=== PATIENT | male | born 1970 | race Caucasian/White ===

== ENCOUNTER 2020-05-16 12:02 | Observation (INO) | payer SELFPAY ==
[~2020-05-16] VITALS: Ht 172 cm; Wt 86.5 kg
--- NOTE | 2020-05-16 12:25 | ED Chest Pain ---
General Stated Complaint: CHEST PAIN;SOA;LEFT SIDE FACIAL TIGHTNESS Source: patient Exam Limitations: no limitations History of Present Illness Date Seen by Provider: May 16, 2020 Time Seen by Provider: 12:01 Initial Comments The patient presents to ER by private conveyance from home with chief complaint of 2 days of progressively worsening for body aches and left-sided chest pain worsening on deep inspiration or direct palpation. He also has some left-sided abdominal pain. He does not follow routinely with a doctor nor take any medications. No previous history of coronary disease that he is aware of. He do es not know of any other medical problems or risk factors. He does not smoke cigarettes but has a remote history of cannabis use. He does occasionally drink alcohol but none recently. He says the past 2 days she's been too weak to get out of bed and feels like he is having all over pain 25 out of 10. He has not taken any NSAIDs or Tylenol for his pain. He has not seen any other provider prior to coming here. He has not had any recent travel outside the area. 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 He has been working in the heat recently. He is not having any lateralizing symptoms. No confusion double vision dysuria cough fever, chills, nausea, vomiting, diarrhea, constipation. No known sick contacts. Allergies and Home Medications Allergies Coded Allergies: No Known Drug Allergies (Unverified , 04/08/15) Patient Home Medication List Home Medication List Reviewed: Yes Review of Systems Review of Systems Constitutional: No chills, No fever; malaise, weakness EENTM: No Blurred Vision, No Double Vision Respiratory: Denies Cough, Denies Shortness of Air Cardiovascular: See HPI, Chest Pain; Denies Edema Gastrointestinal: Denies Abdomen Distended, Denies Abdominal Pain Genitourinary: Denies Burning, Denies Discharge Musculoskeletal: No back pain, No joint pain Skin: No change in color, No lumps, No pruritus, No rash Psychiatric/Neurological: Denies Headache, Denies Numbness, Denies Paresthesia, Denies Seizure Hematologic/Lymphatic: Denies Anemia, Denies Blood Clots All Other Systems Reviewed Negative Unless Noted: Yes Past Qzzrztm-Whidvc-Sjehku Hx Patient Social History Alcohol Use: Occasionally Uses Recreational Drug Use: No Smoking Status: Current Everyday Smoker Type Used: Cigarettes Physical Exam Vital Signs Vital Signs - First Documented 05/16/20 12:05 Temp 37.0 Pulse 57 Resp 18 B/P (MAP) 152/106 (121) Pulse Ox 98 O2 Delivery Room Air Capillary Refill : Height, Weight, BMI Height: 0'67.00" Weight: 189lbs. oz. 85.399479di; BMI Method: General Appearance: WD/WN, Moderate Distress HEENT: PERRL/EOMI, Pharynx Normal, Moist Mucous Membranes Neck: Full Range of Motion, Normal Inspection Respiratory: No Chest Non Tender (left chest pain reproducible to direct palpation); Lungs Clear, Normal Breath Sounds, No Accessory Muscle Use, No Respiratory Distress Cardiovascular: Regular Rate, Rhythm, No Edema, Normal Peripheral Pulses Gastrointestinal: Normal Bowel Sounds, Non Tender, Soft Extremity: Normal Capillary Refill, Normal Inspection, No Pedal Edema Neurologic/Psychiatric: Alert, Oriented x3, No Motor/Sensory Deficits, Normal Mood/Affect, pheresis specialist II-XII Norm as Tested, Other (NIH of 0 points) Skin: Normal Color, Warm/Dry Progress/Results/Core Measures Results/Orders Lab Results Laboratory Tests Test 05/16/20 12:30 Range/Units White Blood Count 7.7 4.3-11.0 10^3/uL Red Blood Count 4.63 4.35-5.85 10^6/uL Hemoglobin 14.0 13.3-17.7 G/DL Hematocrit 41 40-54 % Mean Corpuscular Volume 89 80-99 FL Mean Corpuscular Hemoglobin 30 25-34 PG Mean Corpuscular Hemoglobin Concent 34 32-36 G/DL Red Cell Distribution Width 14.0 10.0-14.5 % Platelet Count 315 130-400 10^3/uL Mean Platelet Volume 9.9 7.4-10.4 FL Neutrophils (%) (Auto) 53 42-75 % Lymphocytes (%) (Auto) 36 12-44 % Monocytes (%) (Auto) 7 0-12 % Eosinophils (%) (Auto) 3 0-10 % Basophils (%) (Auto) 1 0-10 % Neutrophils # (Auto) 4.1 1.8-7.8 X 10^3 Lymphocytes # (Auto) 2.8 1.0-4.0 X 10^3 Monocytes # (Auto) 0.6 0.0-1.0 X 10^3 Eosinophils # (Auto) 0.3 0.0-0.3 10^3/uL Basophils # (Auto) 0.0 0.0-0.1 10^3/uL Prothrombin Time 12.3 12.2-14.7 SEC INR Comment 0.9 0.8-1.4 Activated Partial Thromboplast Time 31 24-35 SEC D-Dimer 0.53 H 0.00-0.49 UG/ML Sodium Level 140 135-145 MMOL/L Potassium Level 4.0 3.6-5.0 MMOL/L Chloride Level 107 98-107 MMOL/L Carbon Dioxide Level 22 21-32 MMOL/L Anion Gap 11 5-14 MMOL/L Blood Urea Nitrogen 15 7-18 MG/DL Creatinine 0.91 0.60-1.30 MG/DL Estimat Glomerular Filtration Rate > 60 BUN/Creatinine Ratio 16 Glucose Level 89 70-105 MG/DL Calcium Level 8.9 8.5-10.1 MG/DL Corrected Calcium 8.7 8.5-10.1 MG/DL Magnesium Level 2.0 1.6-2.4 MG/DL Total Bilirubin 0.6 0.1-1.0 MG/DL Aspartate Amino Transf (AST/SGOT) 20 5-34 U/L Alanine Aminotransferase (ALT/SGPT) 41 0-55 U/L Alkaline Phosphatase 83 40-136 U/L Lactate Dehydrogenase 193 125-220 U/L Total Creatine Kinase 118 30-200 U/L Myoglobin 25.6 10.0-92.0 NG/ML Troponin I < 0.028 <0.028 NG/ML C-Reactive Protein High Sensitivity 0.77 H 0.00-0.50 MG/DL B-Type Natriuretic Peptide 28.3 <100.0 PG/ML Total Protein 7.2 6.4-8.2 GM/DL Albumin 4.2 3.2-4.5 GM/DL Procalcitonin 0.03 <0.10 NG/ML My Orders Orders - HEMANT SABA Procalcitonin (Pct) (05/16/20 12:20) Hs C Reactive Protein (05/16/20 12:20) LDH (05/16/20 12:20) Blood Culture (05/16/20 12:20) Sputum Culture (05/16/20 12:20) Ekg Tracing (05/16/20 12:20) Chest 1 View, Ap/Pa Only (05/16/20 12:20) Coronavirus Sars-Cov-2 So 2018 (05/16/20 12:20) Cbc With Automated Diff (05/16/20 12:20) Magnesium (05/16/20 12:20) Comprehensive Metabolic Panel (05/16/20 12:20) Myoglobin Serum (05/16/20 12:20) Protime With Inr (05/16/20 12:20) Partial Thromboplastin Time (05/16/20 12:20) O2 (05/16/20 12:20) Monitor-Rhythm Ecg Trace Only (05/16/20 12:20) Lipid Panel (05/17/20 06:00) Ed Iv/Invasive Line Start (05/16/20 12:20) Creatine Kinase (05/16/20 12:20) BNP (05/16/20 12:20) Troponin I (05/16/20 12:20) Nitroglycerin 0.4 Mg Btl 25's (Nitrostat (05/16/20 12:30) Aspirin Chewable Tablet (Baby Aspirin Ch (05/16/20 12:30) Ed Iv/Invasive Line Start (05/16/20 12:26) Lactated Ringers (Lr 1000 Ml Iv Solution (05/16/20 12:26) Fibrin Degradation Products (05/16/20 12:30) Morphine Injection (Morphine Injection (05/16/20 12:51) Morphine Injection (Morphine Injection (05/16/20 12:52) Morphine Injection (Morphine Injection (05/16/20 13:15) Ct Angio Chest W (05/16/20 13:26) Medications Given in ED Current Medications Medications Dose Ordered Sig/Fidencio Route Start Time Stop Time Status Last Admin Dose Admin Aspirin 324 mg ONCE ONCE PO 05/16/20 12:30 05/16/20 12:31 DC 05/16/20 12:42 324 MG Lactated Ringer's 1,000 ml @ 0 mls/hr Q0M ONCE IV 05/16/20 12:26 05/16/20 12:27 DC 05/16/20 12:42 1,000 MLS/HR Nitroglycerin 0.4 mg UD PRN SL 05/16/20 12:30 05/16/20 12:42 0.4 MG Vital Signs/I&O 05/16/20 05/16/20 12:05 12:05 Temp 37.0 Pulse 57 Resp 18 B/P (MAP) 152/106 (121) Pulse Ox 98 O2 Delivery Room Air Progress Progress Note #1: Time: 12:26 Progress Note Plan to workup his chest pain with aspirin and nitroglycerin. Chest x-ray and lab. Heat exhaustion is a possibility. Because of his all over body aches we'll also swabbed for coronavirus, influenza. Aseptic vital signs. We'll hold off on the antibiotics. 1 L of lactated Ringer's. Progress Note #2: Time: 13:16 Progress Note nitroglycerin had a modest effect on his blood pressure but did nothing for his pain. He still rates it as 10 out of 10. 2 mg morphine were given which she says had no effect. We will attempt 4 milligrams morphine. Blood pressure standing 130-150 systolic range. Progress Note #3: Time: 13:44 Progress Note Patient's symptoms have improved some but he still feeling quite weak after the 4 mg morphine. Vital signs are still aseptic. Because of the modestly elevated d-dimer and chest pain plan to send him for CT angiogram on his way upstairs. We have communicated this to Dr. Tellez and she is okay with this plan. Chest pain does not improve with nitroglycerin and is reproducible to direct palpation. It be reasonable to trend some serial troponin since are going to keep him. Plan to keep him for IV rehydration secondary to heat exhaustion. COVID-19 test is pending. Initial ECG Impression Date: May 16, 2020 Initial ECG Impression Time: 12:08 Initial ECG Rate: 55 Initial ECG Rhythm: Normal Sinus Initial ECG Intervals: Normal Initial ECG Impression: Normal Initial ECG Comparisson: No Previous ECG Available Comment Normal sinus rhythm without ST-T wave elevation or depression. borderline mean electrical axis left deviation. Diagnostic Imaging Diagonstic Imaging: Xray Plain Films/CT/US/NM/MRI: chest Comments [facility], [place] NAME: TOM LLAMAS MED REC#: [id number] PT STATUS: ADM Rito : 1970 PHYSICIAN: HEMANT SABA MD ADMIT DATE: 05/16/20/[facility] Draft Date of Exam:05/16/20 CHEST 1 VIEW, AP/PA ONLY INDICATION: Weakness and positive COVID. TIME OF EXAM: 1:33 PM. COMPARISON: No prior studies are available for comparison. FINDINGS: The lungs appear to be clear. The pulmonary vascularity is normal. No infiltrate, effusion, or pneumothorax is detected. There are postop changes in the lower cervical spine. IMPRESSION: No acute cardiopulmonary process is detected. Dictated on workstation # [id number] Dict: 05/16/20 1406 Trans: 05/16/20 1417 [id number] Interpreted by: SYLVESTER KAPOOR MD Electronically signed by: Reviewed: Reviewed by Md Diagonstic Imaging: CT (angiogram) Plain Films/CT/US/NM/MRI: chest Comments [facility] [place] NAME: TOM LLAMAS [facility] REC#: [id number] PT STATUS: ADM Rito : 1970 PHYSICIAN: HEMANT SABA MD ADMIT DATE: 05/16/20/[facility] Signed Date of Exam:05/16/20 CT ANGIO CHEST W PROCEDURE: CT angiography Chest TECHNIQUE: After intravenous administration of contrast, thin section axial CT angiography of the chest was performed. 3D MIP reconstructions were made. All CT scans use one or more of the following dose optimizing techniques: automated exposure control, MA and/or KvP adjustment based on a patient size and exam type, or iterative reconstruction. INDICATION: Shortness of breath and chest pain COMPARISON: None available. FINDINGS: Vasculature: No pulmonary emboli. No CT evidence of pulmonary hypertension or right ventricular strain. Normal caliber thoracic aorta. The aorta is not opacified and therefore cannot be assessed for dissection. Heart and mediastinum: Visualized thyroid is normal. No supraclavicular, axillary, or intra-thoracic lymphadenopathy. The heart is normal in size without pericardial effusion. Pleura: No pleural effusion or pneumothorax. Lungs and airway: No endoluminal lesion in the trachea or central bronchi. No pulmonary mass, nodule or consolidation. Upper abdomen: Allowing for the phase of contrast, no acute abnormality in the upper abdomen is seen. Postoperative changes along the GE junction. Musculoskeletal: No concerning osseous lesion. Old, incompletely healed fracture in the left scapula. IMPRESSION: 1. No acute cardiac pulmonary process. Specifically, no pulmonary emboli. Dictated by: Dictated on workstation # [id number] Dict: 05/16/20 1509 Trans: 05/16/20 1513 [facility] [id number] Interpreted by: SARITA DEJESUS MD Electronically signed by: SARITA DEJESUS MD 05/16/20 1513 Reviewed: Reviewed by Me Departure Communication (Admissions) Time/Spoke to Admitting Phy: 13:42 Discussed the case with Dr. Tellez and she agrees to observe the patient for heat exhaustion, chest pain workup. She also agrees with CT angiogram of the chest on his way upstairs. She will pursue the results. Time/Spoke to Consulting Phy: 13:38 Discussed the case with Jhonatan in catheter lab and he will pass the message onto Dr. Johnson. Impression Primary Impression: Acute coronary syndrome Additional Impression: Heat exhaustion Qualified Codes: T67.5XXA - Heat exhaustion, unspecified, initial encounter Disposition: ADMITTED INPATIENT Condition: Stable Admissions Decision to Admit Reason: Admit from ER (General) Decision to Admit/Date: May 16, 2020 Time/Decision to Admit Time: 13:00 Departure-Patient Inst. Referrals: STONE BREWER MD (PCP/Family) Primary Care Physician HEMANT SABA May 16, 2020 12:25
[2020-05-16] MEDS ORDERED: LACTATED RINGERS 1,000 ML IV ONE (12:26)
[2020-05-16] MEDS ORDERED: ASPIRIN 81 MG CHEW (CHILDREN'S ASA) PO ONE (12:30)
[2020-05-16] MEDS: NITROGLYCERIN 0.4 MG SL TABS BTL 25'S SL PRN ×3 (12:42→15:35)
[2020-05-16 12:45] LABS: BASOPHILS % (AUTO) 1 % (0-10); EOSINOPHILS # (AUTO) 0.3 10^3/uL (0.0-0.3); EOSINOPHILS % (AUTO) 3 % (0-10); HEMATOCRIT 41 % (40-54); LYMPHOCYTES # (AUTO) 2.8 X 10^3 (1.0-4.0); LYMPHOCYTES % (AUTO) 36 % (12-44); MEAN CORPUSCULAR HEMOGLOBIN 30 PG (25-34); MEAN CORPUSCULAR HGB CONC 34 G/DL (32-36); MEAN CORPUSCULAR VOLUME 89 FL (80-99); MEAN PLATELET VOLUME 9.9 FL (7.4-10.4); MONOCYTES # (AUTO) 0.6 X 10^3 (0.0-1.0); MONOCYTES % (AUTO) 7 % (0-12); NEUTROPHILS # (AUTO) 4.1 X 10^3 (1.8-7.8); NEUTROPHILS % (AUTO) 53 % (42-75); PLATELET COUNT 315 10^3/uL (130-400); WHITE BLOOD COUNT 7.7 10^3/uL (4.3-11.0)
[2020-05-16] MEDS ORDERED: morphine INJ 10 MG/ML 1ML (SYR OR VIAL) IVP STA ×2 (12:51→13:15)
[2020-05-16] MEDS ORDERED: morphine INJ 10 MG/ML 1ML (SYR OR VIAL) ONE (12:52)
[2020-05-16 13:02] LABS: FIBRIN DEGRADATION PRODUCTS 0.53 UG/ML (0.00-0.49); INR 0.9 (0.8-1.4); PROTHROMBIN TIME PATIENT 12.3 SEC (12.2-14.7)
--- NOTE | 2020-05-16 13:10 | NUR ---
DR SABA ATTEMPT TO I AND D WOUND ON BACK
[2020-05-16 13:12] LABS: ALANINE AMINOTRANSFERASE 41 U/L (0-55); ALBUMIN 4.2 GM/DL (3.2-4.5); ALKALINE PHOSPHATASE 83 U/L (40-136); BILIRUBIN,TOTAL 0.6 MG/DL (0.1-1.0); BUN/CREATININE RATIO 16; CALCIUM 8.9 MG/DL (8.5-10.1); CARBON DIOXIDE 22 MMOL/L (21-32); CHLORIDE 107 MMOL/L (98-107); CREATINE KINASE 118 U/L (30-200); CREATININE SERUM 0.91 MG/DL (0.60-1.30); GFR ESTIMATED > 60; GLUCOSE 89 MG/DL (70-105); SODIUM 140 MMOL/L (135-145); TOTAL PROTEIN 7.2 GM/DL (6.4-8.2)
[2020-05-16] MEDS ORDERED: IOHEXOL 350 MG/ML 100 ML (OMNIPAQUE 350) VIAL IV ONE (14:15)
[2020-05-16] MEDS ORDERED: NS 100 ML (IVPB) BAG IV ONE (14:15)
[2020-05-16] MEDS ORDERED: HOLD METFORMIN - RECEIVED CONTRAST 20 ML VIAL IV SCH (14:15)
[2020-05-16] MEDS ORDERED: CATHETER FLUSH 10 ML SYR IV PRN (14:15)
--- NOTE | 2020-05-16 14:18 | Diagnostic Imaging Report ---
INDICATION: Weakness and positive COVID. TIME OF EXAM: 1:33 PM. COMPARISON: No prior studies are available for comparison. FINDINGS: The lungs appear to be clear. The pulmonary vascularity is normal. No infiltrate, effusion, or pneumothorax is detected. There are postop changes in the lower cervical spine. IMPRESSION: No acute cardiopulmonary process is detected. Dictated by: Dictated on workstation # [id number]
--- NOTE | 2020-05-16 15:14 | Diagnostic Imaging Report ---
PROCEDURE: CT angiography Chest TECHNIQUE: After intravenous administration of contrast, thin section axial CT angiography of the chest was performed. 3D MIP reconstructions were made. All CT scans use one or more of the following dose optimizing techniques: automated exposure control, MA and/or KvP adjustment based on a patient size and exam type, or iterative reconstruction. INDICATION: Shortness of breath and chest pain COMPARISON: None available. FINDINGS: Vasculature: No pulmonary emboli. No CT evidence of pulmonary hypertension or right ventricular strain. Normal caliber thoracic aorta. The aorta is not opacified and therefore cannot be assessed for dissection. Heart and mediastinum: Visualized thyroid is normal. No supraclavicular, axillary, or intra-thoracic lymphadenopathy. The heart is normal in size without pericardial effusion. Pleura: No pleural effusion or pneumothorax. Lungs and airway: No endoluminal lesion in the trachea or central bronchi. No pulmonary mass, nodule or consolidation. Upper abdomen: Allowing for the phase of contrast, no acute abnormality in the upper abdomen is seen. Postoperative changes along the GE junction. Musculoskeletal: No concerning osseous lesion. Old, incompletely healed fracture in the left scapula. IMPRESSION: 1. No acute cardiac pulmonary process. Specifically, no pulmonary emboli. Dictated by: Dictated on workstation # [id number]
[2020-05-16 15:34] VITALS: BP 142/99
[2020-05-16 16:35] VITALS: BP 132/90
--- NOTE | 2020-05-16 16:36 | NUR ---
Pt sleeping at this time; awaiting floor RN to come get pt to transport upstairs.
--- OUTSIDE RECORDS SUMMARY | 2020-05-16 17:09 | XMS REPORT | Continuity of Care Document ---
Author Organization Unknown Address Unknown Phone Unavailable Allergies Active Description Code Type Severity Reaction Onset Reported/Identified Relationship to Patient Clinical Status Yes No Known Drug Allergies [id number] Drug Allergy Unknown N/A 04/08/2015 Medications There is no data. Problems There is no data. Procedures There is no data. Results Test Result Range Complete blood count (CBC) with automate d white blood cell (WBC) differential - 05/16/20 12:30 Blood leukocytes automated count (number/volume) 7.7 10*3/uL 4.3-11.0 Blood erythrocytes automated count (number/volume) 4.63 10*6/uL 4.35-5.85 Venous blood hemoglobin measurement (mass/volume) 14.0 g/dL 13.3-17.7 Blood hematocrit (volume fraction) 41 % 40-54 Automated erythrocyte mean corpuscular volume 89 [ foz_us] 80-99 Automated erythrocyte mean corpuscular h emoglobin (mass per erythrocyte) 30 pg 25-34 Automated erythrocyte mean corpuscular h emoglobin concentration measurement (mass/volume) 34 g/dL 32-36 Automated erythrocyte distribution width ratio 14. 0 % 10.0- 14.5 Automated blood platelet count (count/volume) 315 10*3/uL 130-400 Automated blood platelet mean volume measurement 9.9 [foz_us] 7.4-10.4 Automated blood neutrophils/100 leukocytes 53 % 42-75 Automated blood lymphocytes/100 leukocytes 36 % 12-44 Blood monocytes/100 leukocytes 7 % 0-12 Automated blood eosinophils/100 leukocytes 3 % 0-10 Automated blood basophils/100 leukocytes 1 % 0-10 Blood neutrophils automated count (number/volume) 4.1 10*3 1.8-7.8 Blood lymphocytes automated count (number/volume) 2.8 10*3 1.0-4.0 Blood monocytes automated count (number/volume) 0. 6 10*3 0.0-1.0 Automated eosinophil count 0.3 10*3/uL 0 .0-0.3 Automated blood basophil count (count/volume) 0.0 10*3/uL 0.0-0.1 PT panel in platelet poor plasma by coag ulation assay - 05/16/20 12:30 Prothrombin time (PT) in platelet poor plasma by coagu lation assay 12.3 s 12.2-14.7 INR in platelet poor plasma or blood by coagulation as say 0.9 0.8-1.4 Activated partial thromboplastin time (a PTT) in platelet poor plasma bycoagulation assay - 05/16/20 12:30 Activated partial thromboplastin time (a PTT) in platelet poor plasma bycoagulation assay 31 s 24-35 Fibrin D-dimer FEU measurement in platel et poor plasma (mass/volume) - 05/16/20 12:30 Fibrin D-dimer FEU measurement in platelet poor plasma (mass/volume) 0.53 ug/mL 0.00-0.49 Serum ragweed IgE antibody assay - 05/16 12:30 Serum ragweed IgE antibody assay 193 U/L 125-220 PROCALCITONIN (PCT) - 05/16/20 12:30 PROCALCITONIN (PCT) 0.03 ng/mL <0.10 Comprehensive metabolic panel - 05/16/20 12:30 Serum or plasma sodium measurement (moles/volume) 140 mmol/L 135-145 Serum or plasma potassium measurement (moles/volume) 4.0 mmol/L 3.6-5.0 Serum or plasma chloride measurement (moles/volume) 107 mmol/L 98-107 Carbon dioxide 22 mmol/L 21-32 Serum or plasma anion gap determination (moles/volume) 11 mmol/L 5-14 Serum or plasma urea nitrogen measurement (mass/volume ) 15 mg/dL 7-18 Serum or plasma creatinine measurement (mass/volume) 0.91 mg/dL 0.60-1.30 Serum or plasma urea nitrogen/creatinine mass ratio 16 NRG Serum or plasma creatinine measurement w ith calculation of estimated glomerular filtration rate > NRG Serum or plasma glucose measurement (mass/volume) 89 mg/dL 70-105 Serum or plasma calcium measurement (mass/volume) 8.9 mg/dL 8.5-10.1 Serum or plasma total bilirubin measurement (mass/volu me) 0.6 mg/dL 0.1-1.0 Serum or plasma alkaline phosphatase mitul surement (enzymatic activity/volume) 83 U/L 40-136 Serum or plasma aspartate aminotransfera se measurement (enzymatic activity/volume) 20 U/L 5-34 Serum or plasma alanine aminotransferase measurement (enzymatic activity/volume) 41 U/L 0-55 Serum or plasma protein measurement (mass/volume) 7.2 g/dL 6.4-8.2 Serum or plasma albumin measurement (mass/volume) 4.2 g/dL 3.2-4.5 CALCIUM CORRECTED 8.7 mg/dL 8.5-10.1 Magnesium - 05/16/20 12:30 Magnesium 2.0 mg/dL 1.6-2.4 Serum or plasma creatine kinase measurem ent (enzymatic activity/volume) - 05/16/20 12:30 Serum or plasma creatine kinase measurem ent (enzymatic activity/volume) 118 U/L 30-200 Myoglobin, serum - 05/16/20 12:30 Myoglobin, serum 25.6 ng/mL 10.0-92.0 Serum or plasma lithium measurement (mol es/volume) - 05/16/20 12:30 BNP PT 28.3 pg/mL <100.0 Serum or plasma troponin i.cardiac measu rement (mass/volume) - 05/16/20 12:30 Serum or plasma troponin i.cardiac measurement (mass/v olume) < ng/mL <0.028 Serum or plasma C reactive protein measu rement (mass/volume) - 05/16/20 12:30 Serum or plasma C reactive protein measurement (mass/v olume) 0.77 mg/dL 0.00-0.50 Encounters ACCT No. Visit Date/Time Discharge Status Pt. Type Provider Facility Loc./Unit Complaint [id number] 04/08/2015 07:46:00 015 23:59:59 CLS Outpatient MARIAMA VILLALTA APRN [facility] CARD [id number] 05/16/2020 13:45:[address] Inpatient DAVE ETIENNE MD [facility] CSD ACS;PUI
--- OUTSIDE RECORDS SUMMARY | 2020-05-16 17:09 | XMS REPORT ---
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 Role Phone Unavailable Unavailable Unavailable Unavailable Allergies No Information Medications No Information Problems No Information Procedures No Information Immunizations No Information Results Test Name Value Interpretation Reference Range Date Time Fa cility (Normalized) (Normalized) (Medline Reference) not yet categorized on 2020-05-16 PROCALCITONIN 0.03 (NEG) 05-16-2020 PENDING LOCA TION (PCT) 08:30-0 [facility] (62832) laboratory on 2020-05-16 Albumin 4.2 g/dL (NEG) 3.4 - 5.4 g/dL 05-16-2020 PENDING LOCATION [Mass/Vol] 08:30-0400 [facility] ([id number]) ALP [Catalytic 83 U/L (NEG) 44 - 147 U/L 05-16-2020 PEND ING LOCATION activity/Vol] 08:30-0400 [facility] ([id number]) ALT [Catalytic 41 U/L (NEG) 4 - 40 U/L 05-16-2020 PENDIN G LOCATION activity/Vol] 08:30-0400 [facility] ([id number]) Anion gap 11 mmol/L (NEG) 3 - 11 mmol/L 05-16-2020 PENDING LOCATION [Moles/Vol] 08:30-0400 [facility] ([id number]) aPTT Coag (PPP) 31 s (NEG) 25 - 35 s 05-16-2020 PENDIN G LOCATION [Time] 08:30-0400 [facility] ([id number]) AST [Catalytic 20 U/L (NEG) 10 - 34 U/L 05-16-2020 PENDI NG LOCATION activity/Vol] 08:30-0400 [facility] ([id number]) Basophils (Bld) 0.0 10*3/uL (NEG) 0 - 0.3 10*3/uL 05-16-2020 PENDING LOCATION [#/Vol] 08:30-0400 [facility] ([id number]) Basophils/100 1 % (NEG) 0.5 - 1 % 05-16-2020 PENDING LOCATION WBC (Bld) 08:30-0400 [facility] ([id number]) Bilirubin 0.6 mg/dL (NEG) 0.1 - 1.2 mg/dL 05-16-2020 PENDIN G LOCATION [Mass/Vol] 08:30-0400 [facility] ([id number]) Calcium 8.9 mg/dL (NEG) 8.5 - 10.2 mg/dL 05-16-2020 PENDI NG LOCATION [Mass/Vol] 08:30-0400 [facility] ([id number]) Calcium 8.7 mg/dL (NEG) 8.5 - 10.2 mg/dL 05-16-2020 PENDI NG LOCATION [Mass/Vol] 08:30-0400 [facility] ([id number]) Chloride 107 mmol/L (NEG) 95 - 106 mmol/L 05-16-2020 PENDI NG LOCATION [Moles/Vol] 08:30-0400 [facility] ([id number]) CK [Catalytic 118 U/L (NEG) 05-16-2020 PENDING LOCA TION activity/Vol] 08:30-0400 [facility] ([id number]) CO2 [Moles/Vol] 22 mmol/L (NEG) 23 - 29 mmol/L 05-16-2020 P ENDING LOCATION 08:30-0400 [facility] ([id number]) Creatinine 0.91 mg/dL (NEG) 05-16-2020 PENDING LOCATI ON [Mass/Vol] 08:30-0400 [facility] ([id number]) Creatinine and > (no code) 05-16-2020 PENDING LOC ATION Glomerular 08:30-0400 [facility] ([id number]) filtration rate.predicted panel - Serum, Plasma or Blood CRP [Mass/Vol] 0.77 (H) 05-16-2020 PENDING LOC ATION 08:30-0400 [facility] ([id number]) Eosinophils 0.3 10*3/uL (NEG) 0.05 - 0.5 05-16-2020 PENDING LOCATION (Bld) [#/Vol] 10*3/uL 08:30-0400 [facility] ([id number]) Eosinophils/100 3 % (NEG) 1 - 4 % [facility] WBC (Bld) 08:30-0400 [facility] ([id number]) Erythrocyte 14.0 % (NEG) 11.6 - 14.6 % 05-16-2020 [facility] distribution 08:30-0400 [facility] (70005) width (RBC) [Ratio] Fibrin D-dimer 0.53 (H) 05-16-2020 PENDING LOC ATION FEU (PPP) 08:30-0400 [facility] ([id number]) [Mass/Vol] Glucose 89 mg/dL (NEG) 60 - 125 mg/dL 05-16-2020 PENDING LOCATION [Mass/Vol] 08:30-0400 [facility] ([id number]) Hematocrit (Bld) 41 % (NEG) 36.1 - 50.3 % 05-16-2020 P ENDING LOCATION [Volume 08:30-0400 [facility] (47090) fraction] Hemoglobin (Bld) 14.0 g/dL (NEG) 12.1 - 17.2 g/dL 05-16-2020 PENDING LOCATION [Mass/Vol] 08:30-0400 [facility] ([id number]) INR Coag 0.9 (NEG) 05-16-2020 PENDING LOCATI ON (Platelet poor 08:30-0400 [facility] ([id number]) plasma or blood) [Relative time] LDH [Catalytic 193 U/L (NEG) 105 - 333 U/L 05-16-2020 [facility] LOCATION activity/Vol] 08:30-0400 [facility] ([id number]) Lymphocytes 2.8 10*3/uL (NEG) 0.9 - 2.9 05-16-2020 PENDING LOCATION (Bld) [#/Vol] 10*3/uL 08:30-0400 [facility] ([id number]) Lymphocytes/100 36 % (NEG) 20 - 40 % 05-16-2020 [facility] WBC (Bld) 08:30-0400 [facility] ([id number]) Magnesium 2.0 mg/dL (NEG) 1.7 - 2.2 mg/dL 05-16-2020 PENDIN G LOCATION [Mass/Vol] 08:30-0400 [facility] ([id number]) MCH (RBC) 30 pg (NEG) 27 - 31 pg 05-16-2020 PENDING LOC ATION [Entitic mass] 08:30-0400 [facility] ([id number]) MCHC (RBC) 34 g/dL (NEG) 32 - 36 g/dL 05-16-2020 PENDING LOCATION [Mass/Vol] 08:30-0400 [facility] ([id number]) MCV (RBC) 89 (NEG) 05-16-2020 PENDING LOCATI ON [Entitic vol] 08:30-0400 [facility] ([id number]) Monocytes (Bld) 0.6 10*3/uL (NEG) 0.3 - 0.9 05-16-2020 PEND ING LOCATION [#/Vol] 10*3/uL 08:30-0400 [facility] ([id number]) Monocytes/100 7 % (NEG) 2 - 8 % 05-16-2020 PENDING LOCATION WBC (Bld) 08:30-0400 [facility] ([id number]) Myoglobin 25.6 ng/mL (NEG) 05-16-2020 PENDING LOCATI ON [Mass/Vol] 08:30-0400 [facility] ([id number]) Natriuretic 28.3 pg/mL (no code) 0 - 100 pg/mL 05-16-2020 PENDI NG LOCATION peptide B (Bld) 08:30-0400 [facility] ([id number]) [Mass/Vol] Neutrophils 4.1 10*3/uL (NEG) 1.7 - 7 10*3/uL 05-16-2020 [facility] LOCATION (Bld) [#/Vol] 08:30-0400 [facility] ([id number]) Neutrophils/100 53 % (NEG) 40 - 60 % 05-16-2020 PENDIN G LOCATION WBC (Bld) 08:30-0400 [facility] ([id number]) Platelet mean 9.9 (NEG) 05-16-2020 PENDING LOCA TION volume (Bld) 08:30-0400 [facility] ([id number]) [Entitic vol] Platelets (Bld) 315 10*3/uL (NEG) 150 - 450 05-16-2020 PEND ING LOCATION [#/Vol] 10*3/uL 08:30-0400 [facility] (34160) Potassium 4.0 mmol/L (NEG) 3.7 - 5.2 mmol/L 05-16-2020 PEND ING LOCATION [Moles/Vol] 08:30-0400 [facility] ([id number]) Protein 7.2 g/dL (NEG) 6.4 - 8.3 g/dL 05-16-2020 PENDING LOCATION [Mass/Vol] 08:-0 [facility] ([id number]) PT Coag (PPP) 12.3 s (NEG) 9.4 - 12.5 s 05-16-2020 PENDI NG LOCATION [Time] 08: [facility] () RBC (Bld) 4.63 10*6/uL (NEG) 4.2 - 6.1 05-16-2020 PENDING L OCATION [#/Vol] 10*6/uL 08: [facility] (35514) Sodium 140 mmol/L (NEG) 135 - 145 mmol/L 05-16-2020 PEND ING LOCATION [Moles/Vol] 08: [facility] (83117) Troponin ng/mL (NEG) 0 - 0.4 ng/mL 05-16-2020 PENDING LOCATION I.cardiac 08: [facility] (40566) [Mass/Vol] Urea nitrogen 15 mg/dL (NEG) 7 - 20 mg/dL 05-16-2020 PENDI NG LOCATION [Mass/Vol] 08: [facility] (32958) Urea 16 mg/mg (no code) 6 - 22 mg/mg 05-16-2020 PENDING L OCATION nitrogen/Creatin 08: [facility] (44167) ine [Mass ratio] WBC (Bld) 7.7 10*3/uL (NEG) 3.5 - 10.5 05-16-2020 PENDING L OCATION [#/Vol] 10*3/uL 08: [facility] ([id number]) Vital Signs No Information Interventions No Information Plan of Treatment No Information Goals No Information Social History No Information Functional Status No Information Mental Status No Information Encounters No Information Medical Equipment No Information Payers No Information Additional Source Comments This clinical document has been generated using [employer] software that has been certified by the Office of the National Coordinator for Health Information Technology (ONC 15.99.04.3023.Diam.31.00.0.684431) and the National [employer] for [employer] Bench [employer]ic (NCQA, as an eMeasure certified technology). FOR RECORDS PERTAINING TO PATIENTS WHO ARE OR HAVE BEEN ENROLLED IN A CHEMICAL D EPENDENCY/SUBSTANCE ABUSE PROGRAM, SOME INFORMATION MAY BE OMITTED. This clinica l summary was aggregated from multiple sources. Caution should be exercised in using it in the provision of clinical care. This summary normalizes information from multiple sources, and as a consequence, information in this document may ma terially change the coding, format and clinical context of patient data. In doris tion, data may be omitted in some cases. CLINICAL DECISIONS SHOULD BE BASED ON T HE PRIMARY CLINICAL RECORDS. [facility] [employer] [facility]. provides no warranty or guara ntee of the accuracy or completeness of information in this document.The followi ng information is based on time limited clinical information
[2020-05-16] MEDS ORDERED: NITROGLYCERIN 0.4 MG SL TABS BTL 25'S SL PRN (19:45)
[2020-05-16] MEDS ORDERED: ONDANSETRON 4 MG/2 ML (SDV) Z0FRAN IVP PRN ×2 (19:45)
[2020-05-16] MEDS ORDERED: ACETAMINOPHEN 500 MG TAB (TYLENOL) PO PRN (19:45)
[2020-05-16] MEDS ORDERED: ANTACID SUSP 30 ML UDC (MYLANTA) PO PRN (19:45)
[2020-05-16] MEDS ORDERED: morphine INJ 4 MG/ML 1 ML (VIAL/SYRINGE) IV PRN (19:45)
[2020-05-16 20:00] VITALS: BP 135/94
[2020-05-16] MEDS: LACTATED RINGERS 1,000 ML IV SCH (20:04)
[2020-05-16 23:50] VITALS: BP 126/79
[2020-05-17 01:07] LABS: BASOPHILS % (AUTO) 0 % (0-10); EOSINOPHILS # (AUTO) 0.2 10^3/uL (0.0-0.3); EOSINOPHILS % (AUTO) 3 % (0-10); HEMATOCRIT 39 % (40-54); LYMPHOCYTES # (AUTO) 2.5 X 10^3 (1.0-4.0); LYMPHOCYTES % (AUTO) 36 % (12-44); MEAN CORPUSCULAR HEMOGLOBIN 30 PG (25-34); MEAN CORPUSCULAR HGB CONC 33 G/DL (32-36); MEAN CORPUSCULAR VOLUME 89 FL (80-99); MEAN PLATELET VOLUME 9.5 FL (7.4-10.4); MONOCYTES # (AUTO) 0.6 X 10^3 (0.0-1.0); MONOCYTES % (AUTO) 8 % (0-12); NEUTROPHILS # (AUTO) 3.6 X 10^3 (1.8-7.8); NEUTROPHILS % (AUTO) 52 % (42-75); PLATELET COUNT 270 10^3/uL (130-400); WHITE BLOOD COUNT 6.9 10^3/uL (4.3-11.0)
[2020-05-17 01:27] LABS: BUN/CREATININE RATIO 16; CALCIUM 8.6 MG/DL (8.5-10.1); CARBON DIOXIDE 25 MMOL/L (21-32); CHLORIDE 107 MMOL/L (98-107); CHOLESTEROL 167 MG/DL (< 200); CREATININE SERUM 0.82 MG/DL (0.60-1.30); GFR ESTIMATED > 60; GLUCOSE 100 MG/DL (70-105); HDL CHOLESTEROL 36 MG/DL (40-60); POTASSIUM 3.3 MMOL/L (3.6-5.0); SODIUM 141 MMOL/L (135-145); TRIGLYCERIDES 288 MG/DL (<150); VLDL CHOLESTEROL 58 MG/DL (5-40)
[2020-05-17] MEDS: LACTATED RINGERS 1,000 ML IV SCH ×3 (03:00→16:45)
[2020-05-17 03:01] VITALS: BP 120/79
[2020-05-17 08:00] VITALS: BP 132/85
--- NOTE | 2020-05-17 08:18 | History & Physical-Hospitalist ---
History of Present Illness HPI/Chief Complaint Pt is a 50yoCM with a PMH of diverticulitis who presented to the ER with weakness and abdominal pain. 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 This morning he states his weakness is still there but somewhat better than when he came in. His most concerning symptom right now is his left sided abdominal pain. He states it's severe and hurts to breath. He also states it is similar to his previous episodes of diverticulitis. He has no had a BM in >24 hours which is unusual for him as he normally has 2-3 BMs per day. He states he is afebrile and does not have a cough. Due to weakness he was tested for COVID19 and that is currently pending. Source: patient Date Seen 05/17/20 Time Seen by a Provider: 08:15 Attending Physician Dave Etienne MD PCP No,Local Physician Referring Physician Date of Admission May 16, 2020 at 17:28 Home Medications & Allergies Home Medications Reviewed patient Home Medication Reconciliation performed by pharmacy medication reconciliations energy conservation technician and/or nursing. Patients Allergies have been reviewed. Allergies Allergies Coded Allergies No Known Drug Allergies (Unverified04/08/15) Past Ibiesry-Gyrsbm-Nrhcqn Hx Past Med/Social Hx: Reviewed Nursing Past Med/Soc Hx Patient Social History Employed/Student: employed Alcohol Use: Occasionally Uses Recreational Drug Use: No Smoking Status: Current Everyday Smoker Type Used: Cigarettes Recent Foreign Travel: No Contact w/other who traveled: No Recent Infectious Disease Expo: No Past Medical History Gastrointestinal: Diverticulosis History of Blood Disorders: No Family History Reviewed Nursing Family Hx Review of Systems Constitutional: No chills, No fever; malaise, weakness Respiratory: No cough, No phlegm, No short of breath Cardiovascular: No chest pain, No edema, No Hx of Intervention, No palpitations Gastrointestinal: abdominal pain (LUQ), constipation; No nausea, No vomiting Genitourinary: No dysuria, No frequency Musculoskeletal: see HPI Skin: no symptoms reported Psychiatric/Neurological: No Symptoms Reported Physical Exam Physical Exam Vital Signs Vital Signs - First Documented 05/16/20 12:05 Temp 37.0 Pulse 57 Resp 18 B/P (MAP) 152/106 (121) Pulse Ox 98 O2 Delivery Room Air Capillary Refill : Less Than 3 Seconds Height, Weight, BMI Height: 0'67.00" Weight: 189lbs. oz. 85.105645lq; 28.00 BMI Method: General Appearance: No Apparent Distress, WD/WN Respiratory: Lungs Clear, No Respiratory Distress Cardiovascular: Regular Rate, Rhythm, No Murmur Gastrointestinal: Normal Bowel Sounds, Soft; No Distended, No Guarding, No Rebound; Tenderness (mild over LUQ) Extremity: Normal Capillary Refill, No Calf Tenderness, No Pedal Edema Neurologic/Psychiatric: Alert, Oriented x3, Normal Mood/Affect Results Results/Procedures Labs Laboratory Tests 05/16/20 12:30 05/17/20 00:59 Patient resulted labs reviewed. Imaging: Reviewed Imaging Report Imaging NAME: TOM LLAMAS [facility] REC#: [id number] PT STATUS: ADM Rito : 1970 PHYSICIAN: HEMANT SABA MD ADMIT DATE: [facility]16/20[facility] Signed Date of Exam:05/16/20 CT ANGIO CHEST W PROCEDURE: CT angiography Chest TECHNIQUE: After intravenous administration of contrast, thin section axial CT angiography of the chest was performed. 3D MIP reconstructions were made. All CT scans use one or more of the following dose optimizing techniques: automated exposure control, MA and/or KvP adjustment based on a patient size and exam type, or iterative reconstruction. INDICATION: Shortness of breath and chest pain COMPARISON: None available. FINDINGS: Vasculature: No pulmonary emboli. No CT evidence of pulmonary hypertension or right ventricular strain. Normal caliber thoracic aorta. The aorta is not opacified and therefore cannot be assessed for dissection. Heart and mediastinum: Visualized thyroid is normal. No supraclavicular, axillary, or intra-thoracic lymphadenopathy. The heart is normal in size without pericardial effusion. Pleura: No pleural effusion or pneumothorax. Lungs and airway: No endoluminal lesion in the trachea or central bronchi. No pulmonary mass, nodule or consolidation. Upper abdomen: Allowing for the phase of contrast, no acute abnormality in the upper abdomen is seen. Postoperative changes along the GE junction. Musculoskeletal: No concerning osseous lesion. Old, incompletely healed fracture in the left scapula. IMPRESSION: 1. No acute cardiac pulmonary process. Specifically, no pulmonary emboli. Assessment/Plan Admission Diagnosis LUQ Pain Admission Status: Observation Assessment and Plan LUQ Pain Concerning for diverticulitis Started on Flagyl and Cipro CT Abd/Pelvis ordered Continue pain regimen Continue PPI Fatigue Chest pain Troponin neg x3 Cardiology consulted in ER, appreciate recs COVID19 pending Clinical Quality Measures AMI/AHF: ASA po Prior to arrival: No DVT/VTE Risk/Contraindication: Risk Factor Score Per Nursin RFS Level Per Nursing on Admit: 2=Moderate DAVE ETIENNE MD May 17, 2020 08:18
[2020-05-17] MEDS ORDERED: metroNIDAZOLE 500MG/100ML IVPB 100 ML IV SCH (08:21)
[2020-05-17] MEDS: PANTOPRAZOLE 40 MG (PROTONIX) VIAL IV SCH (08:40)
[2020-05-17] MEDS: KETOROLAC 30 MG/ML VIAL IVP PRN ×2 (08:40→16:51)
[2020-05-17] MEDS: CIPROFLOXACIN IV 400MG/200ML 200 ML IV SCH ×2 (09:52→20:47)
[2020-05-17] MEDS: ASPIRIN E.C. 81 MG (ECOTRIN) TAB PO SCH (09:53)
[2020-05-17 12:00] VITALS: BP 125/77
--- NOTE | 2020-05-17 14:26 | NUR ---
SPOKE WITH THE PT (I CALLED HIS ROOM PHONE) TO COMPLETE THE MED REC PT DENIES TAKING ANY PRESCRIPTION OR OTC MEDICATIONS I DID UPDATE THE PATIENTS PREFERRED PHARMACY
--- NOTE | 2020-05-17 14:48 | NUR ---
PER DR ETIENNE, PT CAN RETURN TO STANDARD ISOLATION AT THIS TIME.
[2020-05-17 15:29] VITALS: BP 144/80
--- NOTE | 2020-05-17 16:12 | Diagnostic Imaging Report ---
PROCEDURE: CT abdomen and pelvis without contrast. TECHNIQUE: Multiple contiguous axial images were obtained through the abdomen and pelvis without the use of intravenous contrast. Auto Exposure Controls were utilized during the CT exam to meet ALARA standards for radiation dose reduction. INDICATION: Abdominal pain. Patient does have history of diverticulitis. COMPARISON: No prior studies are available for comparison. FINDINGS: Imaging through the lung bases does show a very small left pleural effusion. There are some infiltrates or atelectasis in both bases, left greater. Liver and gallbladder are unremarkable. No biliary ductal dilatation is identified. Pancreas and spleen are unremarkable. No adrenal mass is detected. Kidneys are unremarkable. No calculus or hydronephrosis is identified. The small and large bowel loops are normal caliber. No obstruction is detected. There is diverticulosis of the descending and sigmoid colon, but no evidence of acute diverticulitis. No inflammatory changes are seen. There is no free fluid or fluid collection. Bladder and prostate are unremarkable. IMPRESSION: 1. Small left pleural effusion which appears to be new since yesterday. There is minimal infiltrate or atelectasis in both bases, left greater. 2. Uncomplicated diverticulosis. Dictated by: Dictated on workstation # [id number]
[2020-05-17] MEDS: metroNIDAZOLE 500MG/100ML IVPB 100 ML IV SCH (16:45)
[2020-05-17] MEDS ORDERED: REGADENOSON 0.4 MG/5 ML SYR (LEXISCAN) IV ONE (18:00)
--- NOTE | 2020-05-17 19:26 | Consultation-Cardiology ---
HPI-Cardiology Cardiology Consultation: Date of Consultation 05/17/20 Date of Admission Attending Physician Dave Tellez MD Admitting Physician No,Local Physician Consulting Physician Nino JOHNSON MD HPI: Time Seen by a Provider: 17:00 Chief Complaint: chest pain This is a 50-year-old male who presents with left-sided chest pain and worsening body aches. He also complains of left-sided abdominal pain. Denies any previous history of cardiac disease. He has history of cannabis use but denies any active smoking or current cannabis use. No significant family history. Mild to moderate chest pain with no significant radiation. No associated cardiac complaints. No exacerbating or relieving factors. Review of Systems-Cardiology Review of Systems Constitutional: As described under HPI; No As described under HPI, No no symptoms reported, No chills, No fever, No lightheadedness Eyes: No As described under HPI, No no symptoms reported, No blindness, No blurred vision, No contact lenses, No drainage, No decreased acuity, No foreign body sensation, No pain, No vision change Ears/Nose/Throat: No As described under HPI, No no symptoms reported, No chronic hearing loss, No ear discharge, No ear pain, No nasal drainage, No ulcerations Respiratory: No no symptoms reported; As described under HPI; No As described under HPI, No cough, No orthopnea, No shortness of breath, No SOB with excertion Cardiovascular: No no symptoms reported; As described under HPI; No As d escribed under HPI; chest pain; No edema, No irregular heart rate, No lightheadedness, No palpitations Gastrointestinal: No no symptoms reported, No As described under HPI, No abdomen distended; abdominal pain; No blood streaked bowels, No constipation, No diarrhea, No nausea, No vomiting, No stool coloration changes Genitourinary: No As described under HPI, No burning, No dysuria, No discharge, No frequency, No flank pain, No hematuria, No urgency Skin: No rash, No skin related problems, No ulcerations Psychiatric/Neurological: No anxiety, No depression, No seizure, No focal weakness, No syncope Hematologic: No bleeding abnormalities All Other Systems Reviewed Negative Unless Noted: Yes BML-Kxlrzj-Jdyrvg Hx Patient Social History Employed/Student: employed Alcohol Use: Occasionally Uses Recreational Drug Use: No Smoking Status: Current Everyday Smoker Type Used: Cigarettes Recent Foreign Travel: No Recent Infectious Disease Expo: No Hospitalization with Isolation: Denies Past Medical History PMH As described under Assessment. Allergies and Home Medications Allergies Coded Allergies: No Known Drug Allergies (Unverified , 04/08/15) Home Medications Ciprofloxacin HCl 500 Mg Tablet, 500 MG PO BID Prescribed by: DAVE TELLEZ on 05/18/20 1205 Metronidazole 500 Mg Tablet, 500 MG PO BID Prescribed by: DAVE TELLEZ on 05/18/20 1205 Patient Home Medication List Home Medication List Reviewed: Yes Physical Exam-Cardiology Physical Exam Vital Signs/I&O 05/18/20 05/18/20 05/18/20 05/18/20 03:02 03:09 07:48 08:00 Temp 36.7 36.7 Pulse 75 63 Resp 18 18 B/P (MAP) 150/85 (106) 136/92 (107) Pulse Ox 100 97 O2 Delivery Room Air Room Air Room Air Room Air 05/18/20 05/18/20 09:00 11:43 O2 Delivery Room Air Room Air 05/18/20 00:00 Intake Total 580 ml Balance 580 ml Capillary Refill : Less Than 3 Seconds Constitutional: appears stated age, AAO x 3; No apparent distress; well- developed, well-nourished HEENT: PERRL; No discharge; hearing is well preserved, oral hygience is good; No ulceration, No xanthelasmas are seen Neck: No carotid bruit; carotid pulses are 2 + bilaterally Respiratory: chest is bilaterally symmetric, lungs clear to auscultation Cardiovascular: regular rate-rhythm, S1 and S2; No diastolic murmur, No systolic murmur Gastrointestinal: soft, audible bowel sounds; No spleenomegaly Rectal: deferred Extremities: normal range of motion, non-tender, normal inspection; No clubbing, No cyanosis; no lower extremity edema bilateral; No significant edema Neurologic/Psychiatric: no motor/sensory deficits, alert, normal mood/affect, oriented x 3, power is 5/5 both on sides Skin: normal color, warm/dry; No rash, No ulcerations Data Review Labs Microbiology 05/16/20 Blood Culture - Preliminary, Resulted No growth ECG Impression ECG Initial ECG Rhythm: Normal Sinus Initial ECG Impression: Nonspecific Changes A/P-Cardiology Assessment/Admission Diagnosis Chest pain, Plan Chest pain, we will check serial troponin. EKG negative. If serial troponin are negative. Nuclear stress test will be recommended. Echocardiogram is recommended. Thank you for your consultation. Please call me if you have any questions. Donita Johnson MD, FACP, FACC, FSCAI, FHRS, CCDS Interventional Cardiology Cardiac Electrophysiology Vascular Medicine and Endovascular Interventions Clinical Quality Measures AMI/AHF: ASA po Prior to arrival: No DVT/VTE Risk/Contraindication: Risk Factor Score Per Nursin RFS Level Per Nursing on Admit: 2=Moderate Nino JOHNSON MD May 17, 2020 19:26
[2020-05-17 19:45] VITALS: BP 152/97
[2020-05-17 23:50] VITALS: BP 128/83
[2020-05-18] MEDS: LACTATED RINGERS 1,000 ML IV SCH ×3 (01:25→08:11)
[2020-05-18] MEDS: metroNIDAZOLE 500MG/100ML IVPB 100 ML IV SCH ×2 (01:26→08:11)
[2020-05-18 03:02] VITALS: BP 150/85
[2020-05-18] MEDS: KETOROLAC 30 MG/ML VIAL IVP PRN (03:06)
[2020-05-18] MEDS: ASPIRIN E.C. 81 MG (ECOTRIN) TAB PO SCH (07:42)
[2020-05-18 07:48] VITALS: BP 136/92
[2020-05-18] MEDS: CIPROFLOXACIN IV 400MG/200ML 200 ML IV SCH (08:11)
[2020-05-18] MEDS: PANTOPRAZOLE 40 MG (PROTONIX) VIAL IV SCH (08:11)
[2020-05-18] MEDS ORDERED: REGADENOSON 0.4 MG/5 ML SYR (LEXISCAN) IV ONE (09:07)
[2020-05-18] MEDS ORDERED: CIPR-225 PO (12:05)
[2020-05-18] MEDS ORDERED: METR500T PO (12:05)
--- NOTE | 2020-05-18 12:08 | Discharge Inst-Simple/Standard ---
Discharge Inst-Standard Discharge Medications New, Converted or Re-Newed RX: Transmitted to Pharmacy Patient Instructions/Follow Up Plan of Care/Instructions/FU: Please continue to take your medications as written. Please follow up with a primary care doctor within the next week to follow up this hospital stay. Activity as Tolerated: Yes Discharge Diet: No Restrictions Return to The Hospital For: Chest pain, shortness of breath, fever, abdominal pain, no BM or passing gas for >24 hours, if you feel you are getting worse. DAVE ETIENNE MD May 18, 2020 12:08
--- NOTE | 2020-05-18 12:16 | Discharge Summary ---
Diagnosis/Chief Complaint Date of Admission May 16, 2020 at 17:28 Date of Discharge Discharge Date: May 18, 2020 Admission Diagnosis LUQ Pain Primary Care No,Local Physician Discharge Summary Discharge Physical Exam Allergies: Coded Allergies: No Known Drug Allergies (Unverified , 04/08/15) Vitals & I&Os Vital Signs Date Time Temp Pulse Resp B/P (MAP) Pulse Ox O2 Delivery O2 Flow Rate FiO2 05/18/20 11:43 Room Air 05/18/20 07:48 36.7 63 18 136/92 (107) 97 General Appearance: No Apparent Distress, WD/WN Respiratory: Lungs Clear, No Respiratory Distress Cardiovascular: Regular Rate, Rhythm, No Murmur Hospital Course Pt was admitted to the hospital due to Chest pain. He had serial negative troponins and a negative stress test. He clarified his pain to me as more abdominal that radiated up to his chest and felt similar to his previous episodes of diverticulitis. CT was done which only revealed diverticulosis. He was started on Cipro and Flagyl prior to the CT though and his symptoms improved drastically. Due to his clinical condition I continued him on treatment for diverticulitis. He was discharged home at his request in stable condition to follow up with a primary care doctor within the next two weeks. Labs (last 24 hrs) Microbiology 05/16/20 Blood Culture - Preliminary, Resulted No growth Patient resulted labs reviewed. Imaging: Reviewed Imaging Report Discussion & Recommendations Discharge Planning: >30 minutes discharge planning Discharge Home Medications: Active Scripts Active Flagyl (Metronidazole) 500 Mg Tablet 500 Mg PO BID Cipro (Ciprofloxacin HCl) 500 Mg Tablet 500 Mg PO BID Instructions to patient/family Please see electronic discharge instructions given to patient. Clinical Quality Measures AMI/AHF: ASA po Prior to arrival: No DVT/VTE Risk/Contraindication: Risk Factor Score Per Nursin RFS Level Per Nursing on Admit: 2=Moderate DAVE ETIENNE MD May 18, 2020 12:16
--- NOTE | 2020-05-18 13:23 | Cardiology Progress Note ---
Cardiology SOAP Progress Note Subjective: No further chest pain. Objective: I&O/Vital Signs 05/18/20 05/18/20 05/18/20 05/18/20 03:02 03:09 07:48 08:00 Temp 36.7 36.7 Pulse 75 63 Resp 18 18 B/P (MAP) 150/85 (106) 136/92 (107) Pulse Ox 100 97 O2 Delivery Room Air Room Air Room Air Room Air 05/18/20 05/18/20 09:00 11:43 O2 Delivery Room Air Room Air 05/18/20 00:00 Intake Total 580 ml Balance 580 ml Weight (Pounds): 189 Weight (Calculated Kilograms): 85.002648 Constitutional: appears stated age, AAO x 3; No apparent distress; well- developed, well-nourished Respiratory: chest is bilaterally symmetric, lungs clear to auscultation Cardiovascular: regular rate-rhythm, S1 and S2; No diastolic murmur, No systolic murmur Gastrointestional: soft, audible bowel sounds; No spleenomegaly Extremities: normal range of motion, non-tender, normal inspection; No clubbing, No cyanosis; no lower extremity edema bilateral; No significant edema Neurologic/Psychiatric: no motor/sensory deficits, alert, normal mood/affect, oriented x 3, power is 5/5 both on sides Skin: normal color, warm/dry; No rash, No ulcerations Results/Procedures: Labs Microbiology 05/16/20 Blood Culture - Preliminary, Resulted No growth A/P: Assessment/Dx: Chest pain, Plan: Negative serial troponin. Acute coronary syndrome has been ruled out. EKG did not reveal any acute ST-T wave abnormalities. Nuclear stress test done today does not show any evidence of ischemia or infarct. Echocardiogram showed normal LV function with no wall motion abnormalities. Patient can be discharged to follow-up with primary care physician. Thank you for your consultation. Please call me if you have any questions. Donita Johnson MD, FACP, FACC, FSCAI, FHRS, CCDS Interventional Cardiology Cardiac Electrophysiology Vascular Medicine and Endovascular Interventions Clinical Quality Measures AMI/AHF: ASA po Prior to arrival: Nino Blanchard MD May 18, 2020 13:23
--- NOTE | 2020-05-18 14:48 | Cardiology Stress Test Report ---
Stress Test Report Type of NM Stress Test: Test Type: LEXISCAN 0.4MG/5ML Date of Procedure/Referring: Date of Procedure: May 18, 2020 PCP Caprice Tellez MD Admitting Physician No,Local Physician Indications: Chest pain Baseline Heart Rate: 63 Baseline Blood Pressure: Blood Pressure Systolic: 136 Blood Pressure Diastolic: 92 Baseline EKG: Baseline EKG: sinus rhythm Summary & Conclusion: Summary: The patient was brought to the stress lab after informed consent was taken. Str ess test was performed according to the Lexiscan protocol. 0.4 mg of IV Lexiscan was given. Low-grade exercise was performed. Baseline EKG showed sinus rhythm at 63 bpm, blood pressure 145/86 mmHg. Maximum heart rate of 86 bpm and blood pressure 141/91 mmHg. Patient did not have any chest pain, arrhythmias or ST segment changes during the stress test. 9.71 mCi of Myoview were given for rest imaging and 31.8 mCi of Myoview given for stress imaging. Transient ischemic dilatation score , EF percent. Normal wall motion. Normal myocardial perfusion imaging during rest and stress. Conclusion: Pharmacological stress test was negative for ischemia. Normal LV function with no wall motion abnormalities. Normal myocardial perfusion imaging during rest and stress. Nino SINGH MD May 18, 2020 14:48
== END 2020-05-18 12:07 | disposition home or self-care (01) ==
LOC: EDUNIT# 12:02 → ER 12:05 → CSD 13:45 → UNDOADMOB 13:45 → CSD 17:00 → UNDOADMOB 17:28 → CSD 17:28 → UNDODISOB 05-18 12:22
PROVIDERS: ADMIT Family Medicine; ATTEND Family Medicine
DX: I24.9 Acute ischemic heart disease, unspecified (principal); T67.5XXA Heat exhaustion, unspecified, initial encounter; F17.210 Nicotine dependence, cigarettes, uncomplicated; R10.11 Right upper quadrant pain; I07.1 Rheumatic tricuspid insufficiency; Z20.828 Contact with and (suspected) exposure to other viral communicable diseases; Z79.899 Other long term (current) drug therapy
CPT/HCPCS: 71045; 71275; 74176; 78452; 80048; 80053; 80061; 82550; 83615; 83735; 83874; 83880; 84145; 84484 ×2; 85025 ×2; 85379; 85610; 85730; 86141; 87040; 93005 ×3; 93017; 93041; 93306; 96361; 96374; 99284; A9502; G0378; U0002; 36415; 87635

== ENCOUNTER 2022-05-30 20:49 | Observation (INO) | payer SELFPAY ==
[~2022-05-30] VITALS: Ht 177.8 cm; Wt 85.5 kg
[~2022-05-30 20:49] MED LIST: CIPR-225 PO; METR500T PO
--- NOTE | 2022-05-30 21:23 | ED Upper Extremity ---
General Chief Complaint: Upper Extremity Stated Complaint: ARM INJURY Source: patient History of Present Illness Date Seen by Provider: May 30, 2022 Time Seen by Provider: 21:13 Initial Comments PT ARRIVES VIA POV FROM HOME C/O INJURY TO RIGHT FOREARM STATES AROUND 1930 LAST NIGHT, HE WAS LOADING A METAL BASKET/GROCERY-TYPE CART ONTO A TRUCK AND A PIECE OF METAL FROM THE BASKET STUCK IN HIS DISTAL RIGHT FOREARM/DORSAL ASPECT--PUNCTURE WOUND C/O INCREASED PAIN AND REDNESS TO ENTIRE RIGHT HAND AND FOREARM TODAY NO FEVER NO PARESTHESIAS OR MOTOR DEFICITS PT IS RIGHT HANDED NO PRIOR INJURY TO THIS ARM DOES NOT TAKE ANY MEDICATIONS, AND HAS NOT TAKEN ANYTHING FOR PAIN LAST TETANUS IS UNKNOWN. PCP: NONE--WENT TO [facility] YEARS AGO--BUT STATES HE NEVER GOES TO THE . Allergies and Home Medications Allergies Coded Allergies: No Known Drug Allergies (Unverified , 04/08/15) Patient Home Medication List Home Medication List Reviewed: No (PT DOES NOT TAKE ANY MEDICATIONS) Ciprofloxacin HCl (Cipro) 500 Mg Tablet, 500 MG PO BID Prescribed by: DAVE ETIENNE on 05/18/20 1205 Metronidazole (Flagyl) 500 Mg Tablet, 500 MG PO BID Prescribed by: DAVE ETIENNE on 05/18/20 1205 Review of Systems Constitutional: no symptoms reported Musculoskeletal: see HPI Skin: see HPI Psychiatric/Neurological: No Symptoms Reported Past Vsvucvw-Ffoxxd-Ylqpxl Hx Patient Social History Tobacco Use?: Yes Tobacco type used: Cigarettes Smoking Status: Current Everyday Smoker Substance use?: No (DENIES USE) Alcohol Use?: Yes Alcohol Frequency: Once in a while Immunizations Up To Date Tetanus Booster (TDap): Unknown Past Medical History Surgeries: Yes (C-SPINE SURGERY WITH HARDWARE; HIATAL HERNIA REPAIR) Abdominal, Orthopedic Respiratory: No Cardiac: No Neurological: No Genitourinary: No Gastrointestinal: Yes (HIATAL HERNIA REPAIR) Gastroesophageal Reflux, Diverticulosis, Hiatal Hernia Musculoskeletal: Yes (CHRONIC NECK PAIN ) Degenerate Disk Disease Endocrine: No HEENT: No Cancer: No Psychosocial: No Integumentary: No Blood Disorders: No Physical Exam Vital Signs Vital Signs - First Documented 05/30/22 05/30/22 21:10 23:14 Temp 36.8 Pulse 86 Resp 16 B/P (MAP) 149/90 (109) Pulse Ox 99 O2 Delivery Room Air Capillary Refill : Height, Weight, BMI Height: 0'67.00" Weight: 189lbs. oz. 85.100462dm; 28.00 BMI Method: General Appearance: WD/WN, no apparent distress, other (FILTHY, MALODOROUS) Neck: non-tender Cardiovascular: normal peripheral pulses, regular rate, rhythm Respiratory: normal breath sounds Shoulder: normal inspection Elbow/Forearm: Right (SCABBED PUNCTURE SITE TO DORSAL ASPECT OF RIGHT FOREARM, NEAR WRIST. HAS OTHER SUPERFICIAL SCABBED ABRASIONS TO RIGHT ARM AND HAND. HAS MODERATE SWELLING AND MILD ERYTHEMA FROM MID FOREARM DOWN TO HAND AND ALL FINGERS. DISTAL SENSORY/VASCULAR INTACT. ROM OF FINGERS IS LIMITED IN ALL DIRECTIONS DUE TO PAIN . NO FLUCTUANCE. NO DRAINAGE. NO STREAKS. ), limited ROM, pain, soft tissue tenderness, swelling Wrist: Yes limited ROM, Yes pain, Yes soft tissue tenderness, Yes swelling Hand: limited ROM, soft tissue tenderness, swelling Neurologic/Psychiatric: prosthetic dentist II-XII nml as tested, alert, normal mood/affect, oriented x 3 Skin: normal color, warm/dry, other ( ABOVE) Progress/Results/Core Measures Results/Orders Lab Results Laboratory Tests Test 05/30/22 21:55 Range/Units White Blood Count 8.9 4.3-11.0 10^3/uL Red Blood Count 4.59 4.30-5.52 10^6/uL Hemoglobin 13.8 13.3-17.7 g/dL Hematocrit 40 40-54 % Mean Corpuscular Volume 88 80-99 fL Mean Corpuscular Hemoglobin 30 25-34 pg Mean Corpuscular Hemoglobin Concent 34 32-36 g/dL Red Cell Distribution Width 13.1 10.0-14.5 % Platelet Count 295 130-400 10^3/uL Mean Platelet Volume 10.0 9.0-12.2 fL Immature Granulocyte % (Auto) 0 % Neutrophils (%) (Auto) 57 42-75 % Lymphocytes (%) (Auto) 30 12-44 % Monocytes (%) (Auto) 8 0-12 % Eosinophils (%) (Auto) 4 0-10 % Basophils (%) (Auto) 1 0-10 % Neutrophils # (Auto) 5.1 1.8-7.8 10^3/uL Lymphocytes # (Auto) 2.7 1.0-4.0 10^3/uL Monocytes # (Auto) 0.7 0.0-1.0 10^3/uL Eosinophils # (Auto) 0.3 0.0-0.3 10^3/uL Basophils # (Auto) 0.1 0.0-0.1 10^3/uL Immature Granulocyte # (Auto) 0.0 0.0-0.1 10^3/uL Erythrocyte Sedimentation Rate 12 0-30 MM/HR Sodium Level 139 135-145 MMOL/L Potassium Level 3.8 3.6-5.0 MMOL/L Chloride Level 106 98-107 MMOL/L Carbon Dioxide Level 22 21-32 MMOL/L Anion Gap 11 5-14 MMOL/L Blood Urea Nitrogen 19 H 7-18 MG/DL Creatinine 0.96 0.60-1.30 MG/DL Estimat Glomerular Filtration Rate 94 BUN/Creatinine Ratio 20 Glucose Level 102 70-105 MG/DL Lactic Acid Level 1.31 0.50-2.00 MMOL/L Calcium Level 8.5 8.5-10.1 MG/DL Corrected Calcium 8.5 8.5-10.1 MG/DL Total Bilirubin 0.4 0.1-1.0 MG/DL Aspartate Amino Transf (AST/SGOT) 13 5-34 U/L Alanine Aminotransferase (ALT/SGPT) 21 0-55 U/L Alkaline Phosphatase 92 40-136 U/L C-Reactive Protein High Sensitivity 1.56 H 0.00-0.50 MG/DL Total Protein 6.9 6.4-8.2 GM/DL Albumin 4.0 3.2-4.5 GM/DL Procalcitonin 0.04 <0.10 NG/ML My Orders Orders - PRINCE KOLB DO Ed Iv/Invasive Line Start (05/30/22 21:17) Forearm, Right, 2 Views (05/30/22 21:17) Cbc With Automated Diff (05/30/22 21:17) Comprehensive Metabolic Panel (05/30/22 21:17) Hs C Reactive Protein (05/30/22 21:17) Lactic Acid Analyzer (05/30/22 21:17) Procalcitonin (Pct) (05/30/22 21:17) Blood Culture (05/30/22 21:17) Erythrocyte Sedimentation Rate (05/30/22 21:17) Dipht,Pertuss(Acell),Tet Adult (Boostrix (05/30/22 21:30) Clindamycin 900 Mg/50 Ml Ivpb (Cleocin P (05/30/22 21:30) Medications Given in ED Current Medications Medications Dose Ordered Sig/Fidencio Route Start Time Stop Time Status Last Admin Dose Admin Clindamycin Phosphate/Dextrose 50 ml @ 100 mls/hr ONCE ONCE IV 05/30/22 21:30 05/30/22 21:59 DC 05/30/22 21:53 100 MLS/HR Diphtheria/ Tetanus/Acell Pertussis 0.5 ml ONCE ONCE IM 05/30/22 21:30 05/30/22 21:31 DC 05/30/22 21:55 0.5 ML Vital Signs/I&O 05/30/22 05/30/22 21:10 23:14 Temp 36.8 36.8 Pulse 86 82 Resp 16 16 B/P (MAP) 149/90 (109) 147/91 Pulse Ox 99 100 O2 Delivery Room Air Progress Progress Note : Progress Note SEPSIS PROTOCOL INITIATED--PT DOES NOT MEET CRITERIA FOR SEPSIS--NO FEVER, NORMAL WBC, NORMAL VITALS GIVEN IV FLUIDS, ANTIBIOTICS, LACTIC ACID LEVEL DONE, FOCUS EXAM DONE AT 2215 PT SLEPT FOR ENTIRE ER STAY NO DETERIORATION IN PT'S CONDITION DURING ER STAY Diagnostic Imaging Comments XRAYS--PER RADIOLOGIST REPORT AT 4 RIGHT FOREARM--FINDINGS: No fracture or acute bony abnormality is seen. There are degenerative changes of the right wrist and right elbow. IMPRESSION: No acute bony abnormality in the right forearm. Reviewed: Reviewed by Me Departure Communication (Admissions) 2224--SPOKE WITH DR. BROOKS, HOSPITALIST, ACCEPTS PT FOR ADMIT Impression Primary Impression: PUNCTURE WOUND RIGHT FOREARM WITH CELLULITIS Additional Impression: Exurkwdfek-gbwpizgww-fmtepmy (DPT) vaccination administered at current visit Disposition: ADMITTED INPATIENT Condition: Stable Admissions Decision to Admit Reason: Admit from ER (General) Decision to Admit/Date: May 30, 2022 Time/Decision to Admit Time: 22:25 Departure-Patient Inst. Referrals: NO,LOCAL PHYSICIAN (PCP/Family) Primary Care Physician PRINCE KOLB DO May 30, 2022 21:23
[2022-05-30] MEDS ORDERED: TETANUS,DIPTH,PERTUSS P/F (BOOSTRIX) 0.5 ML VIAL IM ONE (21:30)
[2022-05-30] MEDS ORDERED: CLINDAMYCIN 900 MG/50 ML IVPB 50 ML IV ONE (21:30)
[2022-05-30 22:06] LABS: BASOPHILS # (AUTO) 0.1 10^3/uL (0.0-0.1); BASOPHILS % (AUTO) 1 % (0-10); EOSINOPHILS # (AUTO) 0.3 10^3/uL (0.0-0.3); EOSINOPHILS % (AUTO) 4 % (0-10); HEMATOCRIT 40 % (40-54); HEMOGLOBIN 13.8 g/dL (13.3-17.7); LYMPHOCYTES # (AUTO) 2.7 10^3/uL (1.0-4.0); LYMPHOCYTES % (AUTO) 30 % (12-44); MEAN CORPUSCULAR HEMOGLOBIN 30 pg (25-34); MEAN CORPUSCULAR HGB CONC 34 g/dL (32-36); MEAN CORPUSCULAR VOLUME 88 fL (80-99); MONOCYTES # (AUTO) 0.7 10^3/uL (0.0-1.0); MONOCYTES % (AUTO) 8 % (0-12); NEUTROPHILS # (AUTO) 5.1 10^3/uL (1.8-7.8); NEUTROPHILS % (AUTO) 57 % (42-75); PLATELET COUNT 295 10^3/uL (130-400); WHITE BLOOD COUNT 8.9 10^3/uL (4.3-11.0)
--- NOTE | 2022-05-30 22:12 | Diagnostic Imaging Report ---
INDICATION: Right forearm pain. EXAMINATION: AP and lateral views of the right forearm were obtained. FINDINGS: No fracture or acute bony abnormality is seen. There are degenerative changes of the right wrist and right elbow. IMPRESSION: No acute bony abnormality in the right forearm. Dictated by: Dictated on workstation # [id number]
[2022-05-30 22:15] LABS: POTASSIUM 3.8 MMOL/L (3.6-5.0)
[2022-05-30 22:17] LABS: CALCIUM 8.5 MG/DL (8.5-10.1)
[2022-05-30 22:18] LABS: TOTAL PROTEIN 6.9 GM/DL (6.4-8.2)
[2022-05-30 22:20] LABS: BILIRUBIN,TOTAL 0.4 MG/DL (0.1-1.0); ERYTHROCYTE SEDIMENTATION RATE 12 MM/HR (0-30)
[2022-05-30 22:22] LABS: CREATININE SERUM 0.96 MG/DL (0.60-1.30)
[2022-05-30] MEDS ORDERED: ONDANSETRON 4 MG/2 ML (SDV) Z0FRAN IV PRN (23:45)
[2022-05-30] MEDS: ceFAZolin 2 GM/50 ML (PRE-MIXED) IV SCH (23:57)
[2022-05-30] MEDS: LACTATED RINGERS 1,000 ML IV SCH (23:57)
[2022-05-30] MEDS: KETOROLAC 30 MG/ML VIAL IV PRN (23:59)
[2022-05-31] VITALS: BP 137/82
[2022-05-31] MEDS ORDERED: VANCOMYCIN 1 GM/NS 250 ML IVPB IV ONE ×2
[2022-05-31] MEDS ORDERED: VANCOMYCIN 750 MG/NS 250 ML IVPB IV ONE ×2 (01:00)
[2022-05-31 03:06] VITALS: BP 132/82
[2022-05-31 06:02] LABS: BASOPHILS # (AUTO) 0.1 10^3/uL (0.0-0.1); BASOPHILS % (AUTO) 1 % (0-10); EOSINOPHILS # (AUTO) 0.3 10^3/uL (0.0-0.3); EOSINOPHILS % (AUTO) 4 % (0-10); HEMATOCRIT 41 % (40-54); HEMOGLOBIN 13.5 g/dL (13.3-17.7); LYMPHOCYTES # (AUTO) 2.2 10^3/uL (1.0-4.0); LYMPHOCYTES % (AUTO) 35 % (12-44); MEAN CORPUSCULAR HEMOGLOBIN 29 pg (25-34); MEAN CORPUSCULAR HGB CONC 33 g/dL (32-36); MEAN CORPUSCULAR VOLUME 89 fL (80-99); MEAN PLATELET VOLUME 10.4 fL (9.0-12.2); MONOCYTES # (AUTO) 0.6 10^3/uL (0.0-1.0); MONOCYTES % (AUTO) 9 % (0-12); NEUTROPHILS # (AUTO) 3.3 10^3/uL (1.8-7.8); NEUTROPHILS % (AUTO) 51 % (42-75); PLATELET COUNT 259 10^3/uL (130-400); WHITE BLOOD COUNT 6.4 10^3/uL (4.3-11.0)
[2022-05-31] MEDS: LACTATED RINGERS 1,000 ML IV SCH (06:18)
[2022-05-31 06:23] LABS: ALBUMIN 3.5 GM/DL (3.2-4.5); POTASSIUM 3.6 MMOL/L (3.6-5.0)
[2022-05-31 06:24] LABS: CALCIUM 8.2 MG/DL (8.5-10.1)
[2022-05-31 06:25] LABS: TOTAL PROTEIN 6.1 GM/DL (6.4-8.2)
[2022-05-31 06:27] LABS: BILIRUBIN,TOTAL 0.5 MG/DL (0.1-1.0)
[2022-05-31 06:29] LABS: CREATININE SERUM 0.91 MG/DL (0.60-1.30)
[2022-05-31] MEDS: KETOROLAC 30 MG/ML VIAL IV PRN (06:46)
[2022-05-31 07:31] VITALS: BP 148/88
[2022-05-31] MEDS: ceFAZolin 2 GM/50 ML (PRE-MIXED) IV SCH (08:40)
[2022-05-31 11:23] VITALS: BP 160/91
--- NOTE | 2022-05-31 11:56 | History & Physical-Hospitalist ---
History of Present Illness HPI/Chief Complaint Patient is a 51-year-old male with no past significant medical history who presents to the hospital due to puncture injury to hand. He reports he was working on a truck when he punctured his hand with a tool. He had swelling and pain so decided to seek evaluation in the emergency department. They were conc erned for cellulitis and admitted him for IV antibiotics. This morning he reports feeling better but is still swollen and he has difficulty with range of motion. He has no other complaints. Source: patient Date Seen 05/31/22 Time Seen by a Provider: 09:30 Attending Physician No,Local Physician PCP Admitting Physician: Maurizio Harris MD Attending Physician: Jhonatan Marshall DO Referring Physician Date of Admission May 30, 2022 at 22:25 Home Medications & Allergies Home Medications Reviewed patient Home Medication Reconciliation performed by pharmacy medication reconciliations pharmaceutical development technician and/or nursing. Patients Allergies have been reviewed. Allergies Allergies Coded Allergies No Known Drug Allergies (Unverified04/08/15) Past Wervxsu-Pblpte-Gajzdz Hx Patient Social History Marrital Status: Employed/Student: employed Tobacco Use?: Yes Tobacco type used: Cigarettes Smokeless type used: Chew Smokeless Tobacco Frequency: Current Everyday User Use of E-Cig and/or Vaping dev: No Substance use?: No Alcohol Use?: Yes Alcohol type: Beer, Hard Liquor Alcohol Frequency: Couple times a week Pt feels they are or have been: No Immunizations Up To Date Tetanus Booster (TDap): Unknown Hepatitis A: No Hepatitis B: No Current Status Advance Directives: No Communicates: Verbally Primary Language: Ghanaian Preferred Spoken Language: Ghanaian Is interpretation needed?: No Implanted or Applied Medical D: None Past Medical History Surgeries: Abdominal, Orthopedic Gastroesophageal Reflux, Diverticulosis, Hiatal Hernia Degenerate Disk Disease Blood Disorders: No Family Medical History Reviewed Nursing Family Hx Heart Disease Review of Systems Constitutional: No chills, No fever EENTM: no symptoms reported Respiratory: no symptoms reported Cardiovascular: no symptoms reported Gastrointestinal: no symptoms reported Musculoskeletal: no symptoms reported Skin: see HPI Psychiatric/Neurological: No Symptoms Reported Physical Exam Physical Exam Vital Signs Vital Signs - First Documented 05/30/22 05/30/22 05/31/22 21:10 23:14 08:00 Temp 36.8 Pulse 86 Resp 16 B/P (MAP) 149/90 (109) Pulse Ox 99 O2 Delivery Room Air O2 Flow Rate 99.00 Capillary Refill : Less Than 3 Seconds Height, Weight, BMI Height: 0'67.00" Weight: 189lbs. oz. 85.844036yg; 27.04 BMI Method: General Appearance: No Apparent Distress, WD/WN HEENT: PERRL/EOMI, Moist Mucous Membranes; No Scleral Icterus (L), No Scleral Icterus (R) Neck: Normal Inspection, Supple Respiratory: Lungs Clear, No Accessory Muscle Use, No Respiratory Distress Cardiovascular: Regular Rate, Rhythm, No JVD, No Murmur Gastrointestinal: Normal Bowel Sounds, Non Tender, Soft; No Distended, No Guarding Extremity: Normal Capillary Refill, No Calf Tenderness, No Pedal Edema, Other (right posterior forearm with apparent puncture wound and surrounding edema, no erythema noted, radial pulse 2+) Neurologic/Psychiatric: Alert, Oriented x3, Normal Mood/Affect Results Results/Procedures Labs Laboratory Tests 05/30/22 21:55 05/31/22 05:02 Patient resulted labs reviewed. Imaging: Reviewed Imaging Report [facility] [place], [place] NAME: TOM LLAMAS [facility] REC#: [id number] PT STATUS: REG ER : 1970 PHYSICIAN: PRINCE KOLB DO ADMIT DATE: 05/30/22/ER Signed Date of Exam:05/30/22 FOREARM, RIGHT, 2 VIEWS INDICATION: Right forearm pain. EXAMINATION: AP and lateral views of the right forearm were obtained. FINDINGS: No fracture or acute bony abnormality is seen. There are degenerative changes of the right wrist and right elbow. IMPRESSION: No acute bony abnormality in the right forearm. Dictated by: Dictated on workstation # [id number] Dict: 05/30/229 Trans: 05/30/222247 [facility] [id number] Interpreted by: ROXY CISNEROS MD Electronically signed by: ROXY CISNEROS MD 05/30/222247 Assessment/Plan Admission Diagnosis Cellulitis Admission Status: Observation Assessment and Plan Cellulitis Puncture wound Continue on IV abx Surgery consulted, appreciate recs No evidence of sepsis Given location will complete IV abx for 24 hours and DC home tomorrow Discussed with Dr Marshall who is agreeable with plan Received TDAP in ER Diagnosis/Problems Diagnosis/Problems (1) Cellulitis of hand DAVE ETIENNE MD May 31, 2022 11:56
[2022-05-31] MEDS ORDERED: SULF-221 PO (12:30)
[2022-05-31] MEDS ORDERED: CEPH500T PO (12:30)
--- NOTE | 2022-05-31 12:41 | Consultation - Surgery ---
History of Present Illness History of Present Illness Patient Consulted On(dhaval/time) 05/31/22 12:34 Time Seen by Provider: 11:01 History of Present Illness Surgery asked to consult regarding right arm cellulitis. HPI per ED: PT ARRIVES VIA POV FROM HOME, C/O INJURY TO RIGHT FOREARM, STATES AROUND 1930 LAST NIGHT, HE WAS LOADING A METAL BASKET/GROCERY-TYPE CART ONTO A TRUCK AND A PIECE OF METAL FROM THE BASKET STUCK IN HIS DISTAL RIGHT FOREARM/DORSAL ASPECT--PUNCTURE WOUND, C/O INCREASED PAIN AND REDNESS TO ENTIRE RIGHT HAND AND FOREARM TODAY, NO FEVER, NO PARESTHESIAS OR MOTOR DEFICITS, PT IS RIGHT HANDED, NO PRIOR INJURY TO THIS ARM DOES NOT TAKE ANY MEDICATIONS, AND HAS NOT TAKEN ANYTHING FOR PAIN, LAST TETANUS IS UNKNOWN. PCP: NONE--WENT TO [facility] YEARS AGO--BUT STATES HE NEVER GOES TO THE DR. When I saw the pt this am he was walking around with NAD. Stated he thinks his arm is better, but [employer] and it is hard to make a fist. Rating the pain as 4 out of 10. Constant dull pain, nothing seeming to help it. Allergies and Home Medications Allergies Coded Allergies: No Known Drug Allergies (Unverified , 04/08/15) Patient Home Medication List Home Medication List Reviewed: Yes Cephalexin (Cephalexin) 500 Mg Tablet, 500 MG PO BID Prescribed by: DAVE ETIENNE on 05/31/22 1230 Sulfamethoxazole/Trimethoprim (Bactrim Ds Tablet) 800 Mg-160 Mg Tablet, 1 EACH PO BID Prescribed by: DAVE ETIENNE on 05/31/22 1230 Discontinued Medications Ciprofloxacin HCl (Cipro) 500 Mg Tablet, 500 MG PO BID Discontinued Reason: No Longer Taking Prescribed by: DAVE ETIENNE on 05/18/20 1205 Last Action: Discontinued Metronidazole (Flagyl) 500 Mg Tablet, 500 MG PO BID Discontinued Reason: No Longer Taking Prescribed by: DAVE ETIENNE on 05/18/20 1205 Last Action: Discontinued Past Uxbxgto-Cgqjgf-Fdtmms Hx Patient Social History Type Used: Cigarettes Alcohol Use?: Yes Have you traveled recently?: No Immunizations Up To Date Tetanus Booster (TDap): Unknown Surgeries History of Surgeries: Yes (C-SPINE SURGERY WITH HARDWARE; HIATAL HERNIA REPAIR) Surgeries: Abdominal, Orthopedic Respiratory History of Respiratory Disorde: No Cardiovascular History of Cardiac Disorders: No Neurological History of Neurological Disord: No Genitourinary History of Genitourinary Disor: No Gastrointestinal History of Gastrointestinal Di: Yes (HIATAL HERNIA REPAIR) Gastrointestinal Disorders: Gastroesophageal Reflux, Diverticulosis, Hiatal Hernia Musculoskeletal History of Musculoskeletal Dis: Yes (CHRONIC NECK PAIN ) Musculoskeletal Disorders: Degenerate Disk Disease Endocrine History of Endocrine Disorders: No HEENT History of HEENT Disorders: No Cancer History of Cancer: No Psychosocial History of Psychiatric Problem: No Integumentary History of Skin or Integumenta: No Blood Transfusions History of Blood Disorders: No Family Medical History Significant Family History: Heart Disease Review of Systems-General Constitutional: No chills, No diaphoresis; malaise EENTM: No blurred vision, No double vision, No epistaxis, No throat swelling Respiratory: No cough, No dyspnea on exertion Cardiovascular: No chest pain, No palpitations Gastrointestinal: No abdominal pain, No nausea, No vomiting Genitourinary: No dysuria, No frequency, No hematuria Musculoskeletal: joint pain, joint swelling, muscle pain, muscle stiffness Skin: change in color; No change in hair/nails Psychiatric/Neurological: Denies Anxiety, Denies Depressed, Denies Seizure Physical Exam-General Problems Physical Exam Vital Signs Vital Signs - First Documented 05/30/22 05/30/22 05/31/22 21:10 23:14 08:00 Temp 36.8 Pulse 86 Resp 16 B/P (MAP) 149/90 (109) Pulse Ox 99 O2 Delivery Room Air O2 Flow Rate 99.00 Capillary Refill : Less Than 3 Seconds General Appearance: WD/WN, mild distress Eyes: Bilateral Eye PERRL, Bilateral Eye EOMI Respiratory: lungs clear, normal breath sounds, no respiratory distress, no accessory muscle use Cardiovascular: regular rate, rhythm, no murmur Gastrointestinal: non tender, soft, no organomegaly Extremities: no pedal edema, swelling (right arm, but I don't see any erythema) Neurologic/Psychiatric: alert, oriented x 3 Data Review Labs Laboratory Tests 05/30/22 21:55: White Blood Count 8.9, Red Blood Count 4.59, Hemoglobin 13.8, Hematocrit 40, Mean Corpuscular Volume 88, Mean Corpuscular Hemoglobin 30, Mean Corpuscular Hemoglobin Concent 34, Red Cell Distribution Width 13.1, Platelet Count 295, Mean Platelet Volume 10.0, Immature Granulocyte % (Auto) 0, Neutrophils (%) (Auto) 57, Lymphocytes (%) (Auto) 30, Monocytes (%) (Auto) 8, Eosinophils (%) (Auto) 4, Basophils (%) (Auto) 1, Neutrophils # (Auto) 5.1, Lymphocytes # (Auto) 2.7, Monocytes # (Auto) 0.7, Eosinophils # (Auto) 0.3, Basophils # (Auto) 0.1, Immature Granulocyte # (Auto) 0.0, Erythrocyte Sedimentation Rate 12, Sodium Level 139, Potassium Level 3.8, Chloride Level 106, Carbon Dioxide Level 22, Anion Gap 11, Blood Urea Nitrogen 19H, Creatinine 0.96, Estimat Glomerular Filtration Rate 94, BUN/Creatinine Ratio 20, Glucose Level 102, Lactic Acid Level 1.31, Calcium Level 8.5, Corrected Calcium 8.5, Total Bilirubin 0.4, Aspartate Amino Transf (AST/SGOT) 13, Alanine Aminotransferase (ALT/SGPT) 21, Alkaline Phosphatase 92, C-Reactive Protein High Sensitivity 1.56H, Total Protein 6.9, Albumin 4.0, Procalcitonin 0.04 05/31/22 05:02: White Blood Count 6.4, Red Blood Count 4.59, Hemoglobin 13.5, Hematocrit 41, Mean Corpuscular Volume 89, Mean Corpuscular Hemoglobin 29, Mean Corpuscular Hemoglobin Concent 33, Red Cell Distribution Width 13.1, Platelet Count 259, Mean Platelet Volume 10.4, Immature Granulocyte % (Auto) 0, Neutrophils (%) (Auto) 51, Lymphocytes (%) (Auto) 35, Monocytes (%) (Auto) 9, Eosinophils (%) (Auto) 4, Basophils (%) (Auto) 1, Neutrophils # (Auto) 3.3, Lymphocytes # (Auto) 2.2, Monocytes # (Auto) 0.6, Eosinophils # (Auto) 0.3, Basophils # (Auto) 0.1, Immature Granulocyte # (Auto) 0.0, Sodium Level 138, Potassium Level 3.6, Chloride Level 108H, Carbon Dioxide Level 21, Anion Gap 9, Blood Urea Nitrogen 22H, Creatinine 0.91, Estimat Glomerular Filtration Rate 100, BUN/Creatinine Ratio 24, Glucose Level 92, Calcium Level 8.2L, Corrected Calcium 8.6, Total Bilirubin 0.5, Aspartate Amino Transf (AST/SGOT) 12, Alanine Aminotransferase (ALT/SGPT) 19, Alkaline Phosphatase 80, Total Protein 6.1L, Albumin 3.5 Radiology Date of Exam:05/30/22 FOREARM, RIGHT, 2 VIEWS INDICATION: Right forearm pain. EXAMINATION: AP and lateral views of the right forearm were obtained. FINDINGS: No fracture or acute bony abnormality is seen. There are degenerative changes of the right wrist and right elbow. IMPRESSION: No acute bony abnormality in the right forearm. Dictated by: Dictated on workstation # [id number] Dict: 05/30/229 Trans: 05/30/228 [facility] [id number] Interpreted by: ROXY CISNEROS MD Electronically signed by: ROXY CISNEROS MD 05/30/22 2248 Assessment/Plan Assessment/Plan Assessment/Plan Right arm Cellulitis Contracted Right hand with decreased range of motion Pt has normal WBC and I don't see any erythema, he does have some edema. I see the line they elisha on his arm, but no redness. No signs or reasons for surgical intervention at this time. Would recommend ABX, elevation and pain control. I will follow along in case anything changes. KATELYNN ROBLERO DO May 31, 2022 12:41
[2022-05-31] MEDS ORDERED: VANCOMYCIN 1250 MG/NS 250 ML IVPB IV SCH ×2 (13:00)
[2022-05-31 13:12] VITALS: BP 160/91
[2022-06-01] MEDS ORDERED: TROUGH ORDER-PHARMACY XX ONE (12:00)
== END 2022-05-31 13:17 | disposition left against medical advice (07) ==
LOC: EDUNIT# 20:49 → ER 20:51 → 4TH 22:25 → UNDOADMIN 22:25 → 4TH 23:20 → UNDODISIN 05-31 13:17
PROVIDERS: ADMIT Internal Medicine; ATTEND Internal Medicine
DX: L03.113 Cellulitis of right upper limb (principal); F17.210 Nicotine dependence, cigarettes, uncomplicated
CPT/HCPCS: 73090; 80053 ×2; 83605; 84145; 85025 ×2; 85652; 86141; 87040; 90471; 96365; 99284; G0378; 36415; 90715

== ENCOUNTER 2022-11-07 16:19 | Emergency (ER) | payer SELFPAY ==
[~2022-11-07] VITALS: Ht 172.7 cm; Wt 70.3 kg
[~2022-11-07 16:19] MED LIST changes: +CEPH500T PO; +SULF-221 PO
--- NOTE | 2022-11-07 17:13 | ED Cough/URI ---
General Chief Complaint: Cough/Cold/Flu Symptoms Stated Complaint: BACK PAIN - COUGH - FEVER - CONGESTION Nursing Triage Note: PT AMB TO TRIAGE WITH COMPLAINT OF COUGH, BACK PAIN, BODY ACHES, CHILLS. ALSO COMPLAINING OF LEFT TESTICLE PAIN. STATES SYMPTOMS STARTED YESTERDAY. Source: patient Exam Limitations: no limitations History of Present Illness Date Seen by Provider: Nov 07, 2022 Time Seen by Provider: 17:13 Allergies and Home Medications Allergies Coded Allergies: No Known Drug Allergies (Unverified , 04/08/15) Patient Home Medication List Cefpodoxime Proxetil (Cefpodoxime Proxetil) 200 Mg Tablet, 200 MG PO BID Prescribed by: DENISSE AZEVEDO on 11/07/22 1856 Cephalexin (Cephalexin) 500 Mg Tablet, 500 MG PO BID Prescribed by: DAVE ETIENNE on 05/31/22 1230 Sulfamethoxazole/Trimethoprim (Bactrim Ds Tablet) 800 Mg-160 Mg Tablet, 1 EACH PO BID Prescribed by: DAVE ETIENNE on 05/31/22 1230 Past Oyiapfw-Mpmkll-Aypogc Hx Patient Social History Tobacco Use?: Yes Tobacco type used: Cigarettes Smoking Status: Current Everyday Smoker Use of E-Cig and/or Vaping dev: No Substance use?: No Alcohol Use?: Yes Alcohol Frequency: Once in a while Pt feels they are or have been: No Immunizations Up To Date Tetanus Booster (TDap): Unknown Influenza Vaccine Up-to-Date: No; Not Current First/Initial COVID19 Vaccinat: NO Past Medical History Surgery/Hospitalization HX: denies Surgeries: Yes (C-SPINE SURGERY WITH HARDWARE; HIATAL HERNIA REPAIR) Abdominal, Orthopedic Respiratory: No Cardiac: No Neurological: No Genitourinary: No Gastrointestinal: Yes (HIATAL HERNIA REPAIR) Gastroesophageal Reflux, Diverticulosis, Hiatal Hernia Musculoskeletal: Yes (CHRONIC NECK PAIN ) Degenerate Disk Disease Endocrine: No HEENT: No Cancer: No Psychosocial: No Integumentary: No Blood Disorders: No Family Medical History Heart Disease Physical Exam Vital Signs - First Documented 11/07/22 16:22 Temp 37.4 Pulse 88 Resp 16 B/P (MAP) 152/97 (115) Pulse Ox 97 O2 Delivery Room Air Capillary Refill : Less Than 3 Seconds Height: 0'67.00" Weight: 189lbs. oz. 85.936470yn; 23.00 BMI Method: Progress/Results/Core Measures Suspected Sepsis SIRS Temperature: Pulse: 88 Respiratory Rate: 16 Laboratory Tests 11/07/22 17:40: White Blood Count 6.3 Blood Pressure 152 /97 Mean: 115 Laboratory Tests 11/07/22 17:40: Creatinine 0.77, Platelet Count 261, Total Bilirubin 0.4 Results/Orders Lab Results Laboratory Tests Test 11/07/22 16:26 11/07/22 17:30 11/07/22 17:40 Range/Units Influenza Type A (RT-PCR) Detected H Not Detecte Influenza Type B (RT-PCR) Not Detected Not Detecte SARS-CoV-2 RNA (RT-PCR) Not Detected Not Detecte Urine Color YELLOW Urine Clarity CLEAR Urine pH 6.5 5-9 Urine Specific [place] >=1.030 1.016-1.022 Urine Protein 1+ H NEGATIVE Urine Glucose (UA) NEGATIVE NEGATIVE Urine Ketones NEGATIVE NEGATIVE Urine Nitrite NEGATIVE NEGATIVE Urine Bilirubin NEGATIVE NEGATIVE Urine Urobilinogen 1.0 < = 1.0 MG/DL Urine Leukocyte Esterase TRACE H NEGATIVE Urine RBC (Auto) 1+ H NEGATIVE Urine RBC 5-10 H /HPF Urine WBC 5-10 H /HPF Urine Squamous Epithelial Cells 0-2 /HPF Urine Crystals NONE /LPF Urine Bacteria MODERATE H /HPF Urine Casts NONE /LPF Urine Mucus SMALL H /LPF Urine Culture Indicated YES White Blood Count 6.3 4.3-11.0 10^3/uL Red Blood Count 4.95 4.30-5.52 10^6/uL Hemoglobin 14.7 13.3-17.7 g/dL Hematocrit 44 40-54 % Mean Corpuscular Volume 88 80-99 fL Mean Corpuscular Hemoglobin 30 25-34 pg Mean Corpuscular Hemoglobin Concent 34 32-36 g/dL Red Cell Distribution Width 13.8 10.0-14.5 % Platelet Count 261 130-400 10^3/uL Mean Platelet Volume 9.7 9.0-12.2 fL Immature Granulocyte % (Auto) 0 % Neutrophils (%) (Auto) 68 42-75 % Lymphocytes (%) (Auto) 20 12-44 % Monocytes (%) (Auto) 11 0-12 % Eosinophils (%) (Auto) 0 0-10 % Basophils (%) (Auto) 0 0-10 % Neutrophils # (Auto) 4.3 1.8-7.8 10^3/uL Lymphocytes # (Auto) 1.2 1.0-4.0 10^3/uL Monocytes # (Auto) 0.7 0.0-1.0 10^3/uL Eosinophils # (Auto) 0.0 0.0-0.3 10^3/uL Basophils # (Auto) 0.0 0.0-0.1 10^3/uL Immature Granulocyte # (Auto) 0.0 0.0-0.1 10^3/uL Sodium Level 132 L 135-145 MMOL/L Potassium Level 3.4 L 3.6-5.0 MMOL/L Chloride Level 99 98-107 MMOL/L Carbon Dioxide Level 24 21-32 MMOL/L Anion Gap 9 5-14 MMOL/L Blood Urea Nitrogen 15 7-18 MG/DL Creatinine 0.77 0.60-1.30 MG/DL Estimat Glomerular Filtration Rate 106 BUN/Creatinine Ratio 19 Glucose Level 92 70-105 MG/DL Calcium Level 8.4 L 8.5-10.1 MG/DL Corrected Calcium 8.4 L 8.5-10.1 MG/DL Total Bilirubin 0.4 0.1-1.0 MG/DL Aspartate Amino Transf (AST/SGOT) 24 5-34 U/L Alanine Aminotransferase (ALT/SGPT) 31 0-55 U/L Alkaline Phosphatase 79 40-136 U/L Total Protein 7.2 6.4-8.2 GM/DL Albumin 4.0 3.2-4.5 GM/DL My Orders Orders - DENISSE AZEVEDO INVASIVE CARDIOVASCULAR TECHNOLOGIST Covid 19 Inhouse Test (11/07/22 16:21) Influenza A And B By Pcr (11/07/22 16:21) Cbc With Automated Diff (11/07/22 17:11) Comprehensive Metabolic Panel (11/07/22 17:11) Ed Iv/Invasive Line Start (11/07/22 17:11) Ct Abdomen/Pelvis W (11/07/22 17:11) Ketorolac Injection (Toradol Injection) (11/07/22 17:15) Ua Culture If Indicated (11/07/22 17:13) Iohexol Injection (Omnipaque 350 Mg/Ml 1 (11/07/22 17:30) Received Contrast (Hold Metformin- Contr (11/07/22 17:30) Ns (Ivpb) (Sodium Chloride 0.9% Ivpb Bag (11/07/22 17:30) Urine Culture (11/07/22 17:30) Medications Given in ED Current Medications Medications Dose Ordered Sig/Fidencio Route Start Time Stop Time Status Last Admin Dose Admin Iohexol 100 ml ONCE ONCE IV 11/07/22 17:30 11/07/22 17:31 DC 11/07/22 18:01 80 ML Ketorolac Tromethamine 15 mg ONCE ONCE IVP 11/07/22 17:15 11/07/22 17:16 DC 11/07/22 17:41 15 MG Sodium Chloride 100 ml ONCE ONCE IV 11/07/22 17:30 11/07/22 17:31 DC 11/07/22 18:01 80 ML Vital Signs/I&O 11/07/22 16:22 Temp 37.4 Pulse 88 Resp 16 B/P (MAP) 152/97 (115) Pulse Ox 97 O2 Delivery Room Air Capillary Refill : Less Than 3 Seconds Blood Pressure Mean: 115 Departure Impression Primary Impression: Influenza Additional Impression: UTI (urinary tract infection) Disposition: 01 HOME, SELF-CARE Condition: Stable Departure-Patient Inst. Decision time for Depature: 18:55 Referrals: NO,LOCAL PHYSICIAN (PCP/Family) Primary Care Physician Patient Instructions: Urinary Tract Infection, Adult ED, Flu, Adult ED Add. Discharge Instructions: Plan: 1. Take antibiotics as directed complete full course even if you begin to feel better. 2. Make sure to complain of fluids to keep hydrated and to flush your bladder. 3. You are positive for influenza A, this is a viral illness and will recover on your own. 4. You can take Tylenol and ibuprofen as needed for discomfort and fever. 5. Return to the ER for any new, concerning, worsening symptoms. All discharge instructions reviewed with patient and/or family. Voiced understanding. Scripts Cefpodoxime Proxetil (Cefpodoxime Proxetil) 200 Mg Tablet 200 MG PO BID for 7 Days, #14 TAB 0 Refills Prov: DENISSE AZEVEDO INVASIVE CARDIOVASCULAR TECHNOLOGIST 11/07/22 DENISSE AZEVEDO INVASIVE CARDIOVASCULAR TECHNOLOGIST Nov 07, 2022 17:13
[2022-11-07] MEDS ORDERED: KETOROLAC 30 MG/ML VIAL IVP ONE (17:15)
[2022-11-07] MEDS ORDERED: IOHEXOL 350 MG/ML 100 ML (OMNIPAQUE 350) VIAL IV ONE (17:30)
[2022-11-07] MEDS ORDERED: NS 100 ML (IVPB) BAG IV ONE (17:30)
[2022-11-07] MEDS ORDERED: HOLD METFORMIN - RECEIVED CONTRAST 20 ML VIAL IV SCH (17:30)
[2022-11-07 17:49] LABS: BILIRUBIN,URINE NEGATIVE (NEGATIVE); CLARITY,URINE CLEAR; COLOR,URINE YELLOW; GLUCOSE, URINE (UA) NEGATIVE (NEGATIVE); KETONES,URINE NEGATIVE (NEGATIVE); LEUKOCYTE ESTERASE ,URINE TRACE (NEGATIVE); NITRITE,URINE NEGATIVE (NEGATIVE); PH,URINE 6.5 (5-9); PROTEIN,URINE 1+ (NEGATIVE)
[2022-11-07 17:53] LABS: BASOPHILS % (AUTO) 0 % (0-10); EOSINOPHILS % (AUTO) 0 % (0-10); HEMATOCRIT 44 % (40-54); HEMOGLOBIN 14.7 g/dL (13.3-17.7); LYMPHOCYTES # (AUTO) 1.2 10^3/uL (1.0-4.0); LYMPHOCYTES % (AUTO) 20 % (12-44); MEAN CORPUSCULAR HEMOGLOBIN 30 pg (25-34); MEAN CORPUSCULAR HGB CONC 34 g/dL (32-36); MEAN CORPUSCULAR VOLUME 88 fL (80-99); MEAN PLATELET VOLUME 9.7 fL (9.0-12.2); MONOCYTES # (AUTO) 0.7 10^3/uL (0.0-1.0); MONOCYTES % (AUTO) 11 % (0-12); NEUTROPHILS # (AUTO) 4.3 10^3/uL (1.8-7.8); NEUTROPHILS % (AUTO) 68 % (42-75); PLATELET COUNT 261 10^3/uL (130-400); WHITE BLOOD COUNT 6.3 10^3/uL (4.3-11.0)
[2022-11-07 18:03] LABS: POTASSIUM 3.4 MMOL/L (3.6-5.0)
[2022-11-07 18:04] LABS: CALCIUM 8.4 MG/DL (8.5-10.1)
[2022-11-07 18:05] LABS: TOTAL PROTEIN 7.2 GM/DL (6.4-8.2)
[2022-11-07 18:07] LABS: BILIRUBIN,TOTAL 0.4 MG/DL (0.1-1.0)
[2022-11-07 18:09] LABS: BACTERIA,URINE MODERATE /HPF; SQUAMOUS EPITHELIAL CELL,UR 0-2 /HPF
[2022-11-07 18:09] LABS: CREATININE SERUM 0.77 MG/DL (0.60-1.30)
--- NOTE | 2022-11-07 18:09 | Diagnostic Imaging Report ---
PROCEDURE: CT abdomen and pelvis with contrast. TECHNIQUE: Multiple contiguous axial images were obtained through the abdomen and pelvis after administration of intravenous contrast. Auto Exposure Controls were utilized during the CT exam to meet ALARA standards for radiation dose reduction. All CT scans use one or more of the following dose optimizing techniques: automated exposure control, MA and/or KvP adjustment based on patient size and exam type or iterative reconstruction. INDICATION: Cough. Back pain. Chills. Left testicular pain. COMPARISON: 05/17/2020. FINDINGS: Included portions of the lung bases show mild dependent atelectasis. CT ABDOMEN: There is colonic diverticulosis, but no CT evidence of acute diverticulitis. Normal appendix is identified. Small bowel loops are nondistended. Postsurgical changes of probable previous [place]ash[place] fundoplication are noted. The kidneys, adrenal glands, spleen, pancreas, and liver have a normal CT appearance. There is no loculated fluid collection, free fluid, or free air within the abdomen. No abnormal mesenteric or retroperitoneal adenopathy is identified. Note is made of left-sided IVC. Osseous structures show no acute abnormalities. CT PELVIS: Urinary bladder is unopacified. No calculi are seen within the urinary bladder. There is no loculated fluid collection, free fluid, or free air. No abnormal adenopathy is seen. Osseous structures show no acute abnormalities. IMPRESSION: 1. No acute abnormality is seen within the abdomen or pelvis. 2. Left-sided IVC. 3. Colonic diverticulosis, but no CT evidence of acute diverticulitis. Dictated by: Dictated on workstation # [id number]
[2022-11-07] MEDS ORDERED: CEFP200T2 PO (18:56)
[2022-11-07 19:02] VITALS: BP 155/83
== END 2022-11-07 19:02 | disposition home or self-care (01) ==
LOC: EDUNIT# 16:19 → ER 16:20
DX: J10.1 Influenza due to other identified influenza virus with other respiratory manifestations (principal); N39.0 Urinary tract infection, site not specified; F17.210 Nicotine dependence, cigarettes, uncomplicated; Z20.822 Contact with and (suspected) exposure to COVID-19
CPT/HCPCS: 36415; 74177; 80053; 81000; 85025; 87088; 87636

== ENCOUNTER 2023-02-19 19:38 | Inpatient (IN) | payer SELFPAY ==
[~2023-02-19] VITALS: Ht 178 cm; Wt 85.8 kg
[~2023-02-19 19:38] MED LIST changes: +CEFP200T2 PO
[2023-02-19] MEDS ORDERED: morphine INJ 10 MG/ML 1ML (SYR OR VIAL) IVP STA ×2 (19:56→20:47)
[2023-02-19] MEDS ORDERED: NS IV 1000 ML 1,000 ML IV STA (19:56)
--- NOTE | 2023-02-19 19:59 | ED Abdominal Pain ---
General Chief Complaint: Abdominal/GI Problems Stated Complaint: ABD PAIN Nursing Triage Note: PT STATES ABD PAIN ON BOTH SIDES AND LT TESTICLE, VOMITING THIS AFTERNOON, 3 DAYS. HX OF DIVERTICULITIS, CONSTIPATION Source of Information: Patient, Spouse Exam Limitations: No Limitations History of Present Illness Date Seen by Provider: Feb 19, 2023 Time Seen by Provider: 19:39 Initial Comments 53-year-old male with past medical history of diverticulitis coming in due to lower abdominal pain. Is been ongoing for the last 3 days, worsening, sharp, nothing really seems to make it better or worse. Has not taken any medicines for it as of yet today. Had some nausea and nonbloody nonbilious vomiting. Has not had a bowel movement today, but has been passing flatus which his states is very foul-smelling. He states it feels somewhat similar to the diverticulitis episode he had in the past, but worse. Denies any abdominal surgery history. Pain radiates to his left testicle, but he has not noted any swelling or penile discharge. Otherwise denying any fever, chest pain, shortness of breath, rash, or any other concerns Allergies and Home Medications Allergies Coded Allergies: No Known Drug Allergies (Unverified , 04/08/15) Patient Home Medication List Home Medication List Reviewed: Yes Cefpodoxime Proxetil (Cefpodoxime Proxetil) 200 Mg Tablet, 200 MG PO BID Prescribed by: DENISSE AZEVEDO on 11/07/22 185 Cephalexin (Cephalexin) 500 Mg Tablet, 500 MG PO BID Prescribed by: DAVE ETIENNE on 05/31/22 1230 Sulfamethoxazole/Trimethoprim (Bactrim Ds Tablet) 800 Mg-160 Mg Tablet, 1 EACH PO BID Prescribed by: DAVE ETIENNE on 05/31/22 1230 Review of Systems Review of Systems Constitutional: No fever EENTM: No Symptoms Reported Respiratory: No Symptoms Reported Cardiovascular: No Symptoms Reported Gastrointestinal: See HPI Genitourinary: See HPI Musculoskeletal: no symptoms reported Skin: no symptoms reported Psychiatric/Neurological: No Symptoms Reported Endocrine: No Symptoms Reported Hematologic/Lymphatic: No Symptoms Reported Past Udnkkai-Eigfcb-Artsve Hx Patient Social History Tobacco Use?: No Substance use?: No Alcohol Use?: Yes Alcohol Frequency: Once in a while Immunizations Up To Date Tetanus Booster (TDap): Unknown First/Initial COVID19 Vaccinat: NO Second COVID19 Vaccination Slim: NO Third COVID19 Vaccination Date: NO Past Medical History Surgery/Hospitalization HX: DIVERTICULITIS Surgeries: Yes (C-SPINE SURGERY WITH HARDWARE; HIATAL HERNIA REPAIR) Orthopedic Respiratory: No Cardiac: No Neurological: No Genitourinary: No Gastrointestinal: Yes (HIATAL HERNIA REPAIR) Gastroesophageal Reflux, Diverticulosis, Hiatal Hernia Musculoskeletal: Yes (CHRONIC NECK PAIN ) Degenerate Disk Disease Endocrine: No HEENT: No Cancer: No Psychosocial: No Integumentary: No Blood Disorders: No Family Medical History Heart Disease Physical Exam Vital Signs Vital Signs - First Documented 02/19/23 19:52 Temp 36.8 Pulse 89 Resp 22 B/P (MAP) 148/104 (119) Pulse Ox 96 O2 Delivery Room Air Capillary Refill : Less Than 3 Seconds Height/Weight/BMI Height: 0'67.00" Weight: 189lbs. oz. 85.775227ht; 26.00 BMI Method: General Appearance: WD/WN, moderate distress HEENT: PERRL/EOMI, normal ENT inspection, pharynx normal Neck: non-tender, full range of motion, supple, normal inspection Respiratory: chest non-tender, lungs clear, normal breath sounds, no respiratory distress, no accessory muscle use Cardiovascular: regular rate, rhythm, no edema, no murmur Gastrointestinal: normal bowel sounds, guarding (Voluntary guarding); No rebound; tenderness Genital/Rectal: other (Normal sized testicles, no tenderness or swelling noted) Extremities: normal range of motion, non-tender, normal inspection, no pedal edema, no calf tenderness, normal capillary refill Back: normal inspection Neurologic/Psychiatric: no motor/sensory deficits, alert, normal mood/affect Skin: normal color, warm/dry Focused Exam Lactate Level 02/19/23 19:55: Lactic Acid Level 1.42 Lactic Acid Level Laboratory Tests Test 02/19/23 19:55 Lactic Acid Level 1.42 MMOL/L (0.50-2.00) Progress/Results/Core Measures Results/Orders Lab Results Laboratory Tests Test 02/19/23 19:55 Range/Units White Blood Count 14.9 H 4.3-11.0 10^3/uL Red Blood Count 4.41 4.30-5.52 10^6/uL Hemoglobin 12.7 L 13.3-17.7 g/dL Hematocrit 38 L 40-54 % Mean Corpuscular Volume 86 80-99 fL Mean Corpuscular Hemoglobin 29 25-34 pg Mean Corpuscular Hemoglobin Concent 34 32-36 g/dL Red Cell Distribution Width 13.5 10.0-14.5 % Platelet Count 432 H 130-400 10^3/uL Mean Platelet Volume 9.6 9.0-12.2 fL Immature Granulocyte % (Auto) 2 % Neutrophils (%) (Auto) 73 42-75 % Lymphocytes (%) (Auto) 15 12-44 % Monocytes (%) (Auto) 8 0-12 % Eosinophils (%) (Auto) 2 0-10 % Basophils (%) (Auto) 0 0-10 % Neutrophils # (Auto) 10.9 H 1.8-7.8 10^3/uL Lymphocytes # (Auto) 2.2 1.0-4.0 10^3/uL Monocytes # (Auto) 1.2 H 0.0-1.0 10^3/uL Eosinophils # (Auto) 0.3 0.0-0.3 10^3/uL Basophils # (Auto) 0.1 0.0-0.1 10^3/uL Immature Granulocyte # (Auto) 0.2 H 0.0-0.1 10^3/uL Erythrocyte Sedimentation Rate 67 H 0-30 MM/HR Sodium Level 141 135-145 MMOL/L Potassium Level 3.2 L 3.6-5.0 MMOL/L Chloride Level 107 98-107 MMOL/L Carbon Dioxide Level 21 21-32 MMOL/L Anion Gap 13 5-14 MMOL/L Blood Urea Nitrogen 13 7-18 MG/DL Creatinine 0.78 0.60-1.30 MG/DL Estimat Glomerular Filtration Rate 105 BUN/Creatinine Ratio 17 Glucose Level 107 H 70-105 MG/DL Lactic Acid Level 1.42 0.50-2.00 MMOL/L Calcium Level 8.8 8.5-10.1 MG/DL Corrected Calcium 9.4 8.5-10.1 MG/DL Total Bilirubin 0.3 0.1-1.0 MG/DL Aspartate Amino Transf (AST/SGOT) 22 5-34 U/L Alanine Aminotransferase (ALT/SGPT) 32 0-55 U/L Alkaline Phosphatase 82 40-136 U/L C-Reactive Protein High Sensitivity 8.61 H 0.00-0.50 MG/DL Total Protein 7.6 6.4-8.2 GM/DL Albumin 3.2 3.2-4.5 GM/DL Lipase 28 8-78 U/L My Orders Orders - DANIELLE LANGSTON MD Ct Abdomen/Pelvis W (02/19/23 19:56) Ed Iv/Invasive Line Start (02/19/23 19:56) Cbc With Automated Diff (02/19/23 19:56) Comprehensive Metabolic Panel (02/19/23 19:56) Hs C Reactive Protein (02/19/23 19:56) Lactic Acid Analyzer (02/19/23 19:56) Lipase (02/19/23 19:56) Ua Culture If Indicated (02/19/23:56) Erythrocyte Sedimentation Rate (02/19/23 19:56) Morphine Injection (Morphine Injection (02/19/23 19:56) Ondansetron Injection (Zofran Injectio (02/19/23 20:00) Ns Iv 1000 Ml (Sodium Chloride 0.9%) (02/19/23 19:56) Iohexol Injection (Omnipaque 350 Mg/Ml 1 (02/19/23 20:00) Received Contrast (Hold Metformin- Contr (02/19/23 20:00) Ns (Ivpb) (Sodium Chloride 0.9% Ivpb Bag (02/19/23 20:00) Iohexol Injection (Omnipaque 350 Mg/Ml 1 (02/19/23 20:00) Received Contrast (Hold Metformin- Contr (02/19/23 20:00) Ns (Ivpb) (Sodium Chloride 0.9% Ivpb Bag (02/19/23 20:00) Morphine Injection (Morphine Injection (02/19/23 20:47) Piperacillin Sodium/Tazobactam (Zosyn Vi (02/19/23 21:00) Medications Given in ED Current Medications Medications Dose Ordered Sig/Fidencio Route Start Time Stop Time Status Last Admin Dose Admin Iohexol 100 ml ONCE ONCE IV 02/19/23 20:00 02/19/23 20:01 DC 02/19/23 20:41 80 ML Ondansetron HCl 4 mg ONCE ONCE IVP 02/19/23 20:00 02/19/23 20:01 DC 02/19/23 20:06 4 MG Piperacillin Sod/ Tazobactam Sod 4.5 gm/Sodium Chloride 100 ml @ 200 mls/hr ONCE ONCE IV 02/19/23 21:00 02/19/23 21:29 02/19/23 21:01 200 MLS/HR Sodium Chloride 100 ml ONCE ONCE IV 02/19/23 20:00 02/19/23 20:01 DC 02/19/23 20:41 100 ML Vital Signs/I&O 02/19/23 19:52 Temp 36.8 Pulse 89 Resp 22 B/P (MAP) 148/104 (119) Pulse Ox 96 O2 Delivery Room Air Blood Pressure Mean: 119 Progress Progress Note : Progress Note 53-year-old male with above history coming in due to abdominal pain. ABCs were intact and vitals were stable on presentation. IV was placed and basic labs were obtained including lactic acid and inflammatory markers. Given morphine 4 mg IV x2 after reassessment with mild improvement in his pain. Lactic acid normal, leukocytosis is evidence, inflammatory markers slightly elevated. CT imaging concerning for perforated diverticulitis with abscess. I contacted Dr. Corona who will admit the patient to his service for further evaluation and management. Patient was given Zosyn as well as Flagyl. Orders placed by me. I then contacted Dr. Aburto for consultation. Diagnostic Imaging Diagonstic Imaging: CT (abd/pelvis) Comments [facility]. [place], [place] NAME: TOM LLAMAS [facility] REC#: [id number] PT STATUS: REG ER : 1970 PHYSICIAN: DANIELLE LANGSTON MD ADMIT DATE: 02/19/23/ER Signed Date of Exam:02/19/23 CT ABDOMEN/PELVIS W PROCEDURE: CT abdomen and pelvis with contrast. TECHNIQUE: Multiple contiguous axial images were obtained through the abdomen and pelvis after administration of intravenous contrast. Auto Exposure Controls were utilized during the CT exam to meet ALARA standards for radiation dose reduction. All CT scans use one or more of the following dose optimizing techniques: automated exposure control, MA and/or KvP adjustment based on patient size and exam type or iterative reconstruction. INDICATION: 53-year-old male with generalized abdominal pain, left testicular pain. COMPARISONS: 11/07/2022 FINDINGS: Lung bases show small right effusion with bilateral lower lobe atelectatic infiltrates, right greater than left. There is moderate central venous congestion. Cardiac contour is upper limits of normal. There is a trace pericardial effusion. Liver shows uniform attenuation. Gallbladder is nondistended. Spleen and GE junction are normal. Stomach and duodenal sweep are unremarkable. Pancreas shows sharp margins. Adrenals are normal. Kidneys appear normal in size, position, and contour. There is minimal nonspecific bilateral perinephric stranding. There is symmetrical perfusion of contrast. There is no hydronephrosis or hydroureter. Both ureters are seen intermittently through their course and appear unremarkable. Partially filled bladder is also normal. Nonopacified loops of small bowel are normal. The appendix is unremarkable. Large bowel contains fecal material and gas. There is sigmoid diverticulosis with acute diverticulitis. There is a perforated diverticulum with free air. There is a 4.5 cm x 3.7 cm diverticular abscess in the low abdomen and pelvis adjacent to the sigmoid colon. Visualized vasculature shows nonaneurysmal aortic calcifications extending to the iliac and femoral arteries. Bone windows show some age-appropriate degenerative changes of lumbosacral spine. IMPRESSION: 1. Sigmoid diverticulosis with acute diverticulitis. There is a perforated diverticulum with free air in the abdomen. There is also a diverticular abscess measuring approximately 4.5 cm x 3.7 cm. 2. Bilateral bibasilar atelectatic infiltrates, right greater than left. Small right effusion seen. 3. Borderline cardiomegaly with trace pericardial effusion. 4. No evidence of cholecystitis, obstructive uropathy or appendicitis. Additional nonemergent findings as described above. Dictated by: Dictated on workstation # [id number] Dict: 02/19/232032 Trans: 02/19/232103 [id number] Interpreted by: SELINA LUNDBERG MD Electronically signed by: SELINA LUNDBERG MD 02/19/232103 Departure Impression Primary Impression: Diverticulitis of colon with perforation Disposition: ADMITTED INPATIENT Condition: Stable Admissions Decision to Admit Reason: Admit from ER (General) Decision to Admit/Date: Feb 19, 2023 Time/Decision to Admit Time: 21:00 Departure-Patient Inst. Referrals: NO,LOCAL PHYSICIAN (PCP/Family) Primary Care Physician DANIELLE LANGSTON MD Feb 19, 2023 19:59
[2023-02-19] MEDS ORDERED: HOLD METFORMIN - RECEIVED CONTRAST 20 ML VIAL IV SCH ×2 (20:00)
[2023-02-19] MEDS ORDERED: NS 100 ML (IVPB) BAG IV ONE ×2 (20:00)
[2023-02-19] MEDS ORDERED: ONDANSETRON 4 MG/2 ML (SDV) Z0FRAN IVP ONE (20:00)
[2023-02-19] MEDS ORDERED: IOHEXOL 350 MG/ML 100 ML (OMNIPAQUE 350) VIAL IV ONE ×2 (20:00)
[2023-02-19 20:05] LABS: BASOPHILS # (AUTO) 0.1 10^3/uL (0.0-0.1); BASOPHILS % (AUTO) 0 % (0-10); EOSINOPHILS # (AUTO) 0.3 10^3/uL (0.0-0.3); EOSINOPHILS % (AUTO) 2 % (0-10); HEMATOCRIT 38 % (40-54); HEMOGLOBIN 12.7 g/dL (13.3-17.7); LYMPHOCYTES # (AUTO) 2.2 10^3/uL (1.0-4.0); LYMPHOCYTES % (AUTO) 15 % (12-44); MEAN CORPUSCULAR HEMOGLOBIN 29 pg (25-34); MEAN CORPUSCULAR HGB CONC 34 g/dL (32-36); MEAN CORPUSCULAR VOLUME 86 fL (80-99); MEAN PLATELET VOLUME 9.6 fL (9.0-12.2); MONOCYTES # (AUTO) 1.2 10^3/uL (0.0-1.0); MONOCYTES % (AUTO) 8 % (0-12); NEUTROPHILS # (AUTO) 10.9 10^3/uL (1.8-7.8); NEUTROPHILS % (AUTO) 73 % (42-75); PLATELET COUNT 432 10^3/uL (130-400); WHITE BLOOD COUNT 14.9 10^3/uL (4.3-11.0)
[2023-02-19 20:27] LABS: ERYTHROCYTE SEDIMENTATION RATE 67 MM/HR (0-30)
[2023-02-19 20:29] LABS: ALBUMIN 3.2 GM/DL (3.2-4.5); BILIRUBIN,TOTAL 0.3 MG/DL (0.1-1.0); CALCIUM 8.8 MG/DL (8.5-10.1); CREATININE SERUM 0.78 MG/DL (0.60-1.30); POTASSIUM 3.2 MMOL/L (3.6-5.0); TOTAL PROTEIN 7.6 GM/DL (6.4-8.2)
--- NOTE | 2023-02-19 20:47 | Diagnostic Imaging Report ---
PROCEDURE: CT abdomen and pelvis with contrast. TECHNIQUE: Multiple contiguous axial images were obtained through the abdomen and pelvis after administration of intravenous contrast. Auto Exposure Controls were utilized during the CT exam to meet ALARA standards for radiation dose reduction. All CT scans use one or more of the following dose optimizing techniques: automated exposure control, MA and/or KvP adjustment based on patient size and exam type or iterative reconstruction. INDICATION: 53-year-old male with generalized abdominal pain, left testicular pain. COMPARISONS: 11/07/2022 FINDINGS: Lung bases show small right effusion with bilateral lower lobe atelectatic infiltrates, right greater than left. There is moderate central venous congestion. Cardiac contour is upper limits of normal. There is a trace pericardial effusion. Liver shows uniform attenuation. Gallbladder is nondistended. Spleen and GE junction are normal. Stomach and duodenal sweep are unremarkable. Pancreas shows sharp margins. Adrenals are normal. Kidneys appear normal in size, position, and contour. There is minimal nonspecific bilateral perinephric stranding. There is symmetrical perfusion of contrast. There is no hydronephrosis or hydroureter. Both ureters are seen intermittently through their course and appear unremarkable. Partially filled bladder is also normal. Nonopacified loops of small bowel are normal. The appendix is unremarkable. Large bowel contains fecal material and gas. There is sigmoid diverticulosis with acute diverticulitis. There is a perforated diverticulum with free air. There is a 4.5 cm x 3.7 cm diverticular abscess in the low abdomen and pelvis adjacent to the sigmoid colon. Visualized vasculature shows nonaneurysmal aortic calcifications extending to the iliac and femoral arteries. Bone windows show some age-appropriate degenerative changes of lumbosacral spine. IMPRESSION: 1. Sigmoid diverticulosis with acute diverticulitis. There is a perforated diverticulum with free air in the abdomen. There is also a diverticular abscess measuring approximately 4.5 cm x 3.7 cm. 2. Bilateral bibasilar atelectatic infiltrates, right greater than left. Small right effusion seen. 3. Borderline cardiomegaly with trace pericardial effusion. 4. No evidence of cholecystitis, obstructive uropathy or appendicitis. Additional nonemergent findings as described above. Dictated by: Dictated on workstation # [id number]
[2023-02-19] MEDS ORDERED: PIPERACILLIN SODIUM/TAZOBACTAM 4.5 GM in NS (IVPB) 100 ML IV ONE (21:00)
[2023-02-19] MEDS ORDERED: HYDROmorphone 2 MG/ML VIAL (DILAUDID) IV ONE (21:45)
[2023-02-19] MEDS ORDERED: NS IV 1000 ML 0 ML ONE (22:04)
[2023-02-19 22:07] VITALS: BP 144/97
[2023-02-19] MEDS ORDERED: NS IV 1000 ML 1,000 ML ONE (22:12)
[2023-02-19] MEDS: NS IV 1000 ML 1,000 ML IV SCH (22:45)
[2023-02-19] MEDS: metroNIDAZOLE 500 MG/100 ML IVPB (PRE-MIX) IV SCH (22:50)
[2023-02-19] MEDS: HYDROmorphone 2 MG/ML VIAL (DILAUDID) IV PRN (23:47)
[2023-02-20] VITALS (11 sets, daily range): BP systolic 119–148; BP diastolic 73–91
[2023-02-20] MEDS: PIPERACILLIN SODIUM/TAZOBACTAM 4.5 GM in NS (IVPB) 100 ML IV SCH ×3 (04:18→21:04)
[2023-02-20] MEDS: HYDROmorphone 2 MG/ML VIAL (DILAUDID) IV PRN ×6 (04:21→23:22)
[2023-02-20] MEDS ORDERED: RT-ALBUTEROL SULF 2.5 MG/3 ML PRE-MIX VIAL INH PRN (04:30)
[2023-02-20 05:38] LABS: BASOPHILS % (AUTO) 0 % (0-10); EOSINOPHILS # (AUTO) 0.3 10^3/uL (0.0-0.3); EOSINOPHILS % (AUTO) 3 % (0-10); HEMATOCRIT 32 % (40-54); HEMOGLOBIN 10.8 g/dL (13.3-17.7); LYMPHOCYTES # (AUTO) 2.4 10^3/uL (1.0-4.0); LYMPHOCYTES % (AUTO) 21 % (12-44); MEAN CORPUSCULAR HEMOGLOBIN 29 pg (25-34); MEAN CORPUSCULAR HGB CONC 33 g/dL (32-36); MEAN CORPUSCULAR VOLUME 88 fL (80-99); MEAN PLATELET VOLUME 9.6 fL (9.0-12.2); MONOCYTES # (AUTO) 0.8 10^3/uL (0.0-1.0); MONOCYTES % (AUTO) 7 % (0-12); NEUTROPHILS # (AUTO) 7.5 10^3/uL (1.8-7.8); NEUTROPHILS % (AUTO) 67 % (42-75); PLATELET COUNT 309 10^3/uL (130-400); WHITE BLOOD COUNT 11.1 10^3/uL (4.3-11.0)
[2023-02-20 05:55] LABS: CALCIUM 7.7 MG/DL (8.5-10.1); CREATININE SERUM 0.75 MG/DL (0.60-1.30)
[2023-02-20] MEDS: NS IV 1000 ML 1,000 ML IV SCH ×2 (06:36→18:31)
--- NOTE | 2023-02-20 07:04 | History & Physical-Surgical ---
LIZY MULLINS 02/20/23 0704: History of Present Illness History of Present Illness Reason for visit/HPI 53yo M with h/o diverticulitis and GERD was admitted for perforated diverticulitis last night. Pt is very MAKAH and is at bedside. Pt states that ~1 week ago, he started to experience RUQ and LLQ pain with radiation into his lower back. Pt states that pain worsened 3 days ago and became a 10/10 constant, sharp, pain. Pt states pain was relieved with standing and ambulation. Pt reports decreased appetite, nausea, and SOB during this time. reports subjective "low grade" fevers every day for the past 3 days. Pt became concerned yesterday due to pain not getting any better and came to the ED. ED workup was remarkable for an elevated WBC of 14.1 and elevated CRP of 8.61. CT abd/pelvis showed sigmoid diverticulosis with acute diverticulitis with a perforated diverticulum with free air in the abdomen and diverticular abscess (4.5cm x 3.7cm). Pt was then admitted to the floor for further workup. In room, pt is sleeping comfortably. Pt reports improvement of abd pain, rating it an 8/10. No acute abd on exam. Pt still is experiencing some nausea and SOB but notes that it is improved from yesterday. Pt also c/o R lower CP that started this morning but notes that he normally experiences this pain and has a "pinched nerve". Pt is voiding without issue. Last BM was yesterday prior to coming to ED. WBC is improved today at 11.1. Pt expresses desire to eat today. Pt otherwise has no other complaints. Pt denies nausea, vomiting, chills overnight, worsening SOB, and hematuria. Date of Admission Feb 19, 2023 at 21:45 Date Seen by a Provider: Feb 20, 2023 Time Seen by a Provider: 06:20 I consulted on this patient on 02/20/23 07:03 Attending Physician No,Local Physician Admitting Physician Admitting Physician: Colin Corona DO Attending Physician: Colin Corona DO Consult Allergies and Home Medications Allergies Coded Allergies: No Known Drug Allergies (Unverified , 04/08/15) Patient Home Medication List Home Medication List Reviewed: Yes No Active Prescriptions or Reported Meds Past Jmvzjyi-Bteihf-Tfzmtj Hx Patient Social History Marrital Status: Tobacco Use?: Yes Smoking Status: Never a Smoker Smokeless type used: Chew Smokeless Tobacco Frequency: Current Everyday User Use of E-Cig and/or Vaping dev: No Substance use?: No Alcohol Use?: Yes (h/o alcoholism 2-3 years ago) Alcohol type: Hard Liquor (1 pint in one setting weekly) Additional alcohol type: VODKA Alcohol Frequency: Couple times a week Pt feels they are or have been: No Immunizations Up To Date Date of Influenza Vaccine: Sep 01, 2022 First/Initial COVID19 Vaccinat: NO Second COVID19 Vaccination Slim: NO Tetanus Booster (TDap): Unknown Hepatitis A: No Hepatitis B: No Current Status Advance Directives: Unable to obtain Communicates: Verbally Primary Language: Serbian Preferred Spoken Language: Serbian Is interpretation needed?: No Implanted or Applied Medical D: None Past Medical History Surgeries: Abdominal (hiatal hernia repair), Orthopedic Currently Using BIPAP: Yes Hypertension Gastroesophageal Reflux, Diverticulosis (and diverticulitis), Hiatal Hernia (states "3 holes in esophagus" repaired during hiatal hernia repair) Degenerate Disk Disease, Chronic Back Pain Hearing Impairment: Hard of Hearing Anxiety, Depression Blood Disorders: No Family Medical History Heart Disease (father), Cancer (mother-lung cancer), Diabetes (father), Hypertension (father) Review of Systems Constitutional: No chills, No diaphoresis EENTM: No ear pain, No blurred vision Respiratory: cough (chronic), short of breath Cardiovascular: chest pain (chronic) Gastrointestinal: abdominal pain (RUQ and LLQ); No hematemesis; loss of appetite, nausea; No vomiting Genitourinary: No dysuria, No hematuria Musculoskeletal: back pain (rad from abd pain ); No neck pain Skin: No change in color, No change in hair/nails Psychiatric/Neurological: Denies Anxiety, Denies Depressed All Other Systems Reviewed Negative Unless Noted: Yes (Negative excepted noted.) Physical Exam Vital Signs Vital Signs - First Documented 02/19/23 02/20/23 19:52 04:20 Temp 36.8 Pulse 89 Resp 22 B/P (MAP) 148/104 (119) Pulse Ox 96 O2 Delivery Room Air FiO2 21 Capillary Refill : Less Than 3 Seconds Height, Weight, BMI Height: 0'67.00" Weight: 189lbs. oz. 85.515931ss; 26.92 BMI Method: General Appearance: No Apparent Distress, WD/WN HEENT: PERRL/EOMI, Moist Mucous Membranes Neck: Supple Respiratory: Lungs Clear, Normal Breath Sounds, No Accessory Muscle Use, No Respiratory Distress Cardiovascular: Regular Rate, Rhythm, No Gallop, No Murmur Gastrointestinal: Distended, Tenderness (RUQ and LLQ) Extremity: No Calf Tenderness, No Pedal Edema Neurologic/Psychiatric: Alert, Oriented x3, Normal Mood/Affect Skin: Normal Color, Warm/Dry Lymphatic: No Adenopathy Data Review Labs Laboratory Tests 02/19/23 19:55: White Blood Count 14.9H, Red Blood Count 4.41, Hemoglobin 12.7L, Hematocrit 38L, Mean Corpuscular Volume 86, Mean Corpuscular Hemoglobin 29, Mean Corpuscular Hemoglobin Concent 34, Red Cell Distribution Width 13.5, Platelet Count 432H, Mean Platelet Volume 9.6, Immature Granulocyte % (Auto) 2, Neutrophils (%) (Auto) 73, Lymphocytes (%) (Auto) 15, Monocytes (%) (Auto) 8, Eosinophils (%) (Auto) 2, Basophils (%) (Auto) 0, Neutrophils # (Auto) 10.9H, Lymphocytes # (Auto) 2.2, Monocytes # (Auto) 1.2H, Eosinophils # (Auto) 0.3, Basophils # (Auto) 0.1, Immature Granulocyte # (Auto) 0.2H, Erythrocyte Sedimentation Rate 67H, Sodium Level 141, Potassium Level 3.2L, Chloride Level 107, Carbon Dioxide Level 21, Anion Gap 13, Blood Urea Nitrogen 13, Creatinine 0.78, Estimat Glomerular Filtration Rate 105, BUN/Creatinine Ratio 17, Glucose Level 107H, Lactic Acid Level 1.42, Calcium Level 8.8, Corrected Calcium 9.4, Total Bilirubin 0.3, Aspartate Amino Transf (AST/SGOT) 22, Alanine Aminotransferase (ALT/SGPT) 32, Alkaline Phosphatase 82, C-Reactive Protein High Sensitivity 8.61H, Total Protein 7.6, Albumin 3.2, Lipase 28 02/20/23 05:22: White Blood Count 11.1H, Red Blood Count 3.68L, Hemoglobin 10.8L, Hematocrit 32L , Mean Corpuscular Volume 88, Mean Corpuscular Hemoglobin 29, Mean Corpuscular Hemoglobin Concent 33, Red Cell Distribution Width 13.3, Platelet Count 309, Mean Platelet Volume 9.6, Immature Granulocyte % (Auto) 2, Neutrophils (%) (Auto) 67, Lymphocytes (%) (Auto) 21, Monocytes (%) (Auto) 7, Eosinophils (%) (Auto) 3, Basophils (%) (Auto) 0, Neutrophils # (Auto) 7.5, Lymphocytes # (Auto) 2.4, Monocytes # (Auto) 0.8, Eosinophils # (Auto) 0.3, Basophils # (Auto) 0.0, Immature Granulocyte # (Auto) 0.2H, Sodium Level 140, Potassium Level 3.0L, Chloride Level 109H, Carbon Dioxide Level 19L, Anion Gap 12, Blood Urea Nitrogen 10, Creatinine 0.75, Estimat Glomerular Filtration Rate 107, BUN/Creatinine Ratio 13, Glucose Level 91, Lactic Acid Level 0.61, Calcium Level 7.7L Radiology Date of Exam:02/19/23 CT ABDOMEN/PELVIS W PROCEDURE: CT abdomen and pelvis with contrast. TECHNIQUE: Multiple contiguous axial images were obtained through the abdomen and pelvis after administration of intravenous contrast. Auto Exposure Controls were utilized during the CT exam to meet ALARA standards for radiation dose reduction. All CT scans use one or more of the following dose optimizing techniques: automated exposure control, MA and/or KvP adjustment based on patient size and exam type or iterative reconstruction. INDICATION: 53-year-old male with generalized abdominal pain, left testicular pain. COMPARISONS: 11/07/2022 FINDINGS: Lung bases show small right effusion with bilateral lower lobe atelectatic infiltrates, right greater than left. There is moderate central venous congestion. Cardiac contour is upper limits of normal. There is a trace pericardial effusion. Liver shows uniform attenuation. Gallbladder is nondistended. Spleen and GE junction are normal. Stomach and duodenal sweep are unremarkable. Pancreas shows sharp margins. Adrenals are normal. Kidneys appear normal in size, position, and contour. There is minimal nonspecific bilateral perinephric stranding. There is symmetrical perfusion of contrast. There is no hydronephrosis or hydroureter. Both ureters are seen intermittently through their course and appear unremarkable. Partially filled bladder is also normal. Nonopacified loops of small bowel are normal. The appendix is unremarkable. Large bowel contains fecal material and gas. There is sigmoid diverticulosis with acute diverticulitis. There is a perforated diverticulum with free air. There is a 4.5 cm x 3.7 cm diverticular abscess in the low abdomen and pelvis adjacent to the sigmoid colon. Visualized vasculature shows nonaneurysmal aortic calcifications extending to the iliac and femoral arteries. Bone windows show some age-appropriate degenerative changes of lumbosacral spine. IMPRESSION: 1. Sigmoid diverticulosis with acute diverticulitis. There is a perforated diverticulum with free air in the abdomen. There is also a diverticular abscess measuring approximately 4.5 cm x 3.7 cm. 2. Bilateral bibasilar atelectatic infiltrates, right greater than left. Small right effusion seen. 3. Borderline cardiomegaly with trace pericardial effusion. 4. No evidence of cholecystitis, obstructive uropathy or appendicitis. Additional nonemergent findings as described above. Dictated by: Dictated on workstation # [id number] Dict: 02/19/232032 Trans: 02/19/232103 [id number] [id number] Interpreted by: SELINA LUNDBERG MD Electronically signed by: SELINA LUNDBERG MD 02/19/232103 Assessment/Plan Assessment/Plan Admission Diagonsis Perforated Diverticulosis Admission Status: Inpatient Order (span 2 midnights) Reason for Inpatient Admission: Perforated Diverticulosis Assessment/Plan Perforated Diverticulosis - semi-localized perforation with abscess and free air RUQ and LLQ Abd pain Nausea SOB Leukocytosis - improved NPO IV Abx pain control IVF Will treatment with conservative measures at this time. Will speak with radiology regarding drain placement for abscess COLIN CORONA DO 02/20/231947: History of Present Illness History of Present Illness Reason for visit/HPI 53 year old male who has been havingllq abodminal pain for about a week and worsened the last 3 days. Sharp pain that radiates to the back. Rates it at worse 10/10. Movement makes worse. Laying still makes better. Patient had to make him go to ED to be evaluated last night. Patient was found to have elevated wbc and ct scan demonstrating sigmoid diverticulitis, with perforation/ some free air and abscess. Wbc improved to 11.1 today. Allergies and Home Medications Allergies Coded Allergies: No Known Drug Allergies (Unverified , 04/08/15) Patient Home Medication List Home Medication List Reviewed: Yes No Active Prescriptions or Reported Meds Past Lksewck-Byfsaj-Slqkgu Hx Past Medical History Surgeries: Abdominal (hiatal hernia repair) Family Medical History Reviewed Nursing Family Hx Heart Disease (father), Cancer (mother-lung cancer), Diabetes (father), Hypertension (father) Review of Systems Constitutional: No chills, No diaphoresis EENTM: No ear pain, No blurred vision Respiratory: cough (chronic) Cardiovascular: chest pain (chronic) Gastrointestinal: abdominal pain (LLQ); No hematemesis; loss of appetite, nausea; No vomiting Genitourinary: No dysuria, No hematuria Musculoskeletal: back pain (rad from abd pain ); No neck pain Skin: No change in color, No change in hair/nails Psychiatric/Neurological: Denies Anxiety, Denies Depressed All Other Systems Reviewed Negative Unless Noted: Yes (Negative excepted noted.) Physical Exam General Appearance: No Apparent Distress (resting comfortable in bed), WD/WN HEENT: PERRL/EOMI, Normal ENT Inspection Neck: Non Tender, Supple Respiratory: Chest Non Tender, No Accessory Muscle Use, No Respiratory Distress Cardiovascular: Regular Rate, Rhythm, No JVD Gastrointestinal: No Distended; Tenderness (right lower quadrant no guarding or rebounding but mild tenderness llq) Rectal: Deferred Back: Normal Inspection, No Vertebral Tenderness Extremity: Non Tender, No Calf Tenderness Neurologic/Psychiatric: Alert, Oriented x3 Skin: Normal Color, Warm/Dry Lymphatic: No Adenopathy Assessment/Plan Assessment/Plan Admission Diagonsis sigmoid diverticultitis with perofration and abscess llq abdominal pain Admission Status: Inpatient Order (span 2 midnights) Reason for Inpatient Admission: Patient needing close monitoring, iv antibiotics and possible surgical intevention requiring over 2 midnights. Assessment/Plan Perforated Diverticulitis - perforation with abscess and free air LLQ Abd pain Nausea Leukocytosis - improving NPO IV Abx-Zosyn/Flagyl pain control IVF Will treatment with conservative measures at this time. Will speak with radiol ogy regarding drain placement for abscess HIs exam and vitals are stable and not peritoneal at this time. Will continue with conservative measures at this time. Ir not able to place drain due to location, but may resolve on its own, may repeat ct scan a fter several days to reexamine area Patient understands that there is a good chance that may need surgical intervention and have colostomy. Patient and family agree with plan. Supervisory-Addendum Brief Verification & Attestation Participated in pt care: history, MDM, physical Personally performed: exam, history, MDM, supervision of care Care discussed with: Medical Student Procedures: n/a Results interpretation: Verified all documentation Verification and Attestation of Medical Student E/M Service A medical student performed and documented this service in my presence. I reviewed and verified all information documented by the medical student and made modifications to such information, when appropriate. I personally performed the physical exam and medical decision making. Colin Corona, Feb 20, 2023,19:55 LIZY MULLINS Feb 20, 2023 07:04 COLIN CORONA DO Feb 20, 2023 19:48
[2023-02-20] MEDS: ONDANSETRON 4 MG/2 ML (SDV) Z0FRAN IV PRN ×2 (08:01→16:42)
[2023-02-20] MEDS: metroNIDAZOLE 500 MG/100 ML IVPB (PRE-MIX) IV SCH ×2 (08:04→21:04)
--- NOTE | 2023-02-20 10:27 | Consultation - Hospitalist ---
HPI History of Present Illness: HPI/Chief Complaint Pt is a 53yoCM who presented to the ER due to abd pain. He is sleeping soundlya nd family memeber is at bedside who states this is the first he has slept all night. I attempted to wake him a couple of time and he answered a few questions but otherwise went quickly back to sleep. History is obtained mostly from the family member and records. She states he has had abd painf or about a week but 3 days ago it worsened significantly. He has had diverticulitis in the past but this was worse than that. He started vomiting as well. In the ER he was found to have a leukocytosis and CT Abd revealed sigmoid diverticulitis with perforation and abscess. He was admitted to surgery and I am consulted for medical management. Source: patient, family Exam Limitations: clinical condition Date Seen 02/20/23 Attending Physician No,Local Physician PCP Admitting Physician: Eldon Corona DO Attending Physician: Eldon Corona DO Referring Physician Date of Admission Feb 19, 2023 at 21:45 Home Medications & Allergies Home Medications Reviewed patient Home Medication Reconciliation performed by pharmacy medication reconciliations theater technician and/or nursing. Patients Allergies have been reviewed. Allergies Allergies Coded Allergies No Known Drug Allergies (Unverified04/08/15) Past Trbhusb-Bdkcvx-Nihmpo Hx Patient Social History Marrital Status: Tobacco Use?: Yes Smoking Status: Never a Smoker Smokeless type used: Chew Smokeless Tobacco Frequency: Current Everyday User Use of E-Cig and/or Vaping dev: No Substance use?: No Alcohol Use?: Yes (h/o alcoholism 2-3 years ago) Alcohol type: Hard Liquor (1 pint in one setting weekly) Additional alcohol type: VODKA Alcohol Frequency: Couple times a week Pt feels they are or have been: No Immunizations Up To Date Date of Influenza Vaccine: Sep 01, 2022 First/Initial COVID19 Vaccinat: NO Second COVID19 Vaccination Slim: NO Tetanus Booster (TDap): Unknown Hepatitis A: No Hepatitis B: No Current Status Advance Directives: Unable to obtain Communicates: Verbally Primary Language: Turkish Preferred Spoken Language: Turkish Is interpretation needed?: No Implanted or Applied Medical D: None Past Medical History Surgeries: Abdominal (hiatal hernia repair), Orthopedic Currently Using BIPAP: Yes Hypertension Gastroesophageal Reflux, Diverticulosis (and diverticulitis), Hiatal Hernia (states "3 holes in esophagus" repaired during hiatal hernia repair) Degenerate Disk Disease, Chronic Back Pain Hearing Impairment: Hard of Hearing Anxiety, Depression Blood Disorders: No Family Medical History Heart Disease (father), Cancer (mother-lung cancer), Diabetes (father), Hypertension (father) Review of Systems Constitutional: see HPI Physical Exam Physical Exam Vital Signs Vital Signs - First Documented 02/19/23 02/20/23 19:52 04:20 Temp 36.8 Pulse 89 Resp 22 B/P (MAP) 148/104 (119) Pulse Ox 96 O2 Delivery Room Air FiO2 21 Capillary Refill : Less Than 3 Seconds Height, Weight, BMI Height: 0'67.00" Weight: 189lbs. oz. 85.620135mj; 26.92 BMI Method: General Appearance: No Apparent Distress, WD/WN Respiratory: Lungs Clear, No Accessory Muscle Use, No Respiratory Distress Cardiovascular: Regular Rate, Rhythm, No Murmur Gastrointestinal: Distended; No Guarding, No Rebound; Tenderness (diffuse but mild) Extremity: No Calf Tenderness, No Pedal Edema Neurologic/Psychiatric: Alert, Oriented x3 Skin: Normal Color, Warm/Dry Lymphatic: No Adenopathy Results Results/Procedures Labs Laboratory Tests 02/19/23 19:55 02/20/23 05:22 Patient resulted labs reviewed. Imaging: Reviewed Imaging Report Imaging [facility] [place], [place] NAME: TOM LLAMAS [facility] REC#: [id number] PT STATUS: REG ER : 1970 PHYSICIAN: DANIELLE LANGSTON MD ADMIT DATE: 02/19/23/ER Signed Date of Exam:02/19/23 CT ABDOMEN/PELVIS W PROCEDURE: CT abdomen and pelvis with contrast. TECHNIQUE: Multiple contiguous axial images were obtained through the abdomen and pelvis after administration of intravenous contrast. Auto Exposure Controls were utilized during the CT exam to meet ALARA standards for radiation dose reduction. All CT scans use one or more of the following dose optimizing techniques: automated exposure control, MA and/or KvP adjustment based on patient size and exam type or iterative reconstruction. INDICATION: 53-year-old male with generalized abdominal pain, left testicular pain. COMPARISONS: 11/07/2022 FINDINGS: Lung bases show small right effusion with bilateral lower lobe atelectatic infiltrates, right greater than left. There is moderate central venous congestion. Cardiac contour is upper limits of normal. There is a trace pericardial effusion. Liver shows uniform attenuation. Gallbladder is nondistended. Spleen and GE junction are normal. Stomach and duodenal sweep are unremarkable. Pancreas shows sharp margins. Adrenals are normal. Kidneys appear normal in size, position, and contour. There is minimal nonspecific bilateral perinephric stranding. There is symmetrical perfusion of contrast. There is no hydronephrosis or hydroureter. Both ureters are seen intermittently through their course and appear unremarkable. Partially filled bladder is also normal. Nonopacified loops of small bowel are normal. The appendix is unremarkable. Large bowel contains fecal material and gas. There is sigmoid diverticulosis with acute diverticulitis. There is a perforated diverticulum with free air. There is a 4.5 cm x 3.7 cm diverticular abscess in the low abdomen and pelvis adjacent to the sigmoid colon. Visualized vasculature shows nonaneurysmal aortic calcifications extending to the iliac and femoral arteries. Bone windows show some age-appropriate degenerative changes of lumbosacral spine. IMPRESSION: 1. Sigmoid diverticulosis with acute diverticulitis. There is a perforated diverticulum with free air in the abdomen. There is also a diverticular abscess measuring approximately 4.5 cm x 3.7 cm. 2. Bilateral bibasilar atelectatic infiltrates, right greater than left. Small right effusion seen. 3. Borderline cardiomegaly with trace pericardial effusion. 4. No evidence of cholecystitis, obstructive uropathy or appendicitis. Additional nonemergent findings as described above. Dictated by: Dictated on workstation # [id number] Dict: 02/19/232032 Trans: 02/19/232103 [id number] Interpreted by: SELINA LUNDBERG MD Electronically signed by: SELINA LUNDBERG MD 02/19/232103 Assessment/Plan Assessment and Plan Assess & Plan/Chief Complaint Diverticulitis with perforation Sepsis-POA Continue on IV abx Surgery primary- planning conservative management IV pain med NPO IVF fluids Elevated BP No history of HTN BP improved with pain control Trend Diagnosis/Problems Diagnosis/Problems (1) Diverticulitis of colon with perforation Status: Acute DAVE ETIENNE MD Feb 20, 2023 10:27 am
[2023-02-20] MEDS: POTASSIUM CL 10MEQ/50ML IVPB 50 ML IV SCH ×2 (18:31→20:02)
[2023-02-20] MEDS ORDERED: POTASSIUM CL 10MEQ/50ML IVPB 50 ML IV SCH (20:30)
[2023-02-21] VITALS (7 sets, daily range): BP systolic 131–155; BP diastolic 78–91
[2023-02-21] MEDS: POTASSIUM CL 10MEQ/50ML IVPB 50 ML IV SCH ×2 (03:21→03:22)
[2023-02-21] MEDS: NS IV 1000 ML 1,000 ML IV SCH (03:21)
[2023-02-21] MEDS: PIPERACILLIN SODIUM/TAZOBACTAM 4.5 GM in NS (IVPB) 100 ML IV SCH ×3 (04:27→20:30)
[2023-02-21] MEDS: HYDROmorphone 2 MG/ML VIAL (DILAUDID) IV PRN ×4 (05:33→20:37)
[2023-02-21 05:49] LABS: HEMATOCRIT 34 % (40-54); HEMOGLOBIN 11.4 g/dL (13.3-17.7); MEAN CORPUSCULAR HEMOGLOBIN 29 pg (25-34); MEAN CORPUSCULAR HGB CONC 33 g/dL (32-36); MEAN CORPUSCULAR VOLUME 87 fL (80-99); MEAN PLATELET VOLUME 9.5 fL (9.0-12.2); PLATELET COUNT 370 10^3/uL (130-400); WHITE BLOOD COUNT 13.6 10^3/uL (4.3-11.0)
[2023-02-21 06:08] LABS: POTASSIUM 3.5 MMOL/L (3.6-5.0)
[2023-02-21 06:09] LABS: CALCIUM 8.1 MG/DL (8.5-10.1)
[2023-02-21 06:13] LABS: CREATININE SERUM 0.76 MG/DL (0.60-1.30)
[2023-02-21 06:15] LABS: MAGNESIUM 1.6 MG/DL (1.6-2.4)
--- NOTE | 2023-02-21 07:12 | Progress Note - Surgery ---
SUSANNALIZY 02/21/23 0712: Subjective Date Seen by a Provider: Feb 21, 2023 Time Seen by a Provider: 06:50 Subjective/Events-last exam Pt is sleeping comfortably in bed. Pt states worsening of abd pain today with new onset RLQ pain. Pt states that the pain is a constant, 10/10, stabbing pain. Pt also continues to have pain in the RUQ with radiation into LLQ that is unchanged from yesterday. Movement still makes his pain worse. Pt also notes worsening of his nausea and SOB today. Pt states that he believes his abd to be more distended today as well. WBC today increased from yesterday at 13.6 from 11.1, but pt has remained afebrile. Pt needed consistent pain medication overnight and this morning, per nurse, but notes that pt asked to be "knocked out" due to him being hungry. Pt denies vomiting, CP, hematuria, chills, and BMs. Review of Systems General: No Chills, No Night Sweats HEENT: No Head Aches, No Eye Pain Pulmonary: Dyspnea (secondary to abd pain); No Cough Cardiovascular: No: Chest Pain, Palpitations Gastrointestinal: Nausea, Abdominal Pain (RUQ, LLQ, AND RLQ); No: Vomiting Genitourinary: No Dysuria, No Hematuria Musculoskeletal: No: neck pain, shoulder pain Neurological: No: Weakness, Numbness Focused Exam Lactate Level 02/19/23 19:55: Lactic Acid Level 1.42 02/20/23 05:22: Lactic Acid Level 0.61 Objective Exam Vital Signs Date Time Temp Pulse Resp B/P (MAP) Pulse Ox O2 Delivery O2 Flow Rate FiO2 02/21/23 05:31 36.8 81 16 138/87 (104) 93 Room Air 02/21/23 03:15 36.6 80 16 131/78 (95) 92 Room Air 02/21/23 01:00 80 02/20/23 23:48 36.4 70 16 139/75 (96) 93 Room Air 02/20/23 21:00 Room Air 02/20/23 20:02 36.7 67 16 123/73 (90) 92 Room Air 02/20/23 19:00 80 02/20/23 16:35 36.5 68 16 132/74 (93) 93 Room Air 02/20/23 13:00 75 02/20/23 11:19 36.8 83 18 125/75 (92) 92 Room Air 02/20/23 09:57 36.8 83 18 125/75 (92) 92 Room Air 02/20/23 08:14 36.9 82 18 123/75 (91) 91 Room Air 02/20/23 08:00 Room Air I & O 02/21/23 06:59 Intake Total 0 ml Output Total 1350 ml Balance -1350 ml Capillary Refill : Less Than 3 Seconds General Appearance: No Apparent Distress (resting comfortable in bed), WD/WN HEENT: PERRL/EOMI, Moist Mucous Membranes Neck: Non Tender, Supple Respiratory: Lungs Clear, Normal Breath Sounds, No Accessory Muscle Use, No Respiratory Distress Cardiovascular: Regular Rate, Rhythm, No Gallop, No Murmur Peripheral Pulses: 2+ Dorsalis Pedis (R), 2+ Left Dors-Pedis (L) Gastrointestinal: distended (worse than last exam), tenderness (RUQ, LLQ, and RLQ) Extremity: No Calf Tenderness, No Pedal Edema Neurologic/Psychiatric: Alert, Oriented x3 Skin: Normal Color, Warm/Dry Lymphatic: No Adenopathy Results Lab Laboratory Tests 02/21/23 05:30: White Blood Count 13.6H, Red Blood Count 3.90L, Hemoglobin 11.4L, Hematocrit 34L , Mean Corpuscular Volume 87, Mean Corpuscular Hemoglobin 29, Mean Corpuscular Hemoglobin Concent 33, Red Cell Distribution Width 13.4, Platelet Count 370, Mean Platelet Volume 9.5, Sodium Level 140, Potassium Level 3.5L, Chloride Level 108H, Carbon Dioxide Level 21, Anion Gap 11, Blood Urea Nitrogen 7, Creatinine 0.76, Estimat Glomerular Filtration Rate 106, BUN/Creatinine Ratio 9, Glucose Level 85, Calcium Level 8.1L, Magnesium Level 1.6 Assessment/Plan Assessment/Plan Assessment/Plan Perforated Diverticulitis - perforation with abscess and free air Diffuse Abd pain Nausea Leukocytosis -worse NPO IV Abx-Zosyn/Flagyl pain control IVF Radiology unable to place drain due to location. Pt having no peritoneal signs on exam today but increasing WBC, distension, and pain. Will continue to monitor for now, but surgical intervention may be needed. COLIN CORONA DO 02/21/23 1627: Subjective Subjective/Events-last exam Patient sleeping. Woken up. Pain minimal at this time. Nursing reporting patient sleeping most of the day. Wanting something to eat. Extremely hungry. WBC slight increase. Afebrile. Vitals stable. Some nausea. Denies emesis fever sweats chills or chest pain. Objective Exam General Appearance: No Apparent Distress (resting comfortable in bed), WD/WN HEENT: PERRL/EOMI, Normal ENT Inspection Neck: Non Tender, Supple Respiratory: Chest Non Tender, No Accessory Muscle Use, No Respiratory Distress Cardiovascular: Regular Rate, Rhythm, No JVD Gastrointestinal: soft, distended (minimal), tenderness (minimal tenderness with deep palpation, no peritonitis, LLQ) Extremity: No Calf Tenderness Neurologic/Psychiatric: Alert, Oriented x3 Skin: Normal Color, Warm/Dry Lymphatic: No Adenopathy Assessment/Plan Assessment/Plan Assessment/Plan Perforated Diverticulitis - perforation with abscess and free air Diffuse Abd pain Nausea Leukocytosis -worse NPO IV Abx-Zosyn/Flagyl pain control IVF Radiology unable to place drain due to location. Pt having no peritoneal signs on exam today but increasing WBC, distension, and pain. Will continue to monitor for now, but surgical intervention may be needed. By his exam currently he does not seem to have much pain, if exam or clinical change will take to OR. Sips of clears Supervisory-Addendum Brief Verification & Attestation Participated in pt care: history, MDM, physical Personally performed: exam, history, MDM, supervision of care Care discussed with: Medical Student Procedures: n/a Results interpretation: Verified all documentation Verification and Attestation of Medical Student E/M Service A medical student performed and documented this service in my presence. I reviewed and verified all information documented by the medical student and made modifications to such information, when appropriate. I personally performed the physical exam and medical decision making. Colin Corona, Feb 21, 2023,16:30 LIZY MULLINS Feb 21, 2023 07:12 COLIN CORONA DO Feb 21, 2023 16:27
[2023-02-21] MEDS: metroNIDAZOLE 500 MG/100 ML IVPB (PRE-MIX) IV SCH ×2 (09:26→20:31)
--- NOTE | 2023-02-21 10:29 | Progress Note - Hospitalist ---
Subjective HPI/CC On Admission Date Seen by Provider: Feb 21, 2023 Pt is a 53yoCM who presented to the ER due to abd pain. He is sleeping soundlya nd family memeber is at bedside who states this is the first he has slept all night. I attempted to wake him a couple of time and he answered a few questions but otherwise went quickly back to sleep. History is obtained mostly from the family member and records. She states he has had abd painf or about a week but 3 days ago it worsened significantly. He has had diverticulitis in the past but this was worse than that. He started vomiting as well. In the ER he was found to have a leukocytosis and CT Abd revealed sigmoid diverticulitis with perforation and abscess. He was admitted to surgery and I am consulted for medical management. Subjective/Events-last exam Pt reports persistent pain in abd. Discussed increasing WBC and plan to talk to Dr Corona. Family at bedside request examinationof ears due to difficulty hearing. Pt states he has been hard of hearing for well over a year. Focused Exam Lactate Level 02/19/23 19:55: Lactic Acid Level 1.42 02/20/23 05:22: Lactic Acid Level 0.61 Objective Exam Vital Signs Vital Signs Date Time Temp Pulse Resp B/P (MAP) Pulse Ox O2 Delivery O2 Flow Rate FiO2 02/21/23 08:00 Room Air 02/21/23 07:46 36.5 83 18 141/88 (105) 91 02/20/23 04:20 21 Capillary Refill : Less Than 3 Seconds General Appearance: No Apparent Distress HEENT: TMs Normal (no erythema, bulging, effusion noted) Cardiovascular: Regular Rate, Rhythm, No Murmur Gastrointestinal: Soft, Abnormal Bowel Sounds (quiet); No Distended, No Guarding, No Rebound; Tenderness (mild in lower abdomen) Neurologic/Psychiatric: Alert, Oriented x3 Results/Procedures Lab Laboratory Tests 02/21/23 05:30 Patient resulted labs reviewed. Imaging: Reviewed Imaging Report Assessment/Plan Assessment and Plan Assess & Plan/Chief Complaint Diverticulitis with perforation Sepsis-POA Continue on IV abx Surgery primary- planning conservative management Discussed with Dr Corona given elevated WBC- exam unchanged and not indica tive of acute abd- continue to monitor IV pain med NPO IVF fluids Change to 1/2 NS with KCL Elevated BP No history of HTN BP improved with pain control Trend, doing well presbycusis Recommended outpatient follow up for formal hearing exam Diagnosis/Problems Diagnosis/Problems (1) Diverticulitis of colon with perforation Status: Acute DAVE ETIENNE MD Feb 21, 2023 10:29
[2023-02-21] MEDS: 1/2 NS W/KCL 20 MEQ/L 1,000 ML IV SCH ×2 (11:55→20:30)
[2023-02-22] VITALS (7 sets, daily range): BP systolic 135–205; BP diastolic 78–124
[2023-02-22] MEDS: ONDANSETRON 4 MG/2 ML (SDV) Z0FRAN IV PRN ×2 (03:44→20:33)
[2023-02-22] MEDS: HYDROmorphone 2 MG/ML VIAL (DILAUDID) IV PRN ×6 (03:44→19:46)
[2023-02-22] MEDS: PIPERACILLIN SODIUM/TAZOBACTAM 4.5 GM in NS (IVPB) 100 ML IV SCH ×3 (03:45→19:46)
[2023-02-22 05:59] LABS: HEMATOCRIT 39 % (40-54); HEMOGLOBIN 12.7 g/dL (13.3-17.7); MEAN CORPUSCULAR HEMOGLOBIN 29 pg (25-34); MEAN CORPUSCULAR HGB CONC 33 g/dL (32-36); MEAN CORPUSCULAR VOLUME 88 fL (80-99); MEAN PLATELET VOLUME 10.5 fL (9.0-12.2); PLATELET COUNT 324 10^3/uL (130-400); WHITE BLOOD COUNT 11.8 10^3/uL (4.3-11.0)
[2023-02-22 06:14] LABS: POTASSIUM 3.7 MMOL/L (3.6-5.0)
[2023-02-22 06:15] LABS: CALCIUM 8.4 MG/DL (8.5-10.1)
[2023-02-22 06:20] LABS: CREATININE SERUM 0.79 MG/DL (0.60-1.30)
[2023-02-22] MEDS: 1/2 NS W/KCL 20 MEQ/L 1,000 ML IV SCH ×3 (06:48→20:25)
--- NOTE | 2023-02-22 07:24 | Progress Note - Surgery ---
ROGELIOJOCELYNELIZY Manzano 02/22/23 0724: Subjective Date Seen by a Provider: Feb 22, 2023 Time Seen by a Provider: 06:40 Subjective/Events-last exam Pt is sleeping comfortably in bed. Pt states no change in SOB or abd pain, still rating it a 10/10 constantly in the lower quadrants and RUQ quadrant. Pt needed less pain medication yesterday through the evening. Pt notes an isolated episode of emesis this morning. Per nurse, pt suddenly experienced nausea and had a small amount of clear watery emesis in the morning. Pt was given zofran and currently has no nausea and has not had any other episodes of emesis. Pt was progressed to clears and has been tolerating them besides the one isolated emesis. Pt notes that he has been experiencing chills overnight. WBC today decreased from yesterday at 11.8 from 13.6. Pt remains afebrile. No acute abd signs. Pt denies current nausea, CP, lightheadedness, worsening cough, BMs, hematuria, and dysuria. Review of Systems General: No Chills, No Night Sweats HEENT: No Head Aches, No Eye Pain Pulmonary: Dyspnea (unchanged); No Cough Cardiovascular: No: Chest Pain, Lt Headedness Gastrointestinal: Vomiting (x1 this morning), Abdominal Pain (Lower quadrants, RUQ; no change); No: Nausea Genitourinary: No Dysuria, No Hematuria Musculoskeletal: No: neck pain, shoulder pain Neurological: No: Weakness, Numbness Focused Exam Lactate Level 02/19/23 19:55: Lactic Acid Level 1.42 02/20/23 05:22: Lactic Acid Level 0.61 Objective Exam Vital Signs Date Time Temp Pulse Resp B/P (MAP) Pulse Ox O2 Delivery O2 Flow Rate FiO2 02/22/23 03:53 36.5 85 20 144/90 (108) 91 Room Air 02/22/23 01:00 70 02/21/23 23:06 36.7 78 18 143/82 (102) 91 Room Air 02/21/23 21:05 Room Air 02/21/23 20:10 Room Air 02/21/23 20:02 36.7 67 16 155/91 (112) 96 Room Air 02/21/23 19:00 85 02/21/23 15:44 36.4 65 16 141/80 (100) 95 Room Air 02/21/23 12:53 65 02/21/23 11:26 36.3 66 18 141/86 (104) 92 Room Air 02/21/23 11:12 92 Room Air 02/21/23 08:00 Room Air 02/21/23 07:46 36.5 83 18 141/88 (105) 91 Room Air I & O 02/22/23 07:00 Intake Total 1895 ml Output Total 2400 ml Balance -505 ml Capillary Refill : Less Than 3 Seconds General Appearance: No Apparent Distress (resting comfortable in bed), WD/WN HEENT: PERRL/EOMI, Moist Mucous Membranes Neck: Non Tender, Supple Respiratory: Lungs Clear, Normal Breath Sounds, No Accessory Muscle Use, No Respiratory Distress Cardiovascular: Regular Rate, Rhythm, No Gallop, No Murmur Peripheral Pulses: 2+ Dorsalis Pedis (R), 2+ Left Dors-Pedis (L) Gastrointestinal: soft, distended (minimal), tenderness (minimal tenderness with deep palpation, no peritonitis, lower quadrans and RUQ) Extremity: No Calf Tenderness, No Pedal Edema Neurologic/Psychiatric: Alert, Oriented x3 Skin: Normal Color, Warm/Dry Lymphatic: No Adenopathy Results Lab Laboratory Tests 02/22/23 05:43: White Blood Count 11.8H, Red Blood Count 4.39, Hemoglobin 12.7L, Hematocrit 39L, Mean Corpuscular Volume 88, Mean Corpuscular Hemoglobin 29, Mean Corpuscular Hemoglobin Concent 33, Red Cell Distribution Width 13.0, Platelet Count 324, Mean Platelet Volume 10.5, Sodium Level 139, Potassium Level 3.7, Chloride Level 105, Carbon Dioxide Level 22, Anion Gap 12, Blood Urea Nitrogen 6L, Creatinine 0.79, Estimat Glomerular Filtration Rate 105, BUN/Creatinine Ratio 8, Glucose Level 92, Calcium Level 8.4L Assessment/Plan Assessment/Plan Assessment/Plan Perforated Diverticulitis - perforation with abscess and free air Diffuse Abd pain Nausea Leukocytosis -improving IV Abx-Zosyn/Flagyl pain control IVF Pt having no peritoneal signs on exam today. Pt seems to have had an improvement in pain given the decrease need for pain medication yesterday and doesn't seem to have much pain on exam. Will continue to monitor for any exam or clinical changes. Sips of clears, DC if pt continues to experience nausea/vomiting Anti-emetics prn COLIN CORONA DO 02/22/23 1100: Subjective Subjective/Events-last exam Patient laying in bed in no acute distress. States pain is still present like it was, he states. Requiring less pain medication. Tolerating sips of clears. WBC down today. No fevers and vitals stable. Objective Exam General Appearance: No Apparent Distress (resting comfortable in bed), WD/WN, A nxious HEENT: PERRL/EOMI, Normal ENT Inspection Neck: Non Tender, Supple Respiratory: Chest Non Tender, No Accessory Muscle Use, No Respiratory Distress Cardiovascular: Regular Rate, Rhythm, No JVD Gastrointestinal: soft, distended (minimal), tenderness (minimal tenderness with deep palpation, no peritonitis, lower quadrans ) Extremity: Non Tender, No Calf Tenderness Neurologic/Psychiatric: Alert, Oriented x3 Skin: Normal Color, Warm/Dry Lymphatic: No Adenopathy Assessment/Plan Assessment/Plan Assessment/Plan Perforated Diverticulitis - perforation with abscess and free air Diffuse Abd pain improving Nausea Leukocytosis -improving IV Abx-Zosyn/Flagyl pain control IVF Pt having no peritoneal signs on exam today. Pt seems to have had an improvement in pain given the decrease need for pain medication yesterday and doesn't seem to have much pain on exam. Will continue to monitor for any exam or clinical changes. Sips of clears Anti-emetics prn If continues to improve will re-image soon. Discussed conservative measures and operative and will continue with conservative measures currently. Patient and family agree Supervisory-Addendum Brief Verification & Attestation Participated in pt care: history, MDM, physical Personally performed: exam, history, MDM, supervision of care Care discussed with: Medical Student Procedures: n/a Results interpretation: Verified all documentation Verification and Attestation of Medical Student E/M Service A medical student performed and documented this service in my presence. I reviewed and verified all information documented by the medical student and made modifications to such information, when appropriate. I personally performed the physical exam and medical decision making. Colin Corona Feb 22, 2023,11:00 LIZY MULLINS Feb 22, 2023 07:24 COLIN CORONA DO Feb 22, 2023 11:00
[2023-02-22] MEDS: metroNIDAZOLE 500 MG/100 ML IVPB (PRE-MIX) IV SCH ×2 (08:12→20:25)
--- NOTE | 2023-02-22 15:13 | Progress Note - Hospitalist ---
Subjective HPI/CC On Admission Date Seen by Provider: Feb 22, 2023 Pt is a 53yoCM who presented to the ER due to abd pain. He is sleeping soundlya nd family memeber is at bedside who states this is the first he has slept all night. I attempted to wake him a couple of time and he answered a few questions but otherwise went quickly back to sleep. History is obtained mostly from the family member and records. She states he has had abd painf or about a week but 3 days ago it worsened significantly. He has had diverticulitis in the past but this was worse than that. He started vomiting as well. In the ER he was found to have a leukocytosis and CT Abd revealed sigmoid diverticulitis with perforation and abscess. He was admitted to surgery and I am consulted for medical management. Subjective/Events-last exam Pt reports persistent pain. No new complaints though and pain about the same. Did have a large BM today. Didn't think it helped much with pain though. Focused Exam Lactate Level 02/19/23 19:55: Lactic Acid Level 1.42 02/20/23 05:22: Lactic Acid Level 0.61 Objective Exam Vital Signs Vital Signs Date Time Temp Pulse Resp B/P (MAP) Pulse Ox O2 Delivery O2 Flow Rate FiO2 02/22/23 12:54 74 02/22/23 11:18 36.4 18 135/82 (99) 91 Room Air 02/20/23 04:20 21 Capillary Refill : Less Than 3 Seconds General Appearance: No Apparent Distress Respiratory: Lungs Clear, No Respiratory Distress Cardiovascular: Regular Rate, Rhythm, No Murmur Neurologic/Psychiatric: Alert, Oriented x3 Results/Procedures Lab Laboratory Tests 02/22/23 05:43 Patient resulted labs reviewed. Imaging: Reviewed Imaging Report Assessment/Plan Assessment and Plan Assess & Plan/Chief Complaint Diverticulitis with perforation Sepsis-POA Continue on IV abx Surgery primary- planning conservative management WBC trending down IV pain regimen Clear Liquids IVF fluids Elevated BP No history of HTN BP improved with pain control Trend, doing well so far presbycusis Recommended outpatient follow up for formal hearing exam Diagnosis/Problems Diagnosis/Problems (1) Diverticulitis of colon with perforation Status: Acute DAVE ETIENNE MD Feb 22, 2023 15:12
[2023-02-22] MEDS ORDERED: LORazepam INJ 2 MG/ML (ATIVAN) VIAL IVP PRN (15:15)
[2023-02-22] MEDS: hydrALAZINE (APESOLINE) 20 MG/ML VIAL IV PRN (15:37)
[2023-02-22] MEDS: morphine INJ 4 MG/ML 1 ML (VIAL/SYRINGE) IV PRN (20:33)
[2023-02-23] VITALS (10 sets, daily range): BP systolic 127–181; BP diastolic 76–100
[2023-02-23] MEDS: morphine INJ 4 MG/ML 1 ML (VIAL/SYRINGE) IV PRN ×2 (01:46→21:31)
[2023-02-23] MEDS: PIPERACILLIN SODIUM/TAZOBACTAM 4.5 GM in NS (IVPB) 100 ML IV SCH ×3 (03:16→19:37)
[2023-02-23] MEDS: HYDROmorphone 2 MG/ML VIAL (DILAUDID) IV PRN ×5 (05:23→22:45)
[2023-02-23] MEDS: ONDANSETRON 4 MG/2 ML (SDV) Z0FRAN IV PRN ×4 (05:23→21:30)
--- NOTE | 2023-02-23 08:10 | Progress Note - Surgery ---
SUSANNALIZY 02/23/23 0810: Subjective Date Seen by a Provider: Feb 23, 2023 Time Seen by a Provider: 07:45 Subjective/Events-last exam Pt is sleeping comfortably in bed. Pt states that there is no change in his abd pain today but on exam, pt has no signs of peritonitis and has no reaction to light or deep palpation on exam, sleeps through most of abd exam. Pt notes worsening nausea and states that experienced 3 episodes of emesis yesterday. Pt denies sips of liquid exacerbating nausea or vomiting. SOB unchanged since last exam and reports chills through the night. Pt remains afebrile throughout night and today. Pt had a large, non-bloody BM yesterday. Pt continues to void without issue. Pt stated to nurse yesterday that he does not feel like he needs nicotine patch as he uses chew once weekly and "can go without whenever". Pt remains afebrile. Pt denies cough, new CP, lightheadedness, urinary symptoms, and weakness. Review of Systems General: No Chills, No Night Sweats HEENT: No Head Aches, No Eye Pain Pulmonary: Dyspnea (unchanged); No Cough Cardiovascular: No: Chest Pain, Orthopnea Gastrointestinal: Nausea, Vomiting (x3 yesterday), Abdominal Pain (lower quadrants) Genitourinary: No Dysuria, No Hematuria Musculoskeletal: No: neck pain, shoulder pain Neurological: No: Weakness, Numbness Objective Exam Vital Signs Date Time Temp Pulse Resp B/P (MAP) Pulse Ox O2 Delivery O2 Flow Rate FiO2 02/23/23 07:15 37.0 67 18 158/100 (119) 91 Room Air 02/23/23 03:32 37.0 71 18 162/88 (112) 94 Room Air 02/23/23 00:42 36.4 74 91 21 02/22/23 23:16 36.2 78 16 149/91 (110) 92 Room Air 02/22/23 20:48 Room Air 02/22/23 19:40 36.8 67 20 170/90 (116) 96 Room Air 02/22/23 17:00 81 16 156/95 (115) 95 Room Air 02/22/23 15:10 36.3 66 20 205/124 (151) 95 Room Air 02/22/23 12:54 74 02/22/23 11:18 36.4 73 18 135/82 (99) 91 Room Air 02/22/23 09:44 92 Room Air I & O 02/23/23 07:00 Intake Total 1920 ml Output Total 3300 ml Balance -1380 ml Capillary Refill : Less Than 3 Seconds General Appearance: No Apparent Distress, WD/WN HEENT: PERRL/EOMI, Moist Mucous Membranes Neck: Non Tender, Supple Respiratory: Lungs Clear, Normal Breath Sounds, No Accessory Muscle Use, No Respiratory Distress Cardiovascular: Regular Rate, Rhythm, No Gallop, No Murmur Peripheral Pulses: 2+ Dorsalis Pedis (R), 2+ Left Dors-Pedis (L) Gastrointestinal: soft; No distended; tenderness (minimal tenderness with deep palpation, no peritonitis, lower quadrants - improved from last exam) Extremity: No Calf Tenderness, No Pedal Edema Neurologic/Psychiatric: Alert, Oriented x3 Skin: Normal Color, Warm/Dry Lymphatic: No Adenopathy Assessment/Plan Assessment/Plan Assessment/Plan Perforated Diverticulitis - perforation with abscess and free air Diffuse Abd pain- improving Nausea Vomiting Leukocytosis -improving IV Abx-Zosyn/Flagyl pain control IVF No peritoneal signs on exam today. Improvement of pain, abd distention, very minimal pain on exam. Will continue to monitor for any exam or clinical changes. Will continue conservative measures, pt and family in agreement Sips of clears Anti-emetics prn Repeat imaging tomorrow Nicotine patch prn [facility]WA protocol COLIN CORONA DO 02/23/23 0953: Subjective Subjective/Events-last exam Patient laying in bed. States about the same. Had bm. Some nausea/emesis yesterday, better now. At times agitated. Patient from family is significant drinker. WBC improving. Objective Exam General Appearance: No Apparent Distress, WD/WN HEENT: PERRL/EOMI, Normal ENT Inspection Neck: Non Tender, Supple Respiratory: Chest Non Tender, No Accessory Muscle Use, No Respiratory Distress Cardiovascular: Regular Rate, Rhythm, No JVD Gastrointestinal: soft; No distended; tenderness (minimal tenderness with deep palpation, no peritonitis, lower quadrants - same to improved from last exam) Extremity: No Calf Tenderness Neurologic/Psychiatric: Alert, Oriented x3 Skin: Normal Color, Warm/Dry Lymphatic: No Adenopathy Assessment/Plan Assessment/Plan Assessment/Plan Perforated Diverticulitis - perforation with abscess and free air Diffuse Abd pain- improving Nausea Vomiting Leukocytosis -improving IV Abx-Zosyn/Flagyl pain control IVF No peritoneal signs on exam today. Improvement of pain, abd distention, very minimal pain on exam. Will continue to monitor for any exam or clinical changes. Will continue conservative measures, pt and family in agreement Clears Anti-emetics Nicotine patch prn [facility]WA protocol Supervisory-Addendum Brief Verification & Attestation Participated in pt care: history, MDM, physical Personally performed: exam, history, MDM, supervision of care Care discussed with: Medical Student Procedures: n/a Results interpretation: Verified all documentation Verification and Attestation of Medical Student E/M Service A medical student performed and documented this service in my presence. I reviewed and verified all information documented by the medical student and made modifications to such information, when appropriate. I personally performed the physical exam and medical decision making. Colin Corona Feb 23, 2023,09:53 LIZY MULLINS Feb 23, 2023 08:10 COLIN CORONA DO Feb 23, 2023 09:53
[2023-02-23] MEDS: metroNIDAZOLE 500 MG/100 ML IVPB (PRE-MIX) IV SCH (08:46)
[2023-02-23] MEDS: 1/2 NS W/KCL 20 MEQ/L 1,000 ML IV SCH ×2 (08:46→20:32)
[2023-02-23] MEDS: NICOTINE 21 MG (NICODERM) PATCH TD SCH (08:51)
[2023-02-23 09:08] LABS: HEMATOCRIT 40 % (40-54); HEMOGLOBIN 13.1 g/dL (13.3-17.7); MEAN CORPUSCULAR HEMOGLOBIN 29 pg (25-34); MEAN CORPUSCULAR HGB CONC 33 g/dL (32-36); MEAN CORPUSCULAR VOLUME 87 fL (80-99); MEAN PLATELET VOLUME 9.2 fL (9.0-12.2); PLATELET COUNT 416 10^3/uL (130-400); WHITE BLOOD COUNT 9.2 10^3/uL (4.3-11.0)
[2023-02-23 09:27] LABS: CALCIUM 8.8 MG/DL (8.5-10.1); CREATININE SERUM 0.81 MG/DL (0.60-1.30); MAGNESIUM 1.7 MG/DL (1.6-2.4); POTASSIUM 3.6 MMOL/L (3.6-5.0)
[2023-02-23] MEDS ORDERED: 1/2 NS IV SOLUTION 1,000 ML IV PRN (09:30)
[2023-02-23] MEDS ORDERED: ANTACID SUSP 30 ML UDC (MYLANTA) PO PRN (09:30)
[2023-02-23] MEDS ORDERED: ONDANSETRON 4 MG (ZOFRAN) ORAL DISSOLVE TAB SL PRN (09:30)
[2023-02-23] MEDS ORDERED: D5 1/2 NS 1000 ML IV SOLUTION 1,000 ML IV PRN (09:30)
[2023-02-23] MEDS ORDERED: LORazepam INJ 2 MG/ML (ATIVAN) VIAL IV PRN (09:30)
[2023-02-23] MEDS ORDERED: LORazepam INJ 2 MG/ML (ATIVAN) VIAL IM/IV PRN (09:30)
[2023-02-23] MEDS ORDERED: ONDANSETRON 4 MG/2 ML (SDV) Z0FRAN IV PRN (09:30)
--- NOTE | 2023-02-23 10:35 | Progress Note - Hospitalist ---
Subjective HPI/CC On Admission Date Seen by Provider: Feb 23, 2023 Pt is a 53yoCM who presented to the ER due to abd pain. He is sleeping soundlya nd family memeber is at bedside who states this is the first he has slept all night. I attempted to wake him a couple of time and he answered a few questions but otherwise went quickly back to sleep. History is obtained mostly from the family member and records. She states he has had abd painf or about a week but 3 days ago it worsened significantly. He has had diverticulitis in the past but this was worse than that. He started vomiting as well. In the ER he was found to have a leukocytosis and CT Abd revealed sigmoid diverticulitis with perforation and abscess. He was admitted to surgery and I am consulted for medical management. Subjective/Events-last exam Pt reports persistent pain. No new complaints. Getting blood drawn while I was in the room. Objective Exam Vital Signs Vital Signs Date Time Temp Pulse Resp B/P (MAP) Pulse Ox O2 Delivery O2 Flow Rate FiO2 02/23/23 08:19 37.0 67 91 21 02/23/23 08:17 Room Air 0.00 02/23/23 07:15 18 158/100 (119) Capillary Refill : Less Than 3 Seconds General Appearance: No Apparent Distress Respiratory: Lungs Clear, No Respiratory Distress Cardiovascular: Regular Rate, Rhythm Gastrointestinal: Soft, Abnormal Bowel Sounds (present but quiet), Tenderness (diffuse- slightly more so today) Neurologic/Psychiatric: Alert, Oriented x3 Results/Procedures Lab Laboratory Tests 02/23/23 09:03 Patient resulted labs reviewed. Imaging: Reviewed Imaging Report Assessment/Plan Assessment and Plan Assess & Plan/Chief Complaint Diverticulitis with perforation Sepsis-POA Continue on IV abx Surgery primary- planning conservative management Leukocytosis resolved IV pain regimen Clear Liquids IVF fluids Elevated BP No history of HTN BP up yesterday with pain Hydralazine prn ordered Improved today presbycusis Recommended outpatient follow up for formal hearing exam DVT ppx: Lovenox Diagnosis/Problems Diagnosis/Problems (1) Diverticulitis of colon with perforation Status: Acute DAVE ETIENNE MD Feb 23, 2023 10:35
[2023-02-23] MEDS: ENOXAPARIN 40 MG/0.4 ML (LOVENOX) SYR SQ SCH (11:26)
[2023-02-23] MEDS: hydrALAZINE (APESOLINE) 20 MG/ML VIAL IV PRN (13:24)
[2023-02-23] MEDS: metroNIDAZOLE 500MG/100ML IVPB 100 ML IV SCH ×2 (17:33→22:32)
[2023-02-23] MEDS: LORazepam 1 MG (ATIVAN) TAB PO PRN (20:32)
[2023-02-24] MEDS: PIPERACILLIN SODIUM/TAZOBACTAM 4.5 GM in NS (IVPB) 100 ML IV SCH ×3 (03:08→19:38)
[2023-02-24 03:17] VITALS: BP 97/54
[2023-02-24] MEDS: HYDROmorphone 2 MG/ML VIAL (DILAUDID) IV PRN (05:24)
[2023-02-24 05:41] LABS: HEMATOCRIT 41 % (40-54); HEMOGLOBIN 13.6 g/dL (13.3-17.7); MEAN CORPUSCULAR HEMOGLOBIN 29 pg (25-34); MEAN CORPUSCULAR HGB CONC 33 g/dL (32-36); MEAN CORPUSCULAR VOLUME 87 fL (80-99); MEAN PLATELET VOLUME 9.5 fL (9.0-12.2); PLATELET COUNT 443 10^3/uL (130-400)
[2023-02-24] MEDS: metroNIDAZOLE 500MG/100ML IVPB 100 ML IV SCH ×3 (05:51→23:33)
[2023-02-24] MEDS: LORazepam 1 MG (ATIVAN) TAB PO PRN ×3 (05:51→19:37)
[2023-02-24 05:57] LABS: CALCIUM 8.7 MG/DL (8.5-10.1)
[2023-02-24] MEDS: morphine INJ 4 MG/ML 1 ML (VIAL/SYRINGE) IV PRN ×6 (05:57→20:50)
[2023-02-24 06:01] LABS: CREATININE SERUM 0.86 MG/DL (0.60-1.30)
[2023-02-24 06:03] LABS: MAGNESIUM 1.8 MG/DL (1.6-2.4)
[2023-02-24 07:16] VITALS: BP 112/70
--- NOTE | 2023-02-24 07:35 | Progress Note - Surgery ---
Subjective Date Seen by a Provider: Feb 24, 2023 Time Seen by a Provider: 07:33 Subjective/Events-last exam Patient sleeping in bed. Does not seem uncomfortable. Still having pain in LLQ. WBC down to 9. Tolerating clears. Denies n/v fever sweats chills shortness of breath or chest pain. Objective Exam Vital Signs Date Time Temp Pulse Resp B/P (MAP) Pulse Ox O2 Delivery O2 Flow Rate FiO2 02/24/23 07:16 36.6 81 24 112/70 (84) 89 Room Air 02/24/23 03:17 37.0 86 14 97/54 (68) 94 Nasal Cannula 2.00 02/24/23 01:00 90 02/23/23 23:10 37.1 91 20 127/76 (93) 96 Nasal Cannula 2.00 02/23/23 19:45 Room Air 02/23/23 19:44 36.6 76 16 174/93 (120) 93 Room Air 02/23/23 19:00 75 02/23/23 15:59 36.9 90 16 137/88 (104) 93 Room Air 02/23/23 13:53 72 146/96 (113) 95 Room Air 02/23/23 13:20 181/96 (124) 02/23/23 12:35 74 02/23/23 11:30 36.2 73 18 173/98 (123) 93 Room Air 02/23/23 08:19 37.0 67 91 21 02/23/23 08:17 Room Air 0.00 02/23/23 08:00 Room Air I & O 02/24/23 07:00 Intake Total 1440 ml Output Total 1500 ml Balance -60 ml Capillary Refill : Less Than 3 Seconds General Appearance: No Apparent Distress, WD/WN HEENT: PERRL/EOMI, Normal ENT Inspection Neck: Non Tender, Supple Respiratory: Lungs Clear, No Respiratory Distress Cardiovascular: Regular Rate, Rhythm, No JVD Peripheral Pulses: 2+ Dorsalis Pedis (R), 2+ Left Dors-Pedis (L) Gastrointestinal: soft; No distended; tenderness (minimal tenderness with deep palpation, no peritonitis, left lower quadrants ) Extremity: No Calf Tenderness Neurologic/Psychiatric: Alert, Oriented x3 Skin: Normal Color, Warm/Dry Lymphatic: No Adenopathy Results Lab Laboratory Tests 02/23/23 09:03: White Blood Count 9.2, Red Blood Count 4.58, Hemoglobin 13.1L, Hematocrit 40, Mean Corpuscular Volume 87, Mean Corpuscular Hemoglobin 29, Mean Corpuscular Hemoglobin Concent 33, Red Cell Distribution Width 13.2, Platelet Count 416H, Mean Platelet Volume 9.2, Sodium Level 139, Potassium Level 3.6, Chloride Level 105, Carbon Dioxide Level 22, Anion Gap 12, Blood Urea Nitrogen 5L, Creatinine 0.81, Estimat Glomerular Filtration Rate 104, BUN/Creatinine Ratio 6, Glucose Level 113H, Calcium Level 8.8, Magnesium Level 1.7 02/23/23 14:33: Troponin I < 0.028 02/24/23 05:17: White Blood Count 9.0, Red Blood Count 4.68, Hemoglobin 13.6, Hematocrit 41, Mean Corpuscular Volume 87, Mean Corpuscular Hemoglobin 29, Mean Corpuscular Hemoglobin Concent 33, Red Cell Distribution Width 13.3, Platelet Count 443H, Mean Platelet Volume 9.5, Sodium Level 139, Potassium Level 4.0, Chloride Level 108H, Carbon Dioxide Level 22, Anion Gap 9, Blood Urea Nitrogen 7, Creatinine 0.86, Estimat Glomerular Filtration Rate 102, BUN/Creatinine Ratio 8, Glucose Level 88, Calcium Level 8.7, Magnesium Level 1.8 Assessment/Plan Assessment/Plan Assessment/Plan Perforated Diverticulitis - perforation with abscess and free air Diffuse Abd pain- improving Nausea Vomiting Leukocytosis -improving IV Abx-Zosyn/Flagyl pain control IVF No peritoneal signs, very minimal pain on exam. Will continue to monitor for any exam or clinical changes. Will continue conservative measures, pt and family in agreement Clears Anti-emetics Nicotine patch prn CIWA protocol Ct abd/pelvis tomorrow. COLIN HAQ DO Feb 24, 2023 07:35
[2023-02-24] MEDS: 1/2 NS W/KCL 20 MEQ/L 1,000 ML IV SCH ×3 (09:05→19:41)
[2023-02-24] MEDS: NICOTINE 21 MG (NICODERM) PATCH TD SCH (09:06)
[2023-02-24] MEDS: NICOTINE PATCH REMOVAL TP SCH (09:09)
[2023-02-24] MEDS: ENOXAPARIN 40 MG/0.4 ML (LOVENOX) SYR SQ SCH (09:40)
--- NOTE | 2023-02-24 10:18 | Progress Note - Hospitalist ---
Subjective HPI/CC On Admission Date Seen by Provider: Feb 24, 2023 Pt is a 53yoCM who presented to the ER due to abd pain. He is sleeping soundlya nd family memeber is at bedside who states this is the first he has slept all night. I attempted to wake him a couple of time and he answered a few questions but otherwise went quickly back to sleep. History is obtained mostly from the family member and records. She states he has had abd painf or about a week but 3 days ago it worsened significantly. He has had diverticulitis in the past but this was worse than that. He started vomiting as well. In the ER he was found to have a leukocytosis and CT Abd revealed sigmoid diverticulitis with perforation and abscess. He was admitted to surgery and I am consulted for medical management. Subjective/Events-last exam Pt sleeping soundly. at bedside states pain is improving. States he just feel asleep and requests to let him keep sleeping. Objective Exam Vital Signs Vital Signs Date Time Temp Pulse Resp B/P (MAP) Pulse Ox O2 Delivery O2 Flow Rate FiO2 02/24/23 07:45 96 Room Air 0.00 02/24/23 07:16 36.6 81 24 112/70 (84) 02/23/23 08:19 21 Capillary Refill : Less Than 3 Seconds General Appearance: No Apparent Distress, Other (sleeping soundly) Respiratory: Lungs Clear, No Accessory Muscle Use Cardiovascular: Regular Rate, Rhythm, No Murmur Gastrointestinal: Soft, Abnormal Bowel Sounds (quiet) Results/Procedures Lab Laboratory Tests 02/24/23 05:17 Patient resulted labs reviewed. Imaging: Reviewed Imaging Report Assessment/Plan Assessment and Plan Assess & Plan/Chief Complaint Diverticulitis with perforation Sepsis-POA Continue on IV abx Surgery primary- planning conservative management Leukocytosis resolved IV pain regimen Clear Liquids IVF fluids Elevated BP No history of HTN BP trends up when pain uncontrolled Hydralazine prn ordered Much improved today presbycusis Recommended outpatient follow up for formal hearing exam DVT ppx: Lovenox Will round prn,please for any concerns Diagnosis/Problems Diagnosis/Problems (1) Diverticulitis of colon with perforation Status: DAVE Murray MD Feb 24, 2023 10:18 am
[2023-02-24 11:03] VITALS: BP 142/86
[2023-02-24 15:42] VITALS: BP 134/79
[2023-02-24 19:43] VITALS: BP 136/93
[2023-02-25 00:15] VITALS: BP 138/79
[2023-02-25 04:00] VITALS: BP 126/75
[2023-02-25] MEDS: PIPERACILLIN SODIUM/TAZOBACTAM 4.5 GM in NS (IVPB) 100 ML IV SCH ×3 (04:45→21:40)
[2023-02-25 05:57] LABS: HEMATOCRIT 39 % (40-54); HEMOGLOBIN 13.1 g/dL (13.3-17.7); MEAN CORPUSCULAR HEMOGLOBIN 30 pg (25-34); MEAN CORPUSCULAR HGB CONC 33 g/dL (32-36); MEAN CORPUSCULAR VOLUME 89 fL (80-99); MEAN PLATELET VOLUME 9.7 fL (9.0-12.2); PLATELET COUNT 423 10^3/uL (130-400); WHITE BLOOD COUNT 7.7 10^3/uL (4.3-11.0)
[2023-02-25] MEDS: metroNIDAZOLE 500MG/100ML IVPB 100 ML IV SCH ×3 (06:08→23:46)
[2023-02-25 06:14] LABS: CALCIUM 8.8 MG/DL (8.5-10.1); CREATININE SERUM 0.95 MG/DL (0.60-1.30); MAGNESIUM 1.9 MG/DL (1.6-2.4)
--- NOTE | 2023-02-25 06:34 | Progress Note - Surgery ---
SUSANNALIZY 02/25/23 0634: Subjective Date Seen by a Provider: Feb 25, 2023 Time Seen by a Provider: 06:15 Subjective/Events-last exam Pt is sleeping comfortably in bed. Pt reports improvement of abd pain today, noting that it feels sore this morning. Minimal tenderness with palpation of abd today. No peritoneal signs. Pt states resolution of SOB and nausea today. Pt has been tolerating clears without issue. Pt continues to void without issue. Pt had a non-bloody BM yesterday. WBC decreased today at 7.7 from 9.0. Pt remains afebrile. CT abd./pelvis showed slight decrease in abscess size when compared with previous imaging (3.3cm today, 4.3cm on prior imaging). Pneumoperitoneum also decreased. Pt denies nausea, vomiting, CP, hematuria, lightheadedness, and chills. CT abd/pelvis: IMPRESSION: There has been mild decrease in size of the gas and fluid collection in the midline pelvis when compared with prior CT from 6 days earlier. There continues to be a pneumoperitoneum however this has decreased as well. Continued follow-up is recommended. Review of Systems General: No Chills, No Night Sweats HEENT: No Head Aches, No Eye Pain Pulmonary: No Dyspnea, No Cough Cardiovascular: No: Chest Pain, Lt Headedness Gastrointestinal: Abdominal Pain (improved); No: Nausea, Vomiting Genitourinary: No Dysuria, No Hematuria Musculoskeletal: No: neck pain, shoulder pain Neurological: No: Weakness, Numbness Objective Exam Vital Signs Date Time Temp Pulse Resp B/P (MAP) Pulse Ox O2 Delivery O2 Flow Rate FiO2 02/25/23 04:00 36.5 74 16 126/75 (92) 98 Room Air 02/25/23 01:00 67 02/25/23 00:15 36.8 68 16 138/79 (98) 96 Nasal Cannula 1.50 02/24/23 22:13 96 Nasal Cannula 2.00 02/24/23 19:45 Nasal Cannula 1.50 02/24/23 19:43 36.6 69 16 136/93 (107) 98 Nasal Cannula 1.50 02/24/23 19:04 97 Nasal Cannula 2.00 02/24/23 19:00 71 02/24/23 15:42 36.3 70 16 134/79 (97) 97 Nasal Cannula 1.50 02/24/23 14:38 97 Nasal Cannula 2.00 02/24/23 12:34 74 02/24/23 11:03 36.3 66 20 142/86 (104) 93 Room Air 02/24/23 11:01 93 Room Air 0.00 02/24/23 08:00 Room Air 02/24/23 07:45 96 Room Air 0.00 02/24/23 07:16 36.6 81 24 112/70 (84) 89 Room Air 02/24/23 07:00 82 I & O 02/25/23 07:00 Intake Total 2570 ml Output Total 4400 ml Balance -1830 ml Capillary Refill : Less Than 3 Seconds General Appearance: No Apparent Distress, Other (sleeping soundly) HEENT: PERRL/EOMI, Moist Mucous Membranes Neck: Non Tender, Supple Respiratory: Lungs Clear, Normal Breath Sounds, No Accessory Muscle Use Cardiovascular: Regular Rate, Rhythm, No Gallop, No Murmur Peripheral Pulses: 2+ Dorsalis Pedis (R), 2+ Left Dors-Pedis (L) Gastrointestinal: soft; No distended; tenderness (minimal tenderness with deep palpation, no peritonitis, left lower quadrants ) Extremity: No Calf Tenderness Neurologic/Psychiatric: Alert, Oriented x3 Skin: Normal Color, Warm/Dry Lymphatic: No Adenopathy Results Lab Laboratory Tests 02/25/23 05:41: White Blood Count 7.7, Red Blood Count 4.44, Hemoglobin 13.1L, Hematocrit 39L, Mean Corpuscular Volume 89, Mean Corpuscular Hemoglobin 30, Mean Corpuscular Hemoglobin Concent 33, Red Cell Distribution Width 13.5, Platelet Count 423H, Mean Platelet Volume 9.7, Sodium Level 142, Potassium Level 4.0, Chloride Level 108H, Carbon Dioxide Level 21, Anion Gap 13, Blood Urea Nitrogen 11, Creatinine 0.95, Estimat Glomerular Filtration Rate 95, BUN/Creatinine Ratio 12, Glucose Level 94, Calcium Level 8.8, Magnesium Level 1.9 Radiology Date of Exam:02/25/23 CT ABDOMEN/PELVIS WO PROCEDURE: CT abdomen and pelvis without contrast. TECHNIQUE: Multiple contiguous axial images were obtained through the abdomen and pelvis without the use of intravenous contrast. Auto Exposure Controls were utilized during the CT exam to meet ALARA standards for radiation dose reduction. INDICATION: Imaging through the lung bases does show a small right pleural effusion and trace left pleural effusion with bibasilar infiltrates or atelectasis. This appears to be slightly increased since prior CT. Liver and gallbladder are unremarkable. Pancreas and spleen are unremarkable. No adrenal mass is detected. Kidneys are unremarkable. Pneumoperitoneum persists but may be slightly decreased when compared with prior CT. The small gas and fluid collection in the midline pelvis adjacent to the sigmoid has decreased in size measuring 3.3 cm AP compared with 4.3 cm on prior. No new fluid collection is identified. The degree of inflammation adjacent to the sigmoid does appear to be improved. There is no bowel obstruction. The bladder and prostate are unremarkable. IMPRESSION: There has been mild decrease in size of the gas and fluid collection in the midline pelvis when compared with prior CT from 6 days earlier. There continues to be a pneumoperitoneum however this has decreased as well. Continued follow-up is recommended. Dictated on workstation # [id number] Dict: 02/25/23 0950 Trans: 02/25/23 1027 [facility] [id number] Interpreted by: SYLVESTER KAPOOR MD Electronically signed by: Assessment/Plan Assessment/Plan Assessment/Plan Perforated Diverticulitis - perforation with abscess and free air Diffuse Abd pain- improving Nausea-resolved Vomiting Leukocytosis -resolved IV Abx-Zosyn/Flagyl pain control IVF No peritoneal signs, very minimal pain on exam. CT abd/pelvis today showed decrease in abscess size and decreased free air in abd. Will continue to monitor for any exam or clinical changes. Will continue conservative measures, pt and family in agreement Clears Anti-emetics Nicotine patch prn CIWA protocol COLIN CORONA DO 02/25/23 1253: Subjective Subjective/Events-last exam Patient feeling better. Less pain today. Feeling better and wanting to go ho me. Wbc improving. He states using less pain medication. Ct scan showing decreasing size of abscess and amount of free air. Denies n/v fever sweats chills shortness of breath or chest pain. Objective Exam General Appearance: No Apparent Distress, WD/WN HEENT: PERRL/EOMI, Normal ENT Inspection Neck: Non Tender, Supple Respiratory: Chest Non Tender, No Accessory Muscle Use, No Respiratory Distress Cardiovascular: Regular Rate, Rhythm, No JVD Gastrointestinal: soft, tenderness (minimal tenderness with deep palpation, no peritonitis, left lower quadrant) Neurologic/Psychiatric: Alert, Oriented x3 Skin: Normal Color, Warm/Dry Lymphatic: No Adenopathy Assessment/Plan Assessment/Plan Assessment/Plan Perforated Diverticulitis - perforation with abscess and free air Diffuse Abd pain- improving Nausea-resolved Vomiting Leukocytosis -resolved IV Abx-Zosyn/Flagyl pain control IVF No peritoneal signs, very minimal pain on exam. CT abd/pelvis today showed decrease in abscess size and decreased free air in abd. Will continue to monitor for any exam or clinical changes. Will continue conservative measures, pt and family in agreement Clears Anti-emetics Nicotine patch prn CIWA protocol Patient wanting to go home, home soon. Will need colonoscopy about 8 weeks after resolution of symptoms. Supervisory-Addendum Brief Verification & Attestation Participated in pt care: history, MDM, physical Personally performed: exam, history, MDM, supervision of care Care discussed with: Medical Student Procedures: n/a Results interpretation: Verified all documentation Verification and Attestation of Medical Student E/M Service A medical student performed and documented this service in my presence. I reviewed and verified all information documented by the medical student and made modifications to such information, when appropriate. I personally performed the physical exam and medical decision making. oClin Corona Feb 25, 2023,12:53 LIZY MULLINS Feb 25, 2023 06:34 COLIN CORONA DO Feb 25, 2023 12:53
[2023-02-25 07:41] VITALS: BP 123/71
[2023-02-25] MEDS: NICOTINE PATCH REMOVAL TP SCH (09:11)
[2023-02-25] MEDS: NICOTINE 21 MG (NICODERM) PATCH TD SCH (09:11)
--- NOTE | 2023-02-25 10:27 | Diagnostic Imaging Report ---
PROCEDURE: CT abdomen and pelvis without contrast. TECHNIQUE: Multiple contiguous axial images were obtained through the abdomen and pelvis without the use of intravenous contrast. Auto Exposure Controls were utilized during the CT exam to meet ALARA standards for radiation dose reduction. INDICATION: Imaging through the lung bases does show a small right pleural effusion and trace left pleural effusion with bibasilar infiltrates or atelectasis. This appears to be slightly increased since prior CT. Liver and gallbladder are unremarkable. Pancreas and spleen are unremarkable. No adrenal mass is detected. Kidneys are unremarkable. Pneumoperitoneum persists but may be slightly decreased when compared with prior CT. The small gas and fluid collection in the midline pelvis adjacent to the sigmoid has decreased in size measuring 3.3 cm AP compared with 4.3 cm on prior. No new fluid collection is identified. The degree of inflammation adjacent to the sigmoid does appear to be improved. There is no bowel obstruction. The bladder and prostate are unremarkable. IMPRESSION: There has been mild decrease in size of the gas and fluid collection in the midline pelvis when compared with prior CT from 6 days earlier. There continues to be a pneumoperitoneum however this has decreased as well. Continued follow-up is recommended. Dictated by: Dictated on workstation # [id number]
[2023-02-25 12:00] VITALS: BP 125/75
[2023-02-25] MEDS: ENOXAPARIN 40 MG/0.4 ML (LOVENOX) SYR SQ SCH (13:17)
[2023-02-25] MEDS: HYDROcodone/APAP 5 MG/325 MG (LORTAB) TAB PO PRN ×2 (14:01→21:40)
[2023-02-25 15:28] VITALS: BP 150/88
[2023-02-25 21:00] VITALS: BP 147/82
[2023-02-26 01:00] VITALS: BP 158/79
[2023-02-26] MEDS: PIPERACILLIN SODIUM/TAZOBACTAM 4.5 GM in NS (IVPB) 100 ML IV SCH (04:52)
[2023-02-26 04:55] VITALS: BP 142/83
[2023-02-26] MEDS: metroNIDAZOLE 500MG/100ML IVPB 100 ML IV SCH (05:29)
--- NOTE | 2023-02-26 07:19 | Progress Note - Surgery ---
SUSANNALIZY 02/26/23 0719: Subjective Date Seen by a Provider: Feb 26, 2023 Time Seen by a Provider: 07:00 Subjective/Events-last exam Pt sitting up in bed comfortably. Pt states that he currently has no abd pain. No tenderness on palpation of abd. Tolerating clears without issue. Voiding w ithout issue and is able to ambulate to bathroom by himself. Pt has no complaints at this time. Pt asks if he can go home today. Denies nausea, vomiting, CP, SOB, chills, and fevers. Review of Systems General: No Chills, No Night Sweats HEENT: No Head Aches, No Eye Pain Pulmonary: No Dyspnea, No Cough Cardiovascular: No: Chest Pain, Lt Headedness Gastrointestinal: No: Nausea, Vomiting, Abdominal Pain Genitourinary: No Dysuria, No Hematuria Musculoskeletal: No: neck pain, shoulder pain Neurological: No: Weakness, Numbness Objective Exam Vital Signs Date Time Temp Pulse Resp B/P (MAP) Pulse Ox O2 Delivery O2 Flow Rate FiO2 02/26/23 07:11 95 Room Air 02/26/23 04:55 36.6 72 20 142/83 (102) 96 Room Air 02/26/23 01:00 36.8 59 20 158/79 (105) 96 Room Air 02/26/23 01:00 74 02/25/23 21:53 96 Room Air 02/25/23 21:00 36.6 62 20 147/82 (103) 96 Room Air 02/25/23 20:22 Room Air 02/25/23 19:12 96 Room Air 02/25/23 19:00 104 02/25/23 15:28 36.8 80 20 150/88 (108) 95 Room Air 02/25/23 14:26 96 Nasal Cannula 1.50 02/25/23 13:00 86 02/25/23 12:00 36.6 57 18 125/75 (92) 96 Room Air 02/25/23 10:35 Nasal Cannula 1.00 02/25/23 08:00 Room Air 02/25/23 07:41 36.8 55 18 123/71 (88) 95 Room Air I & O 02/26/23 07:00 Intake Total 2710 ml Output Total 3050 ml Balance -340 ml Capillary Refill : Less Than 3 Seconds General Appearance: No Apparent Distress, WD/WN HEENT: PERRL/EOMI, Moist Mucous Membranes Neck: Non Tender, Supple Respiratory: Lungs Clear, Normal Breath Sounds, No Accessory Muscle Use, No Respiratory Distress Cardiovascular: Regular Rate, Rhythm, No Gallop, No Murmur Peripheral Pulses: 2+ Dorsalis Pedis (R), 2+ Left Dors-Pedis (L) Gastrointestinal: non tender, soft Extremity: No Calf Tenderness, No Pedal Edema Neurologic/Psychiatric: Alert, Oriented x3 Skin: Normal Color, Warm/Dry Lymphatic: No Adenopathy Assessment/Plan Assessment/Plan Assessment/Plan Perforated Diverticulitis - perforation with abscess and free air- improved Diffuse Abd pain- resolved Nausea-resolved Vomiting-resolved Leukocytosis -resolved No peritoneal signs, no pain on exam, WBC back to normal. CT abd/pelvis today showed decrease in abscess size and decreased free air in abd. Pt feels better and wants to go home, consider DC home with colonoscopy in about 8weeks after resolution of symptoms IV Abx-Zosyn/Flagyl pain control prn IVF Clears Anti-emetics Nicotine patch prn CIWA protocol COLIN CORONA DO 02/26/23 0752: Subjective Subjective/Events-last exam Feeling well. No pain. Is on clears but eating sausage biscuit this morning and ice cream last night. Pain controlled. No new complaints. Denies n/v fever sweats chills shortness of breath or chest pain. Objective Exam General Appearance: No Apparent Distress, WD/WN HEENT: PERRL/EOMI, Normal ENT Inspection Neck: Non Tender, Supple Respiratory: Chest Non Tender, No Accessory Muscle Use, No Respiratory Distress Cardiovascular: Regular Rate, Rhythm, No JVD Gastrointestinal: non tender, soft Extremity: Non Tender, No Calf Tenderness Neurologic/Psychiatric: Alert, Oriented x3 Skin: Normal Color, Warm/Dry Lymphatic: No Adenopathy Assessment/Plan Assessment/Plan Assessment/Plan Perforated Diverticulitis - perforation with abscess and free air- improved Diffuse Abd pain- resolved Nausea-resolved Vomiting-resolved Leukocytosis -resolved No peritoneal signs, no pain on exam, WBC back to normal. CT abd/pelvis yesterday showed decrease in abscess size and decreased free air in abd. Pt feels better and wants to go home, DC home with colonoscopy in about 8weeks after resolution of symptoms Convert to oral abx pain control prn IVF Clears slowly advance Anti-emetics l Supervisory-Addendum Brief Verification & Attestation Participated in pt care: history, MDM, physical Personally performed: exam, history, MDM, supervision of care Care discussed with: Medical Student Procedures: n/a Results interpretation: Verified all documentation Verification and Attestation of Medical Student E/M Service A medical student performed and documented this service in my presence. I reviewed and verified all information documented by the medical student and made modifications to such information, when appropriate. I personally performed the physical exam and medical decision making. Colin Corona, Feb 26, 2023,07:52 LIZY MULLINS Feb 26, 2023 07:19 COLIN CORONA DO Feb 26, 2023 07:52
[2023-02-26 07:21] VITALS: BP 156/89
[2023-02-26] MEDS ORDERED: ACHD5005 PO (07:46)
[2023-02-26] MEDS ORDERED: AMOX1TAB12 PO (07:48)
--- NOTE | 2023-02-26 07:50 | Discharge Inst-Simple/Standard ---
Discharge Inst-Standard Discharge Medications New, Converted or Re-Newed RX: Transmitted to Pharmacy Patient Instructions/Follow Up Plan of Care/Instructions/FU: 2 weeks Chloe Activity as Tolerated: Yes Discharge Diet: Liquid Diet (advance diet in 2 days.) Other Inst to Patient Follow up Appt: Make appointment for 2 week. Instructions: No strenuous activity. May shower in 24 hours, no tub bath or soaking. Use incentive spirometer at home as directed. No Smoking Symptoms to Report: Appetite Changes, Extremity Discoloration, Numbness/Tingling, Swelling Incre ased, Bleeding Excessive, Eyesight Changes, Pain Increased, Urine Color Change, Constipation(Persistent), Fever over 101 degree F, Pain/Pressure in chest, Urinating Difficulty, Cough Up/Vomit Blood, Heart Beat Irreg/Pounding, Pain/Pressure in jaw, Vaginal Bleeding Increase, Cramps in feet or legs, Lightheadedness, Pain/Pressure in shoulder, Diarrhea(Persistent), Memory Changes Suddenly, Questions/Concerns, Weight gain consecutive days, Dizziness/Fainting, Nausea/Vomiting, Shortness of Breath, Weight gain over 2 pounds If questions or concerns contact your physician Or seek help at emergency department. COLIN HAQ DO Feb 26, 2023 07:50
[2023-02-26 09:10] VITALS: BP 156/89
[2023-02-26] MEDS: NICOTINE PATCH REMOVAL TP SCH (09:13)
[2023-02-26] MEDS: NICOTINE 21 MG (NICODERM) PATCH TD SCH (09:13)
== END 2023-02-26 09:10 | disposition home or self-care (01) | DRG 872 ==
LOC: EDUNIT# 19:38 → ER 19:40 → 4TH 21:45
PROVIDERS: ADMIT Surgery; ATTEND Surgery
DX: A41.9 Sepsis, unspecified organism (principal); K57.20 Diverticulitis of large intestine with perforation and abscess without bleeding; H91.10 Presbycusis, unspecified ear; R03.0 Elevated blood-pressure reading, without diagnosis of hypertension; F17.220 Nicotine dependence, chewing tobacco, uncomplicated; K21.9 Gastro-esophageal reflux disease without esophagitis; F41.9 Anxiety disorder, unspecified; F32.A Depression, unspecified; M54.9 Dorsalgia, unspecified; G89.29 Other chronic pain; Z28.310 Unvaccinated for COVID-19
CPT/HCPCS: 36415; 74176; 74177; 80048; 80053; 83605; 83690; 83735; 84484; 85025; 85027; 85652; 86141; 93005; 94664; 94760; 96361; 96365; 96375; 96376

== ENCOUNTER 2023-07-01 17:06 | Emergency (ER) | payer SELFPAY ==
[~2023-07-01] VITALS: Ht 175.2 cm; Wt 78.4 kg
[~2023-07-01 17:06] MED LIST changes: +ACHD5005 PO; +AMOX1TAB12 PO
[2023-07-01 17:10] VITALS: BP 148/114
[2023-07-01] MEDS ORDERED: morphine INJ 10 MG/ML 1ML (SYR OR VIAL) IV STA (17:16)
--- NOTE | 2023-07-01 17:20 | ED Cardiac General ---
History of Present Illness General Chief Complaint: Chest Pain Stated Complaint: NECK PAIN Source: patient Exam Limitations: no limitations (DANIELLE GORDON) History of Present Illness Date Seen by Provider: Jul 01, 2023 Time Seen by Provider: 17:17 Initial Comments Patient is a 53-year-old male who presents to the ED for evaluation for neck pain chest pain left arm pain. Patient states symptoms started around 3:30 PM. Patient was at the [facility] in [place]. Patient states he started having a sharp pain to his left-sided neck that radiate to the right. This pain is rated 9 out of 10. Started having chest pressure on the left side of chest rated 7 out of 10 at the time. Associate shortness of breath without cough. Patient started feeling heaviness to the left arm. Patient started feeling lightheaded. EMS was contacted. Patient received 4 baby aspirin with improvement chest pain to 4 out of 10. History of similar type neck pain in the past. Denies history of coronary artery disease or history of cardiac stents. Patient states 2 weeks ago he may have had a stroke as he had headache and left-sided neck pain but that resolved quickly. Denies of any headache visual changes, unilateral muscle weakness or sensory changes. Family history of coronary artery disease. History of hypertension. Denies smoking, dyslipidemia or diabetes. Denies of any recent travels or surgeries. Denies any drug use (DANIELLE GORDON) Allergies and Home Medications Allergies Coded Allergies: No Known Drug Allergies (Unverified , 04/08/15) Patient Home Medication List Home Medication List Reviewed: Yes (DANIELLE GORDON) Amoxicillin/Potassium Clav (Amox Tr-K Clv 875-125 mg Tab) 875 Mg-125 Mg Tablet, 1 EACH PO BID Prescribed by: COLIN HAQ on 02/26/23 0713 Hydrocodone/Acetaminophen (Hydrocodone-Acetamin 5-325 mg) 5 Mg-325 Mg Tablet, 1 EACH PO Q4H PRN for PAIN-MODERATE (5-7) Prescribed by: COLIN HAQ on 02/26/23 0701 Review of Systems Review of Systems Constitutional: No chills, No diaphoresis, No fever EENTM: No Blurred Vision, No Double Vision, No Eye Pain Respiratory: Denies Cough; Shortness of Air Cardiovascular: Chest Pain Gastrointestinal: Denies Diarrhea, Denies Nausea, Denies Vomiting Genitourinary: Denies Burning, Denies Discharge, Denies Drainage, Denies Frequency, Denies Flank Pain Musculoskeletal: No back pain, No joint pain, No joint swelling; neck pain Skin: No change in color (DANIELLE GORDON) All Other Systems Reviewed Negative Unless Noted: Yes (DANIELLE GORDON) Past Xhpbdhj-Fuddzl-Hwhykz Hx Patient Social History Tobacco Use?: No Substance use?: Yes Substance type: Marijuana Alcohol Use?: Yes (DANIELLE GORDON) Immunizations Up To Date Tetanus Booster (TDap): Unknown First/Initial COVID19 Vaccinat: NO Second COVID19 Vaccination Slim: NO Third COVID19 Vaccination Date: NO (DANIELLE GORDON) Past Medical History Surgery/Hospitalization HX: DIVERTICULITIS Surgeries: Yes (C-SPINE SURGERY WITH HARDWARE; HIATAL HERNIA REPAIR) Abdominal Respiratory: No Currently Using BIPAP: Yes Cardiac: No Hypertension Neurological: No Genitourinary: No Gastrointestinal: Yes (HIATAL HERNIA REPAIR) Gastroesophageal Reflux, Diverticulosis, Hiatal Hernia Musculoskeletal: Yes (CHRONIC NECK PAIN ) Degenerate Disk Disease, Chronic Back Pain Endocrine: No HEENT: No Hearing Impairment: Hard of Hearing Cancer: No Psychosocial: No Anxiety, Depression Integumentary: No Blood Disorders: No (DANIELLE GORDON) Family Medical History Heart Disease, Cancer, Diabetes, Hypertension (DANIELLE GORDON) Physical Exam Vital Signs Vital Signs - First Documented 07/01/23 17:10 Pulse 63 B/P (MAP) 148/114 (125) Pulse Ox 97 O2 Delivery Room Air (LIVE JEWELL MD) Vital Signs Capillary Refill : (DANIELLE GORDON) Height, Weight, BMI Height: 0'67.00" Weight: 189lbs. oz. [id number]; 27.07 BMI Method: General Appearance: No Apparent Distress, WD/WN HEENT: PERRL/EOMI, TMs Normal, Normal ENT Inspection, Pharynx Normal Neck: Full Range of Motion, Non Tender, Supple, Other (Left-sided lateral neck tenderness. No bruits or stridor) Respiratory: Lungs Clear, Normal Breath Sounds, No Accessory Muscle Use, No Respiratory Distress, Other (Left-sided chest wall tenderness.) Cardiovascular: Regular Rate, Rhythm, No Edema, No Gallop, No JVD Gastrointestinal: Normal Bowel Sounds, No Organomegaly, No Pulsatile Mass, Non Tender Extremity: Normal Capillary Refill, Normal Inspection Neurologic/Psychiatric: Alert, Oriented x3, No Motor/Sensory Deficits, Normal Mood/Affect, retort cooler II-XII Norm as Tested Skin: Normal Color, Warm/Dry (DANIELLE GORDON) Progress/Results/Core Measures Results/Orders Lab Results Laboratory Tests Test 07/01/23 17:12 07/01/23 17:39 Range/Units White Blood Count 10.8 4.3-11.0 10^3/uL Red Blood Count 6.01 H 4.30-5.52 10^6/uL Hemoglobin 17.8 H 13.3-17.7 g/dL Hematocrit 53 40-54 % Mean Corpuscular Volume 89 80-99 fL Mean Corpuscular Hemoglobin 30 25-34 pg Mean Corpuscular Hemoglobin Concent 33 32-36 g/dL Red Cell Distribution Width 13.7 10.0-14.5 % Platelet Count 301 130-400 10^3/uL Mean Platelet Volume 9.7 9.0-12.2 fL Immature Granulocyte % (Auto) 0 % Neutrophils (%) (Auto) 68 42-75 % Lymphocytes (%) (Auto) 24 12-44 % Monocytes (%) (Auto) 7 0-12 % Eosinophils (%) (Auto) 1 0-10 % Basophils (%) (Auto) 1 0-10 % Neutrophils # (Auto) 7.3 1.8-7.8 10^3/uL Lymphocytes # (Auto) 2.6 1.0-4.0 10^3/uL Monocytes # (Auto) 0.7 0.0-1.0 10^3/uL Eosinophils # (Auto) 0.1 0.0-0.3 10^3/uL Basophils # (Auto) 0.1 0.0-0.1 10^3/uL Immature Granulocyte # (Auto) 0.0 0.0-0.1 10^3/uL Prothrombin Time 12.6 12.2-14.7 SEC INR Comment 0.9 0.8-1.4 Activated Partial Thromboplast Time 29 24-35 SEC D-Dimer < 0.27 0.00-0.49 UG/ML Sodium Level 140 135-145 MMOL/L Potassium Level 4.6 3.6-5.0 MMOL/L Chloride Level 104 98-107 MMOL/L Carbon Dioxide Level 24 21-32 MMOL/L Anion Gap 12 5-14 MMOL/L Blood Urea Nitrogen 18 7-18 MG/DL Creatinine 1.00 0.60-1.30 MG/DL Estimat Glomerular Filtration Rate 89 BUN/Creatinine Ratio 18 Glucose Level 99 70-105 MG/DL Calcium Level 10.0 8.5-10.1 MG/DL Corrected Calcium 9.6 8.5-10.1 MG/DL Magnesium Level 2.3 1.6-2.4 MG/DL Total Bilirubin 0.6 0.1-1.0 MG/DL Aspartate Amino Transf (AST/SGOT) 17 5-34 U/L Alanine Aminotransferase (ALT/SGPT) 25 0-55 U/L Alkaline Phosphatase 95 40-136 U/L Myoglobin 43.3 10.0-92.0 NG/ML Troponin I < 0.028 <0.028 NG/ML B-Type Natriuretic Peptide 13.9 <100.0 PG/ML Total Protein 8.4 H 6.4-8.2 GM/DL Albumin 4.5 3.2-4.5 GM/DL Lipase 124 H 8-78 U/L Urine Color YELLOW Urine Clarity CLEAR Urine pH 6.0 5-9 Urine Specific [place] 1.020 1.016-1.022 Urine Protein NEGATIVE NEGATIVE Urine Glucose (UA) NEGATIVE NEGATIVE Urine Ketones NEGATIVE NEGATIVE Urine Nitrite NEGATIVE NEGATIVE Urine Bilirubin NEGATIVE NEGATIVE Urine Urobilinogen 0.2 < = 1.0 MG/DL Urine Leukocyte Esterase NEGATIVE NEGATIVE Urine RBC (Auto) 1+ H NEGATIVE Urine RBC NONE /HPF Urine WBC 0-2 /HPF Urine Crystals NONE /LPF Urine Bacteria TRACE /HPF Urine Casts NONE /LPF Urine Mucus NEGATIVE /LPF Urine Culture Indicated NO Urine Opiates Screen NEGATIVE NEGATIVE Urine Oxycodone Screen NEGATIVE NEGATIVE Urine Methadone Screen NEGATIVE NEGATIVE Urine Propoxyphene Screen NEGATIVE NEGATIVE Urine Barbiturates Screen NEGATIVE NEGATIVE Ur Tricyclic Antidepressants Screen NEGATIVE NEGATIVE Urine Phencyclidine Screen NEGATIVE NEGATIVE Urine Amphetamines Screen POSITIVE H NEGATIVE Urine Methamphetamines Screen POSITIVE H NEGATIVE Urine Benzodiazepines Screen NEGATIVE NEGATIVE Urine Cocaine Screen NEGATIVE NEGATIVE Urine Cannabinoids Screen POSITIVE H NEGATIVE (LIVE JEWELL MD) Vital Signs/I&O 07/01/23 17:10 Pulse 63 B/P (MAP) 148/114 (125) Pulse Ox 97 O2 Delivery Room Air (LIVE JEWELL MD) Comment Sinus rhythm, 63 bpm, QRS duration 89 MS, QTc 388 MS (DANIELLE GORDON) Departure Communication (PCP) Reviewed previous ER visits, H&P, lab testing. Patient was sent to the ED by EMS for further evaluation for this left-sided neck pain chest pain left arm pain short of breath and lightheadedness. Patient appears in no acute distress. Reviewed previous cardiac work-ups. Was admitted in 2019 had a stress test performed which did not note any ischemic changes. No previous cardiac work-up since. Cardiac work-up was initiated with EKG, troponin. Denies of any alcohol use or drug use. Chest x-ray was ordered. EKG did not note any acute arrhythmia, ST elevation or depression. Patient did receive 4 full aspirins by EMS before arrival with improvement of chest pain. Patient CBC was grossly unremarkable. Chemistry was grossly unremarkable. Neuro normal troponin, BMP and D-dimer. Normal coags. Lipase was 124. Denies of any specific upper abdominal pain or tenderness on palpation. Chest x-ray was negative for pneumonia, pneumothorax, mediastinal widening. Drug screen positive for methamphetamine use. Due to reassuring lab work recommended serial 2-hour delta troponin. Patient refused to wait that long and states he has a long walk home. Patient hemodynamically stable. Patient signed out AMA. Discussed with patient not able to rule out a cardiac event such as Nstemi that did happen before arrival. Recommended delta troponin. Patient acknowledges. Provided cardiology outpatient follow-up. If any worsening symptoms such as chest pain, shortness of breath to return back to ED. Patient has no cervical midline tenderness. Patient has no focal neural deficits such as strokelike symptoms. No evidence of bruits. Does have tenderness to the left-sided chest which may be more musculoskeletal. Left-sided neck tenderness. Recommend continue follow-up outpatient. If any worsening symptoms return back to ED for further evaluations. (DANIELLE GORDON) Impression Primary Impression: Chest pain Disposition: AGAINST MEDICAL ADVICE Condition: Against Medical Advice Departure-Patient Inst. Decision time for Depature: 19:00 (DANIELLE GORDON) Referrals: LIDYA CABELLO MD NO,LOCAL PHYSICIAN (PCP) Primary Care Physician Patient Instructions: Chest Pain (DC) NAME: JOSH SANTANA [facility] REC#: [id number] PT STATUS: REG ER : 03/30/2021 PHYSICIAN: LIVE JEWELL MD ADMIT DATE: 07/01/23/ER Signed Date of Exam:07/01/23 CHEST 1 VIEW, AP/PA ONLY HISTORY: Cough and fever TECHNIQUE: Frontal view of the chest. COMPARISON: 05/08/2023 FINDINGS: The cardiac silhouette is normal in size and shape. The pulmonary vascularity is within normal limits. There are prominent perihilar interstitial markings bilaterally. No focal consolidation is seen. No pleural effusions or pneumothoraces are present. IMPRESSION: Prominent perihilar lung markings bilaterally. This is most commonly seen with viral/atypical pneumonitis or reactive airway disease. Dictated by: Dictated on workstation # [id number] Dict: 07/01/238 Trans: 07/01/23 1725 [facility] [id number] Interpreted by: GERTRUDE EASOTN MD Electronically signed by: GERTRUDE EASTON MD 07/01/23 1725 (LIVE JEWELL MD) DANIELLE GORDON Jul 01, 2023 17:20 LIVE JEWELL MD Jul 02, 2023 08:13
[2023-07-01 17:21] LABS: BASOPHILS # (AUTO) 0.1 10^3/uL (0.0-0.1); BASOPHILS % (AUTO) 1 % (0-10); EOSINOPHILS # (AUTO) 0.1 10^3/uL (0.0-0.3); EOSINOPHILS % (AUTO) 1 % (0-10); HEMATOCRIT 53 % (40-54); HEMOGLOBIN 17.8 g/dL (13.3-17.7); LYMPHOCYTES # (AUTO) 2.6 10^3/uL (1.0-4.0); LYMPHOCYTES % (AUTO) 24 % (12-44); MEAN CORPUSCULAR HEMOGLOBIN 30 pg (25-34); MEAN CORPUSCULAR HGB CONC 33 g/dL (32-36); MEAN CORPUSCULAR VOLUME 89 fL (80-99); MEAN PLATELET VOLUME 9.7 fL (9.0-12.2); MONOCYTES # (AUTO) 0.7 10^3/uL (0.0-1.0); MONOCYTES % (AUTO) 7 % (0-12); NEUTROPHILS # (AUTO) 7.3 10^3/uL (1.8-7.8); NEUTROPHILS % (AUTO) 68 % (42-75); PLATELET COUNT 301 10^3/uL (130-400); WHITE BLOOD COUNT 10.8 10^3/uL (4.3-11.0)
[2023-07-01 17:28] LABS: ALBUMIN 4.5 GM/DL (3.2-4.5); CHLORIDE 104 MMOL/L (98-107); POTASSIUM 4.6 MMOL/L (3.6-5.0); SODIUM 140 MMOL/L (135-145)
[2023-07-01 17:30] LABS: INR 0.9 (0.8-1.4); PROTHROMBIN TIME PATIENT 12.6 SEC (12.2-14.7)
[2023-07-01 17:31] LABS: GLUCOSE 99 MG/DL (70-105); TOTAL PROTEIN 8.4 GM/DL (6.4-8.2)
[2023-07-01 17:32] LABS: CARBON DIOXIDE 24 MMOL/L (21-32)
[2023-07-01 17:33] LABS: BILIRUBIN,TOTAL 0.6 MG/DL (0.1-1.0)
[2023-07-01 17:34] LABS: ALKALINE PHOSPHATASE 95 U/L (40-136); GFR ESTIMATED 89
[2023-07-01 17:35] LABS: BUN/CREATININE RATIO 18
--- NOTE | 2023-07-01 17:36 | Diagnostic Imaging Report ---
PATIENT HISTORY: Chest pain. TECHNIQUE: Single frontal view of the chest. COMPARISON: 05/16/2020. FINDINGS: The lung volumes are normal. No focal consolidation is seen. No large pleural effusion or pneumothorax is seen. The cardiomediastinal silhouette is normal in size and contour. No acute osseous abnormality is seen. There is old posttraumatic deformity of the left clavicle and hardware in the cervical spine. IMPRESSION: No acute pulmonary abnormality seen. Dictated by: Dictated on workstation # [id number]
[2023-07-01 17:37] LABS: ALANINE AMINOTRANSFERASE 25 U/L (0-55); MAGNESIUM 2.3 MG/DL (1.6-2.4)
[2023-07-01 17:38] LABS: LIPASE 124 U/L (8-78)
[2023-07-01 17:51] LABS: BILIRUBIN,URINE NEGATIVE (NEGATIVE); CLARITY,URINE CLEAR; COLOR,URINE YELLOW; GLUCOSE, URINE (UA) NEGATIVE (NEGATIVE); KETONES,URINE NEGATIVE (NEGATIVE); LEUKOCYTE ESTERASE ,URINE NEGATIVE (NEGATIVE); NITRITE,URINE NEGATIVE (NEGATIVE); PROTEIN,URINE NEGATIVE (NEGATIVE)
[2023-07-01 17:58] LABS: BACTERIA,URINE TRACE /HPF; WBC,URINE 0-2 /HPF
[2023-07-01 18:03] LABS: AMPHETAMINE SCREEN, URINE POSITIVE (NEGATIVE); BARBITURATE SCREEN URINE NEGATIVE (NEGATIVE); BENZODIAZEPINES SCREEN URINE NEGATIVE (NEGATIVE); CANNABINOID SCREEN, URINE POSITIVE (NEGATIVE); COCAINE SCREEN URINE NEGATIVE (NEGATIVE); METHADONE STAT NEGATIVE (NEGATIVE); OPIATE SCREEN URINE NEGATIVE (NEGATIVE); OXYCODONE STAT NEGATIVE (NEGATIVE); PROPOXYPHENE STAT NEGATIVE (NEGATIVE); TRICYCLIC ANTIDEPRESSANTS SCRE NEGATIVE (NEGATIVE)
== END 2023-07-01 19:02 | disposition left against medical advice (07) ==
LOC: EDUNIT# 17:06 → ER 17:08
DX: R07.89 Other chest pain (principal); M54.2 Cervicalgia; Z86.79 Personal history of other diseases of the circulatory system; Z28.310 Unvaccinated for COVID-19; Z99.89 Dependence on other enabling machines and devices
CPT/HCPCS: 36415; 71045; 80053; 80306; 81000; 83690; 83735; 83874; 83880; 84484; 85025; 85379; 85610; 85730; 93005